=== PATIENT | female | born 2000 | race Caucasian/White ===

== ENCOUNTER 2024-11-16 16:45 | Inpatient (IN) ==
--- OUTSIDE RECORDS SUMMARY | 2024-11-16 16:52 | External Medical Summary | Continuity of Care Document ---
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 Role Phone Luanne Sawyer Primary Care Physician [phone] [id number] Date(s): 10/10/24 - 10/10/24 [place] [address] [address] [facility] Diagnostic Radiology [address] [place] [address] Discharge Disposition: Home or Self Care Attending Physician: HARESH Dennis Davine Referring Physician: HARESH Dennis Davine Allergies, Adverse Reactions, Alerts Substance Criticality Severity Reaction Reaction Severity Status soy nausea, upset stomach Active adhesive tape Rash Itching Blister Active Cipro Confusion Active Percocet seizure Active Drysol Rash Active Augmentin hearing loss Active Glutens intolerance Active milk products Intolerance to lactose Diarrhea Active Cyproheptadine Hydrochloride leg cramps Active Latex ??? Active Mucinex Unable to assess criticality Severe Wheezing symptom Angioedema and/or urticaria Active Immunizations Given and Recorded Vaccine Date Status Refusal Reason influenza virus vaccine, inactivated 09/21/22 Give n influenza virus vaccine, inactivated 06/28/19 Give n influenza virus vaccine, inactivated 08/09/18 Give n influenza virus vaccine, inactivated 09/16/03 Jae rded SARS-CoV-2 (COVID-19) mRNA-1273 vaccine 02/15/21 R ecorded SARS-CoV-2 (COVID-19) mRNA-1273 vaccine 01/13/21 R ecorded pneumococcal 23-valent vaccine 06/28/19 Given hepatitis A pediatric vaccine 04/10/18 Given meningococcal conjugate vaccine 04/10/18 Given meningococcal conjugate vaccine 06/18/15 Recorded human papillomavirus vaccine 02/27/16 Recorded human papillomavirus vaccine 09/05/15 Recorded human papillomavirus vaccine 06/18/15 Recorded varicella virus vaccine 06/18/15 Recorded varicella virus vaccine 07/20/01 Recorded tetanus/diphtheria/pertuss, acel (Tdap) 1 06/18/15 Recorded tetanus/diphtheria/pertuss, acel (Tdap) 06/18/15 R ecorded measles/mumps/rubella virus vaccine 2 06/18/15 Rec orded measles/mumps/rubella virus vaccine 07/05/05 Recor ded measles/mumps/rubella virus vaccine 08/03/03 Recor ded measles/mumps/rubella virus vaccine 3 10/03/02 Rec orded poliovirus vaccine, inactivated 07/05/05 Recorded poliovirus vaccine, inactivated 4 06/10/03 Recorde d poliovirus vaccine, inactivated 01/29/02 Recorded poliovirus vaccine, inactivated 01/17/01 Recorded poliovirus vaccine, inactivated 00 Recorded poliovirus vaccine, inactivated 00 Recorded poliovirus vaccine, inactivated 5 00 Recorde d diphtheria/tetanus/pertuss, acel (DTaP) 07/05/05 R ecorded diphtheria/tetanus/pertuss, acel (DTaP) 01/29/02 R ecorded diphtheria/tetanus/pertuss, acel (DTaP) 01/17/01 R ecorded diphtheria/tetanus/pertuss, acel (DTaP) 00 R ecorded diphtheria/tetanus/pertuss, acel (DTaP) 00 R ecorded influenza virus vaccine, live 6 10/03/02 Recorded hepatitis B pediatric vaccine 10/23/01 Recorded hepatitis B pediatric vaccine 00 Recorded hepatitis B pediatric vaccine 00 Recorded 1Result Comment: [04/06/2017 Uncharted] double entry 2Result Comment: 2021-02-19: Historical information-source unspecified 3Result Comment: 2021-02-19: Historical information-source unspecified 4Result Comment: 2021-02-19: Historical information-source unspecified 5Result Comment: 2021-02-19: Historical information-source unspecified 6Result Comment: [04/05/2017 Uncharted] error Medications Aimovig SureClick Autoinjector 140 mg/mL subcutaneous solution Start: 04/14/23 3:14:00 PM EDT, See Instructions, Disp# 1 mL, Refills: 11, inject 1 milliliter subcutaneously Every Month, Pharmacy: [facility] #[id number] Start Date: 04/14/23 Status: Ordered atomoxetine 40 mg oral capsule Start: 08/06/24 11:05:00 AM EST, 1 cap, PO, qAM, Disp# 90 cap, Refills: 0, Pharmacy: [facility] [id number] Start Date: 08/06/24 Status: Ordered Avita 0.025% topical cream Start: 04/10/20 12:31:00 PM EDT, 1 appl, topical, qhs, PRN Start Date: 04/10/20 Status: Ordered B-Plex (Vitamin B Complex) oral tablet Start: 03/04/19 1:25:00 PM EDT, 1 tab, PO, Daily Start Date: 03/04/19 Status: Ordered Botox. Start: 10/21/19 8:15:00 AM EST, under both under arms q 6 months Start Date: 10/21/19 Status: Ordered clonazePAM 1 mg oral tablet, disintegrating Start: 06/09/22 9:14:00 AM EDT, See Instructions, Disp# 10 tab, Refills: 0, 1 to 2 tab as needed for auras/seizures, PRN: seizures, Pharmacy: [facility] #[id number] Start Date: 06/09/22 Status: Ordered Creon 36,000 units oral delayed release capsule Start: 09/09/22 9:15:00 AM EST, See Instructions, Disp# 240 cap, Refills: 11, take 2 capsules by mouth four times a day (TAKE 2 CAPSULES WITH EACH MEAL AND 1 CAPSULE WITH EACH SNACK), Pharmacy: [facility] #[id number] Start Date: 09/09/22 Status: Ordered DULoxetine 60 mg oral delayed release capsule Start: 08/06/24 11:05:00 AM EST, 1 cap, PO, Daily, Disp# 90 cap, Refills: 0, Pharmacy: [facility] [id number] Start Date: 08/06/24 Status: Ordered Emla 2.5%-2.5% topical cream Start: 12/27/19 5:30:00 PM EDT, 1 appl, topical, ONCE, Disp# 30 g, Refills: 3, 15-20 minutes prior to immunoglobulin infusion Start Date: 12/27/19 Status: Ordered EPINEPHrine 0.3 mg injectable kit Start: 12/15/23 11:11:00 AM EDT, 0.3 mg =, IM, ONCE, Disp# 1 kit, Refills: 1, PRN: as needed for anaphylaxis, Pharmacy: [facility] #[id number] Start Date: 12/15/23 Status: Ordered famotidine 20 mg oral tablet Start: 09/30/24 12:09:00 PM EST, 1 tab, PO, bid, Disp# 180 tab, Refills: 3, Pharmacy: [id number] Start Date: 09/30/24 Status: Ordered ferrous sulfate 325 mg (65 mg elemental iron) oral delayed release tablet Start: 01/04/23 8:34:00 AM EDT, 1 tab, PO, Daily Start Date: 01/04/23 Status: Ordered Flonase 50 mcg/inh nasal spray Start: 04/10/20 12:17:00 PM EDT, 2 spray, intranasal, Daily Start Date: 04/10/20 Status: Ordered Florinef Acetate 0.1 mg oral tablet Start: 11/06/23 3:32:00 PM EST, 1 tab, PO, Daily, Disp# 90 tab, Refills: 3, Pharmacy: [facility] #[id number] Start Date: 11/06/23 Status: Ordered folic acid 1 mg oral tablet Start: 08/09/19 12:25:00 PM EST, 1 tab, PO, Daily, Disp# 90 tab, Refills: 3, other Start Date: 08/09/19 Stop Date: 08/03/20 Status: Ordered glycopyrrolate 1 mg oral tablet Start: 06/25/24 11:12:00 AM EDT, 1 tab, PO, bid, Disp# 60 tab, Refills: 0, Pharmacy: [facility]/pharmacy #[id number] Start Date: 06/25/24 Status: Ordered immune globulin 20% subcutaneous solution Start: 04/13/23 11:41:00 AM EDT, 10 g =, subQ, q7days, Disp# 40 g, prefilled syringes, other Start Date: 04/13/23 Status: Ordered lamoTRIgine 150 mg oral tablet Start: 08/06/24 3:07:00 PM EST, 1 tab, PO, bid, Disp# 180 tab, Refills: 2, Pharmacy: [facility] [id number] Start Date: 08/06/24 Status: Ordered Lotrisone 1%-0.05% topical cream Start: 05/18/23 2:19:00 PM EDT, 1 appl, topical, bid, Disp# 15 g, Refills: 0, Apply to the skin up to twice daily for 7days as needed for itching, Pharmacy: [facility][id number] Start Date: 05/18/23 Stop Date: 05/25/23 Status: Ordered Metoprolol Succinate ER 25 mg oral tablet, extended release Start: 08/08/24 10:29:00 AM EST, 2 tab, PO, Daily, Disp# 180 tab, Refills: 2, Pharmacy: [facility] [id number] Start Date: 08/08/24 Status: Ordered Nitro-Bid 2% transdermal ointment Start: 12/10/18 4:45:00 PM EDT, 1 inch, topical, tid, for Raynaud's, PRN: See Order Comments Start Date: 12/10/18 Status: Ordered norethindrone 5 mg oral tablet Start: 02/15/24 5:15:00 PM EDT, 1 tab, PO, Daily, Disp# 90 tab, Refills: 0, [id number] Start Date: 02/15/24 Status: Ordered traZODone 50 mg oral tablet Start: 09/05/23 2:06:00 PM EST, 0.5 tab, PO, qhs, Disp# 45 tab, Refills: 0, Pharmacy: [facility] Start Date: 09/05/23 Status: Ordered Xembify 20% subcutaneous solution Start: 08/26/24 5:45:00 PM EST, 10 g =, subQ, q7days, Disp# 40 g, other Start Date: 08/26/24 Status: Ordered ZyrTEC 10 mg oral tablet Start: 07/02/24 11:51:00 AM EDT, 1 tab, PO, bid, Disp# 60 tab, Refills: 0, PRN: as needed for allergy symptoms, [id number] Start Date: 07/02/24 Stop Date: 08/01/24 Status: Ordered Problem List Condition Confirmation Course Effective Dates Status Health Status Informant Abdominal muscle pain Confirmed Active Chronic allergic rhinitis Confirmed Active Allergy to adhesive Confirmed Active Allergy status to other drugs, medicaments and biological substances Confirmed Active Attention deficit hyperactivity disorder (ADHD) Confirmed Active 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 Celiac disease Confirmed Active 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 deficiency Confirmed Active Dysmenorrhea Confirmed Active Dysphagia Confirmed Active Epilepsy Confirmed 09/19/16 Active Exocrine pancreatic insufficiency Confirmed Active Foot drop Confirmed Active Right radial head fracture Confirmed Active GERD (gastroesophageal reflux disease) Confirmed Active 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 Father has Manley's muscular dystrophy Procedures Procedure Date Related Diagnosis Body Site Status Trigger point infiltration o f local anesthetic and steroid 04/14/23 Completed Trigger point infiltration o f local anesthetic and steroid 02/14/23 Completed Injection 1 11/25/22 Completed Procedure 2 10/12/22 Completed Injection 3 08/30/22 Completed Injection 4 07/22/22 Completed Trigger point injection 06/08/22 C ompleted Trigger point injection 03/29/22 C ompleted Trigger point injection 01/21/22 C ompleted Trigger point injection 12/08/21 C ompleted TPI - Trigger point injection 10/13/21 Completed TPI - Trigger point injection 5 03/24/21 Completed TAP - transversus abdominus plane block 09/23/20 Completed Endoscopy 2013 Completed Biopsy 7 04/09/07 Completed Tonsillectomy and adenoidectomy 2004 Completed Appendectomy 04/2002 Completed Enteroplasty 04/2002 Completed Adelaide fundoplication 04/2002 Com pleted Tube feeding 8 04/2002 Completed Pyloroplasty 00 Completed Colonoscopy 9 Completed Insertion - action 10 Com pleted 1TPI 2TPI right uppper quadrant 3TPI 4TPI 5abdominal 6multiple 7Muscle biopsy (left vastus lateralis) 8Twice and removed twice 9multiple 10nexplanon Oct 21 2021 Results Radiology Reports * Exam Date Time Procedure Performing Provider Status 10/10/24 1:14 PM US Transvaginal Non-OB Nimisha Davis ; Final Notes: (US Transvaginal Non-OB) Reason For Exam: Concerned about endometriosis and PCOS US Transvaginal Non-OB EXAMINATION: US Transvaginal Non-OB CLINICAL HISTORY: R10.9: Unspecified abdominal pain; R53.83: Other fatigue; R63.5: Abnormal weight gain; Concerned about endometriosis and PCOS LMP: No recent menses on control. COMPARISON: Transvaginal ultrasound from 09/01/2015. TECHNIQUE: Transvaginal grayscale and color Doppler ultrasound images of the pelvis with survey transabdominal views when needed. FINDINGS: UTERUS: Normal in size and configuration. No myometrial mass. 7.1 x 2.5 x 3.2 cm (length x AP x width) ENDOMETRIUM: Small amount of fluid within the endometrium and cervix. Thickness: 3 mm. OVARIES: Blood flow with color Doppler is documented to both ovaries. Right ovary: 2.9 x 2.7 x 2.5 cm. Normal. Left ovary: 2.2 x 2.6 x 1.9 cm. Normal. ADNEXA/CUL-DE-SAC: No free fluid. IMPRESSION: 1. Small amount of fluid within the endometrium and cervix, nonspecific. 2. Normal sonographic appearance of both ovaries. [place] Act 112: This study does not meet the requirements of [place] Act 112. Dr. Ayde Bruce is the dictating resident. Finalized reports status indicates that the attendinghas reviewed the images and report, and agrees with the interpretation. Preliminary report status should be regarded as NOT interpreted by the attending radiologist. Workstation ID: [id number] Final Dictated by:MD Bruce Janelle Dictated DT/TM:10/11/2024 9:40 Resident:MD Bruce Janelle Signed by:MD Lazaro Nabeel I Signed (Electronic Signature):10/11/2024 9:39 a Social History Social History Type Response Tobacco Household tobacco co ncerns: No. Smoking Status Never smoked cigaret dora Sex Female Sex Representation Female (finding) Implantable Device List Procedure Provider Procedure Date Device Type Site Unknown Unknown 10/21/21 Unknown Unknown Device Identifier Serial Number Lot or Batch Number Manufacturing Date Expiration Date Distinct Identification Code MRI Safety Implantable Status Assigning Authority Unknown 1 Unknown Unknown Unknown Unknown Unknown Unknown Active U nknown 1left inner upper arm Patient Care team information Care Team Personnel Name: MD Juan, Obie Brice Position: Provider - Terminated Member Role: Lifetime Relationship Address: [address] [facility] [place] [address] [place] [address] [place] Name: Hasmukh, PhD, Ignacia Dumont Position: Physician - Sleep Medicine Member Role: Lifetime Relationship Address: [address] [place] [address] [place] Name: MD Sherif, Dillon Cano Position: Physician - Family Med Member Role: Lifetime Relationship Address: [address] [place] [address] [place] Name: MD Eliot, Ravi Barahona Position: Referring Member Role: Lifetime Relationship Address: [facility] [address] [place] [address] [address] [place] [address] [place] Name: HARESH Elizabeth Hillarie B Position: Nurse Practitioner - Psychotherapy Member Role: Lifetime Relationship Address: [address] [place] [address] [place] Name: DO Sawyer Helen M Position: Resident Member Role: Primary Care Provider Address: [address] [place] [address] Care Team Related Persons Name: MEAGAN BRYAN Name: TRAVIS BRYAN Name: TRAVIS BRYAN
--- OUTSIDE RECORDS SUMMARY | 2024-11-16 16:52 | External Medical Summary | Continuity of Care Document ---
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 Role Phone Luanne Sawyer Primary Care Physician [phone] Encounter [facility] [id number] Date(s): 10/10/24 - 10/10/[address] [id number] Encounter Diagnosis Abnormal weight gain(Discharge Diagnosis) - 10/10/24 Other fatigue(Discharge Diagnosis) - 10/10/24 Unspecified abdominal pain(Discharge Diagnosis) - 10/10/24 Discharge Disposition: Home or Self Care Attending Physician: HARESH Dennis Davine Referring Physician: HARESH Dennis Davine Allergies, Adverse Reactions, Alerts Substance Criticality Severity Reaction Reaction Severity Status adhesive tape Rash Itching Blister Active Cipro Confusion Active Percocet seizure Active Drysol Rash Active Augmentin hearing loss Active Glutens intolerance Active milk products Intolerance to lactose Diarrhea Active soy nausea, upset stomach Active Cyproheptadine Hydrochloride leg cramps Active Latex [...] inject 1 milliliter subcutaneously Every Month, Pharmacy: [facility] #[id number] Start Date: 04/14/23 Status: Ordered atomoxetine 40 mg oral capsule Start: 08/06/24 11:05:00 AM EST, 1 cap, PO, qAM, Disp# 90 cap, Refills: 0, Pharmacy: [facility] [id number] Start Date: 08/06/24 Status: Ordered Avita 0.025% [...] as needed for auras/seizures, PRN: seizures, Pharmacy: [facility] #[id number] Start Date: 06/09/22 Status: Ordered Creon 36,000 units oral delayed release capsule Start: 09/09/22 9:15:00 AM EST, See Instructions, Disp# 240 cap, Refills: 11, take 2 capsules by mouth four times a day (TAKE 2 CAPSULES WITH EACH MEAL AND 1 CAPSULE WITH EACH SNACK), Pharmacy: [facility] #[id number] Start Date: 09/09/22 Status: Ordered DULoxetine 60 mg oral delayed release capsule Start: 08/06/24 11:05:00 AM EST, 1 cap, PO, Daily, Disp# 90 cap, Refills: 0, Pharmacy: [facility] [id number] Start Date: 08/06/24 Status: Ordered Emla 2.5%-2.5% topical cream Start: 12/27/19 5:30:00 PM EDT, 1 appl, topical, ONCE, Disp# 30 g, Refills: 3, 15-20 minutes prior to immunoglobulin infusion Start Date: 12/27/19 Status: Ordered EPINEPHrine 0.3 mg injectable kit Start: 12/15/23 11:11:00 AM EDT, 0.3 mg =, IM, ONCE, Disp# 1 kit, Refills: 1, PRN: as needed for anaphylaxis, Pharmacy: [facility] #[id number] Start Date: 12/15/23 Status: Ordered famotidine 20 mg oral tablet Start: 09/30/24 12:09:00 PM EST, 1 tab, PO, bid, Disp# 180 tab, Refills: 3, Pharmacy: [id number] Start Date: 09/30/24 Status: Ordered ferrous sulfate [...] Daily, Disp# 90 tab, Refills: 3, Pharmacy: [facility] #[id number] Start Date: 11/06/23 Status: Ordered folic acid 1 mg oral tablet Start: 08/09/19 12:25:00 PM EST, 1 tab, PO, Daily, Disp# 90 tab, Refills: 3, other Start Date: 08/09/19 Stop Date: 08/03/20 Status: Ordered glycopyrrolate 1 mg oral tablet Start: 06/25/24 11:12:00 AM EDT, 1 tab, PO, bid, Disp# 60 tab, Refills: 0, Pharmacy: [facility]acy #[id number] Start Date: 06/25/24 Status: Ordered immune globulin 20% subcutaneous solution Start: 04/13/23 11:41:00 AM EDT, 10 g =, subQ, q7days, Disp# 40 g, prefilled syringes, other Start Date: 04/13/23 Status: Ordered lamoTRIgine 150 mg oral tablet Start: 08/06/24 3:07:00 PM EST, 1 tab, PO, bid, Disp# 180 tab, Refills: 2, Pharmacy: [id number] Start Date: 08/06/24 Status: Ordered Lotrisone 1%-0.05% topical cream Start: 05/18/23 2:19:00 PM EDT, 1 appl, topical, bid, Disp# 15 g, Refills: 0, Apply to the skin up to twice daily for 7days as needed for itching, [facility] #[id number] Start Date: 05/18/23 Stop Date: 05/25/23 Status: Ordered Metoprolol Succinate ER 25 mg oral tablet, extended release Start: 08/08/24 10:29:00 AM EST, 2 tab, PO, Daily, Disp# 180 tab, Refills: 2, Pharmacy: [facility] [id number] Start Date: 08/08/24 Status: Ordered Nitro-Bid 2% transdermal ointment Start: 12/10/18 4:45:00 PM EDT, 1 inch, topical, tid, for Raynaud's, PRN: See Order Comments Start Date: 12/10/18 Status: Ordered norethindrone 5 mg oral tablet Start: 02/15/24 5:15:00 PM EDT, 1 tab, PO, Daily, Disp# 90 tab, Refills: 0, [id number] Start Date: 02/15/24 Status: Ordered traZODone 50 mg oral tablet Start: 09/05/23 2:06:00 PM EST, 0.5 tab, PO, qhs, Disp# 45 tab, Refills: 0, Pharmacy: [facility] Start Date: 09/05/23 Status: Ordered Xembify 20% subcutaneous solution Start: 08/26/24 5:45:00 PM EST, 10 g =, subQ, q7days, Disp# 40 g, other Start Date: 08/26/24 Status: Ordered ZyrTEC 10 mg oral tablet Start: 07/02/24 11:51:00 AM EDT, 1 tab, PO, bid, Disp# 60 tab, Refills: 0, PRN: as needed for allergy symptoms, Pharmacy: [facility]/pharmacy #[id number] Start Date: 07/02/24 Stop Date: 10/31/24 Status: Ordered Problem List Condition Confirmation Course [...] of dystrophinopathy. Father has Manley's muscular dystrophy Diagnosis Diagnosis Type Effective Dates Health Status Clinical Service Informant Abnormal weight gain Discharge Diagnosis 10/10/24 Other fatigue Discharge Diagnosis 10/10/24 Unspecified abdominal pain Discharge Diagnosis 10/10/24 Procedures Procedure Date Related Diagnosis Body Site [...] removed twice 9multiple 10nexplanon Oct 21 2021 Social History Social History Type Response Tobacco [...] Care Team Personnel Name: MD Juan, Obie H Position: Provider - Terminated Member Role: Lifetime Relationship Address: [address] [place] [address] [place] [address] [place] Name: Hasmukh, PhD, Ignacia Dumont Position: Physician - Sleep Medicine Member Role: Lifetime Relationship Address: [address] [place] [address] [address] [place] [address] [place] Name: MD Sherif, Dillon Cano Position: Physician - Family Med Member Role: Lifetime Relationship Address: [address] [place] [address] [place] Name: MD Eliot, Ravi Barahona Position: Referring Member Role: Lifetime Relationship Address: [facility] [address] [place] [address] [address] [place] [address] [place] Name: HARESH Elizabeth Hillarie B Position: Nurse Practitioner - Psychotherapy Member Role: Lifetime Relationship Address: [address] [place] [address] [place] Name: DO Sawyer Helen M Position: Resident Member Role: Primary Care Provider Address: [address] [place] [address] [place] Care Team Related Persons Name: MEAGAN BRYAN Name: TRAVIS BRYAN Name: TRAVIS BRYAN
--- OUTSIDE RECORDS SUMMARY | 2024-11-16 16:53 | External Medical Summary | Continuity of Care Document ---
Author Name Unknown Organization [facility] [address] [place] [address] KEN CHOE [id number] Encounter P[facility] FINNBR [id number] Date(s): 08/26/24 - 08/26/24 [facility] [address] [facility] [address] [facility] [place] [id number] [phone] Encounter Diagnosis Body mass index [BMI] 29.0-29.9, adult(Discharge Diagnosis) - 08/26/24 CVID (common variable immunodeficiency)(Discharge Diagnosis) - 08/26/24 Chronic allergic rhinitis(Discharge Diagnosis) - 08/26/24 Dysmenorrhea(Discharge Diagnosis) - 08/26/24 Dysphagia(Discharge Diagnosis) - 08/26/24 GERD (gastroesophageal reflux disease)(Discharge Diagnosis) - 08/26/24 LARRY (generalized anxiety disorder)(Discharge Diagnosis) - 08/26/24 POTS (postural orthostatic tachycardia syndrome)(Discharge Diagnosis) - 08/26/24 Lactose intolerance.(Discharge Diagnosis) - 08/26/24 Irritable bowel syndrome with diarrhea(Discharge Diagnosis) - 08/26/24 Discharge Disposition: Home or Self Care Attending Physician: MD Shan, [place] Allergies, Adverse Reactions, Alerts Substance Criticality Severity [...] inject 1 milliliter subcutaneously Every Month, Pharmacy: [facility] #[id number] Start Date: 04/14/23 Status: Ordered atomoxetine 40 mg oral capsule Start: 08/06/24 11:05:00 AM EST, 1 cap, PO, qAM, Disp# 90 cap, Refills: 0, Pharmacy: [email or web address] [id number] Start Date: 08/06/24 Status: Ordered Avita 0.025% [...] as needed for auras/seizures, PRN: seizures, Pharmacy: [facility] #[id number] Start Date: 06/09/22 Status: Ordered Creon 36,000 units oral delayed release capsule Start: 09/09/22 9:15:00 AM EST, See Instructions, Disp# 240 cap, Refills: 11, take 2 capsules by mouth four times a day (TAKE 2 CAPSULES WITH EACH MEAL AND 1 CAPSULE WITH EACH SNACK), Pharmacy: [facility] #[id number] Start Date: 09/09/22 Status: Ordered DULoxetine 60 mg oral delayed release capsule Start: 08/06/24 11:05:00 AM EST, 1 cap, PO, Daily, Disp# 90 cap, Refills: 0, Pharmacy: [id number] Start Date: 08/06/24 Status: Ordered Emla 2.5%-2.5% topical cream Start: 12/27/19 5:30:00 PM EDT, 1 appl, topical, ONCE, Disp# 30 g, Refills: 3, 15-20 minutes prior to immunoglobulin infusion Start Date: 12/27/19 Status: Ordered EPINEPHrine 0.3 mg injectable kit Start: 12/15/23 11:11:00 AM EDT, 0.3 mg =, IM, ONCE, Disp# 1 kit, Refills: 1, PRN: as needed for anaphylaxis, Pharmacy: [facility] #[id number] Start Date: 12/15/23 Status: Ordered famotidine 20 mg oral tablet Start: 07/02/24 11:50:00 AM EDT, 1 tab, PO, bid, Disp# 180 tab, Refills: 0, Pharmacy: [facility]/pharmacy #[id number] Start Date: 07/02/24 Stop Date: 09/30/24 Status: Ordered ferrous sulfate 325 [...] Daily, Disp# 90 tab, Refills: 3, Pharmacy: [facility] #[id number] Start Date: 11/06/23 Status: Ordered folic acid 1 mg oral tablet Start: 08/09/19 12:25:00 PM EST, 1 tab, PO, Daily, Disp# 90 tab, Refills: 3, other Start Date: 08/09/19 Stop Date: 08/03/20 Status: Ordered glycopyrrolate 1 mg oral tablet Start: 06/25/24 11:12:00 AM EDT, 1 tab, PO, bid, Disp# 60 tab, Refills: 0, Pharmacy: [facility]/pharmacy #[id number] Start Date: 06/25/24 Status: Ordered immune globulin 20% subcutaneous solution Start: 04/13/23 11:41:00 AM EDT, 10 g =, subQ, q7days, Disp# 40 g, prefilled syringes, other Start Date: 04/13/23 Status: Ordered lamoTRIgine 150 mg oral tablet Start: 08/06/24 3:07:00 PM EST, 1 tab, PO, bid, Disp# 180 tab, Refills: 2, Pharmacy: [id number] Start Date: 08/06/24 Status: Ordered Lotrisone 1%-0.05% topical cream Start: 05/18/23 2:19:00 PM EDT, 1 appl, topical, bid, Disp# 15 g, Refills: 0, Apply to the skin up to twice daily for 7days as needed for itching, Pharmacy: [facility] #[id number] Start Date: 05/18/23 Stop Date: 05/25/23 Status: Ordered Metoprolol Succinate ER 25 mg oral tablet, extended release Start: 08/08/24 10:29:00 AM EST, 2 tab, PO, Daily, Disp# 180 tab, Refills: 2, Pharmacy: [id number] Start Date: 08/08/24 Status: Ordered Nitro-Bid 2% transdermal ointment Start: 12/10/18 4:45:00 PM EDT, 1 inch, topical, tid, for Raynaud's, PRN: See Order Comments Start Date: 12/10/18 Status: Ordered norethindrone 5 mg oral tablet Start: 02/15/24 5:15:00 PM EDT, 1 tab, PO, Daily, Disp# 90 tab, Refills: 0, Pharmacy: [facility]/pharmacy #[id number] Start Date: 02/15/24 Status: Ordered traZODone 50 mg oral tablet Start: 09/05/23 2:06:00 PM EST, 0.5 tab, PO, qhs, Disp# 45 tab, Refills: 0, Pharmacy: [facility] Start Date: 09/05/23 Status: Ordered Xembify 20% subcutaneous solution Start: 08/26/24 5:45:00 PM EST, 10 g =, subQ, q7days, Disp# 40 g, other Start Date: 08/26/24 Status: Ordered ZyrTEC 10 mg oral tablet Start: 07/02/24 11:51:00 AM EDT, 1 tab, PO, bid, Disp# 60 tab, Refills: 0, PRN: as needed for allergy symptoms, Pharmacy: [email or web address]/pharmacy #[id number] Start Date: 07/02/24 Stop Date: 08/01/24 Status: Ordered Mental Status 08/26/24 Barriers to Learning one year Cognitive deficit, Vision impairment Mandatory Health Literacy Documentation Yes Health Literacy Communication Barriers N ever Primary Language Surinamese Problem List Condition Confirmation Course Effective Dates [...] Effective Dates Health Status Clinical Service Informant Chronic allergic rhinitis Discharge Diagnosis 08/26/24 Lactose intolerance. Discharge Diagnosis 08/26/24 Irritable bowel syndrome with diarrhea Discharge Diagnosis 08/26/24 Body mass index [BMI] 29.0-29.9, adult Discharge Diagnosis 08/26/24 Non-Specified Dysphagia Discharge Diagnosis 08/26/24 POTS (postural orthostatic tachycardia syndrome) Discharge Diagnosis 08/26/24 Dysmenorrhea Discharge Diagnosis 08/26/24 GERD (gastroesophageal reflux disease) Discharge Diagnosis 08/26/24 LARRY (generalized anxiety disorder) Discharge Diagnosis 08/26/24 CVID (common variable immunodeficiency) Discharge Diagnosis 08/26/24 Procedures Procedure Date Related Diagnosis Body Site [...] removed twice 9multiple 10nexplanon Oct 21 2021 Vital Signs Most recent to oldest [Reference Range]: 1 Height 170 cm (08/26/24 3:53 PM) Patient Weight 84.3 kg (08/26/24 3:53 PM) Body Mass Index 29.17 kg/m2 (08/26/24 3:53 PM) Temperature [36.5-37.9 DegC] 37.0 DegC (08/26/24 3:53 PM) Heart Rate 87 bpm (08/26/24 3:53 PM) Respiratory Rate 16 br/min (08/26/24 3:53 PM) Blood Pressure 134/84mmHg (08/26/24 3:53 PM) Mean Blood Pressure 101 mmHg (08/26/24 3:53 PM) BP Location # 1 Left Arm (08/26/24 3:53 PM) Social History Social History Type Response Tobacco [...] Terminated Member Role: Lifetime Relationship Address: [address] [place] [address] [place] [address] [place] Name: Hasmukh, PhD, Ignacia Dumont Position: Physician - Sleep Medicine Member Role: Lifetime Relationship Address: [address] [place] [address] [place] Name: MD Sherif, Dillon Cano Position: Physician - Family Med Member Role: Lifetime Relationship Address: [address] [place] [address] [place] Name: MD Eliot, Ravi Barahona Position: Referring Member Role: Lifetime Relationship Address: [facility] [address] [place] [address] [place] Name: HARESH Elizabeth Hillarie B Position: Nurse Practitioner - Psychotherapy Member Role: Lifetime Relationship Address: [place] [address] Care Team Related Persons Name: MEAGAN BRYAN Name: TRAVIS BRYAN Name: TRAVIS BRYAN
--- OUTSIDE RECORDS SUMMARY | 2024-11-16 16:53 | External Medical Summary | Continuity of Care Document ---
Author Name Unknown Organization [facility] [address] [id number] Care Team Providers Care Licensed Optical Dispenser Name Role Phone Silverio Luanen M Primary Care Physician [phone] [id number] Date(s): 10/01/24 - 10/01/24 [facility] [address] [facility] [address] [address] Encounter Diagnosis Body mass index [BMI] 29.0-29.9, adult(Discharge Diagnosis) - 10/01/24 Weight gain(Discharge Diagnosis) - 10/01/24 Fatigue(Discharge Diagnosis) - 10/01/24 Abdominal cramping(Discharge Diagnosis) - 10/01/24 Discharge Disposition: Home or Self Care Attending Physician: HARESH Dennis Davine Allergies, Adverse Reactions, Alerts Substance Criticality Severity Reaction Reaction Severity Status milk products Intolerance to lactose Diarrhea Active adhesive tape Rash Itching Blister Active Cipro Confusion Active Percocet seizure Active Drysol Rash Active Augmentin hearing loss Active Glutens intolerance Active soy nausea, upset stomach Active Cyproheptadine Hydrochloride leg cramps Active Latex ??? Active Mucinex Unable to assess criticality Severe Wheezing symptom Angioedema and/or urticaria Active Assessment and Plan Extracted from: Title:Acute Visit Note - DM Author:HARESH Dennis Davine Date:10/01/24 1.Weight gain I am not sure what to make of her weight gain and the myriad ofsymptoms that she hasat this point. Another thing patient and mother mentioned was having high sugars. Last sugar level was 122 and this was random; patient reports not eating prior to July blood work. LH, FSH, TSH, T4, T3, TPO, and [id number]. Will also order an US abdomen given patient's cramping.If there is any hormone abnormality, I will likely refer/consult with endocrinology. It is possible she has PCOS. I did recommend that patient follow up with [facility] [facility] in regards to endometriosis and if another referral to surgery is needed. Patient does go to [facility] and will likely need a lot of telemedicine appointments for follow up. Recommend 1 month follow up. Patient and mother's relationship is interesting. Mother was very upset today and feels her daughter's concerns are being dismissed. 2.Fatigue See above. 3.Abdominal cramping See above. Follow up: 1 month This note was completed using [employer] dictation software. There may be random grammar errors due to background noise or failure of the voice recognition software to fully understand my voice. A total time of 45minutes was spent on the care of this patient. Activities include: chart review, history, exam, and counseling. Immunizations Given and Recorded Vaccine Date Status [...] inject 1 milliliter subcutaneously Every Month, Pharmacy: [facility] #[id number] Start Date: 04/14/23 Status: Ordered atomoxetine 40 mg oral capsule Start: 08/06/24 11:05:00 AM EST, 1 cap, PO, qAM, Disp# 90 cap, Refills: 0, Pharmacy: [id number] Start Date: 08/06/24 Status: Ordered Avita 0.025% [...] for auras/seizures, PRN: seizures, Pharmacy: [facility] #[id number] Start Date: 06/09/22 Status: Ordered Creon 36,000 units oral delayed release capsule Start: 09/09/22 9:15:00 AM EST, See Instructions, Disp# 240 cap, Refills: 11, take 2 capsules by mouth four times a day (TAKE 2 CAPSULES WITH EACH MEAL AND 1 CAPSULE WITH EACH SNACK), Pharmacy: [facility] #[id number] Start Date: 09/09/22 Status: Ordered DULoxetine 60 mg oral delayed release capsule Start: 08/06/24 11:05:00 AM EST, 1 cap, PO, Daily, Disp# 90 cap, Refills: 0, Pharmacy: [id number] Start Date: 08/06/24 Status: Ordered Emla 2.5%-2.5% topical cream Start: 12/27/19 5:30:00 PM EDT, 1 appl, topical, ONCE, Disp# 30 g, Refills: 3, 15-20 minutes prior to immunoglobulin infusion Start Date: 12/27/19 Status: Ordered EPINEPHrine 0.3 mg injectable kit Start: 12/15/23 11:11:00 AM EDT, 0.3 mg =, IM, ONCE, Disp# 1 kit, Refills: 1, PRN: as needed for anaphylaxis, Pharmacy: [facility] #[id number] Start Date: 12/15/23 Status: Ordered famotidine 20 mg oral tablet Start: 09/30/24 12:09:00 PM EST, 1 tab, PO, bid, Disp# 180 tab, Refills: 3, Pharmacy: [id number] Start Date: 09/30/24 Status: Ordered ferrous sulfate [...] Daily, Disp# 90 tab, Refills: 3, Pharmacy: [facility] #[id number] Start Date: 11/06/23 Status: Ordered folic acid 1 mg oral tablet Start: 08/09/19 12:25:00 PM EST, 1 tab, PO, Daily, Disp# 90 tab, Refills: 3, other Start Date: 08/09/19 Stop Date: 08/03/20 Status: Ordered glycopyrrolate 1 mg oral tablet Start: 06/25/24 11:12:00 AM EDT, 1 tab, PO, bid, Disp# 60 tab, Refills: 0, Pharmacy: [facility]/pharmacy #[id number] Start Date: 06/25/24 Status: Ordered immune globulin 20% subcutaneous solution Start: 04/13/23 11:41:00 AM EDT, 10 g =, subQ, q7days, Disp# 40 g, prefilled syringes, other Start Date: 04/13/23 Status: Ordered lamoTRIgine 150 mg oral tablet Start: 08/06/24 3:07:00 PM EST, 1 tab, PO, bid, Disp# 180 tab, Refills: 2, Pharmacy: [id number] Start Date: 08/06/24 Status: Ordered Lotrisone 1%-0.05% topical cream Start: 05/18/23 2:19:00 PM EDT, 1 appl, topical, bid, Disp# 15 g, Refills: 0, Apply to the skin up to twice daily for 7days as needed for itching, Pharmacy: [facility] #[id number] Start Date: 05/18/23 Stop Date: 05/25/23 Status: Ordered Metoprolol Succinate ER 25 mg oral tablet, extended release Start: 08/08/24 10:29:00 AM EST, 2 tab, PO, Daily, Disp# 180 tab, Refills: 2, Pharmacy: [id number] Start Date: 08/08/24 Status: Ordered Nitro-Bid 2% transdermal ointment Start: 12/10/18 4:45:00 PM EDT, 1 inch, topical, tid, for Raynaud's, PRN: See Order Comments Start Date: 12/10/18 Status: Ordered norethindrone 5 mg oral tablet Start: 02/15/24 5:15:00 PM EDT, 1 tab, PO, Daily, Disp# 90 tab, Refills: 0, Pharmacy: [facility]/pharmacy #[id number] Start Date: 02/15/24 Status: Ordered traZODone 50 mg oral tablet Start: 09/05/23 2:06:00 PM EST, 0.5 tab, PO, qhs, Disp# 45 tab, Refills: 0, Pharmacy: [facility] Start Date: 09/05/23 Status: Ordered Xembify 20% subcutaneous solution Start: 08/26/24 5:45:00 PM EST, 10 g =, subQ, q7days, Disp# 40 g, other Start Date: 08/26/24 Status: Ordered ZyrTEC 10 mg oral tablet Start: 07/02/24 11:51:00 AM EDT, 1 tab, PO, bid, Disp# 60 tab, Refills: 0, PRN: as needed for allergy symptoms, Pharmacy: [facility] #[id number] Start Date: 07/02/24 Stop Date: 08/01/24 Status: Ordered Mental Status 10/01/24 Barriers to Learning one year Cognitive deficit, Vision impairment Mandatory Health Literacy Documentation Yes Health Literacy Communication Barriers N ever Primary Language Macedonian Problem List Condition Confirmation Course Effective Dates [...] Diagnosis Diagnosis Type Effective Dates Health Status Cl inical Service Informant Body mass index [BMI] 29.0-29.9, adult Discharge Diagnosis 10/01/24 Non-Specified Abdominal cramping Discharge Diagnosis 10/01/24 Non-Specified Fatigue Discharge Diagnosis 10/01/24 Non-Specified Weight gain Discharge Diagnosis 10/01/24 Non-Specified Procedures Procedure Date Related Diagnosis Body Site [...] twice 9multiple 10nexplanon Oct 21 2021 Results Laboratory List Name Date Anti-TPO Antibodies (ANTI TPO) 10/01/24 Complete Blood Count (CBC) 10/01/24 Follicle Stimulating Hormone Level (FSH) 10/01/24 Free T3 (T3, FREE) 10/01/24 Hemoglobin A1C (HEMOGLOBIN, A1C) 4 Luteinizing Hormone (LH) 10/01/24 T4, Free (T4, FREE) 10/01/24 Thyroid Stimulating Hormone (TSH) Most recent to oldest [Reference Range]: 1 Estimated Average Glucose 103 mg/dL (10/01/24 11:52 AM) MPV [9.0-12.2 fL] 9.4 fL (10/01/24 11:52 AM) RDW [11.5-14.2 %] 12.2 % (10/01/24 11:52 AM) Anti TPO [<35 I.U./mL] 31 I.U./mL (10/01/24 11:52 AM) FSH 5.30 mIU/mL 1 (10/01/24 11:52 AM) HbA1c [<5.7 %] 5.2 % 2 (10/01/24 11:52 AM) Hct [35-44 %] 44.3 % *HI* (10/01/24 11:52 AM) Hgb [11.7-15.0 g/dL] 14.6 g/dL (10/01/24 11:52 AM) LH 18.40 mIU/mL 3 (10/01/24 11:52 AM) MCH [28-33 pg] 30.2 pg (10/01/24 11:52 AM) MCHC [32-36 g/dL] 33.0 g/dL (10/01/24 11:52 AM) MCV [81-96 fL] 91.7 fL (10/01/24 11:52 AM) Plts [150-350 K/uL] 402 K/uL *HI* (10/01/24 11:52 AM) RBC [3.90-5.00 M/uL] 4.83 M/uL (10/01/24 11:52 AM) Free T4 [0.9-1.7 ng/dL] 1.15 ng/dL (10/01/24 11:52 AM) TSH [0.30-4.20 uIU/mL] 3.41 uIU/mL (10/01/24 11:52 AM) WBC [4.0-10.4 K/uL] 10.76 K/uL *HI* (10/01/24 11:52 AM) Free T3 [2.0-4.4 pg/mL] 3.2 pg/mL (10/01/24 11:52 AM) 1Result Comment: FOLLICULAR: 3.5-12.5 OVULATION PHASE: 4.7-21.5 LUTEAL PHASE: 1.7-7.7 POSTMENOPAUSE: 25.8-134.8 2Result Comment: ADA Recommended [place]utton Reference Range: Normal: <5.7% Prediabetes: 5.7-6.4% Diabetes: >6.4% Hb A1c results in patients with severe anemia or recent RBC transfusion are unreliable and do not represent the patient glycemic control. 3Result Comment: Follicular Phase: 2.40-12.60 Mid Cycle Peak: 14.00-95.60 Luteal Phase: 1.00-11.40 Post Menopausal 7.70-58.50 Vital Signs Most recent to oldest [Reference Range]: 1 2 Height 170 cm (10/01/24 10:56 AM) Patient Weight 86.2 kg (10/01/24 10:56 AM) Body Mass Index 29.83 kg/m2 (10/01/24 10:56 AM) Temperature [36.5-37.9 DegC] 35.9 DegC *LOW* (10/01/24 10:56 AM) Heart Rate 95 bpm (10/01/24 10:56 AM) Respiratory Rate 16 br/min (10/01/24 10:56 AM) Blood Pressure 118/80mmHg (10/01/24 12:45 PM) 130/92mmHg (10/01/24 10:56 AM) Cuff Pulse Pressure 38 mmHg (10/01/24 10:56 AM) BP Location # 1 Right Arm (10/01/24 10:56 AM) Social History Social History Type Response Tobacco [...] Active U nknown 1left inner upper arm Medicine Outpt Note * HARESH Dennis Davine: PERFORM Event Display: Medicine Outpt Note Authored Date: [id number] Chief Complaint patient reports having abdominal cramps, mood swings, nausea , unintentional weight gain over the last year History of Present Illness Patient is a24 yearFemalewith a history of carnitine deficiency,CVID, depression, dysmenorrhea, dysphagia, epilepsy, exocrine pancreatic insufficiency, LARRY, GERD, IBS with diarrhea, celiac disease, POTSpresenting to the office today with complaints of weight gain. Patient presents todaywith her mother. Patient gave most of the HPI, but mother also interjected her concerns as well. Patient has been having chronic cramping and nausea with loss of appetite. In the last year, shehas gain 50 pounds. Patient reports there are days that she gets very hungry and can eat, but then there are days that she cannot eat. Patient needs to eat high protein because of her epilepsy disorder. Her family does have thyroid disorder including Ines and Graves. In December 2023, she went toher [facility] who thought her cramping may be related to endometriosis and referred her to surgery. She reports that Surgery didn't want to see her. Patient's mother expresses a lot of concerns about being dismissed and not getting any answers. Luis Eduardo mentions a lot that she has never had her hormones checks despite being placed on so many hormone therapy. Primary Care Physician:DO Sawyer Helen M Review of Systems As noted in the HPI, all other systems reviewed and negative for 14 point ROS. Physical Exam Vitals & Measurements T:35.9C HR:95(Monitored) RR:16 BP:130/92 SpO2:91% HT:170cm WT:86.200kg(Dosing) WT:86.2kg BMI:29.83 PHQ2 Data(Data Documented on:10/01/2024 10:53) Emotional health assessment NEGATIVE General: Patient is alert and orientedx 3.Patient inno acute distress. Patient sitting comfortably in chair. HEENT: No lymphadenopathy. No Thyroid masses or nodules appreciated. Heart:Regular rate and rhythm. No rubs, murmurs, or gallops. Lungs:Clear to auscultation bilaterally. No wheezes, rhonchi, or rales. No accessory muscle use noted.. Abdomen:Normoactive bowel sounds in all 4 quadrants. No tenderness to percussion or palpation in all 4 quadrants. Neuro:Gait intact without instability. CN grossly intact. Psych: Appropriate mood and affect. Diagnostic Results FINDINGS: PANCREAS: The visualized portion of the pancreas is unremarkable. There is normal direction of flowin the splenic vein at the pancreatic bed. LIVER: The liver is normal in size, shape, and echotexture with no focal abnormalities identified. Visualized portal vein and hepatic veins show normal direction of flow. Main portal vein measures 7 mm. Liver: 17.2 cm long. GALLBLADDER AND BILE DUCTS: There is no intrahepatic or extrahepatic biliary dilation. The gallbladder is decompressed due to patient eating fatty meal 4 hours prior to examination. Common bile duct: 2.6 mm Sonographic Pratt's sign is negative. RIGHT KIDNEY: The right kidney is normal in size, shape and echogenicity. Renal cortical thickness is maintained. No evidence of hydronephrosis. There is no perinephric fluid. Right kidney: 11.0 x 4.8 x 3.8 cm OTHER: No free fluid seen. IMPRESSION: Suboptimal evaluation due to decompressed gallbladder secondary to recent postprandial state. No gross abnormality is identified. Negative sonographic Pratt's. [1] Assessment/Plan 1.Weight gain I am not sure what to make of her weight gain and the myriad ofsymptoms that she hasat this point. Another thing patient and mother mentioned was having high sugars. Last sugar level was 122 and this was random; patient reports not eating prior to July blood work. LH, FSH, TSH, T4, T3, TPO, and [id number]. Will also order an US abdomen given patient's cramping.If there is any hormoneabnormality, I will likely refer/consult with endocrinology. It is possible she has PCOS. I did recommend that patient follow up with [facility] [facility] in regards to endometriosis and if another referralto surgery is needed. Patient does go to [facility] and will likely need a lot of telemedicine appointments for follow up. Recommend 1 month follow up. Patient and mother's relationship is interesting. Mother was very upset today and feels her daughter's concerns are being dismissed. 2.Fatigue See above. 3.Abdominal cramping See above. Follow up: 1 month This note was completed using [employer] dictation software. There may be random grammar errors due to background noise or failure of the voice recognition software to fully understand my voice. A total time of 45minutes was spent on the care of this patient. Activities include: chart review, history, exam, and counseling. 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 Celiac disease Chronic allergic rhinitis CVID (common variable immunodeficiency) Depression Dysmenorrhea Dysphagia Epilepsy Exocrine pancreatic insufficiency Foot drop LARRY (generalized anxiety disorder) GERD (gastroesophageal reflux disease) Headache Hyperhidrosis Irritable bowel syndrome with diarrhea Knee pain Kyphosis Lactose intolerance Multiple melanocytic nevus Nexplanon in place Adelaide fundoplication| Status: Inactive Pectus excavatum Post-inflammatory hyperpigmentation POTS (postural orthostatic tachycardia syndrome) Pyloroplasty| Status: Inactive Rivas syndrome Right bundle branch block Right radial head fracture Vitamin D deficiency Weight loss Resolved Anxiety disorder, unspecified Appendectomy Biopsy of muscle Feeding tube Gastroesophageal reflux study Hydrocephalus Procedure/Surgical History Trigger point infiltration of local anesthetic and steroid| Service Date: 04/14/2023Trigger point infiltration of local anesthetic and steroid| Service Date: 02/14/2023Injection| Service Date: 11/25/2022rocedure| Service Date: 10/12/2022Injection| Service Date: 08/30/2022Injection| Service Date: 07/22/2022Trigger point injection| Service Date: 06/08/2022Trigger point injection| Service Date: 03/29/2022Trigger point injection| Service Date: 01/21/2022Trigger point injection| Service Date: 12/08/2021TPI - Trigger point injection| Service Date: 10/13/2021TPI - Trigger point injection| Service Date: 03/24/2021TAP - transversus abdominus plane block| Service Date: 09/23/2020Endoscopy| Service Date: 2014Biopsy| Service Date: 04/09/2007Tonsillectomy and adenoidectomy| Service Date: 2004Appendectomy| Service Date: 04/2002Tube feeding| Service Date: 04/2002Nissen fundoplication| Service Date: 04/2002Enteroplasty| Service Date: 04/2002Pyloroplasty| Service Date: 2000ColonoscopyInsertion - action Medications atomoxetine(atomoxetine 40 mg oral capsule), 1 cap, PO, qAM betamethasone-clotrimazole topical(Lotrisone 1%-0.05% topical cream), 1 appl, topical, bid cetirizine(ZyrTEC 10 mg oral tablet), 10 mg= 1 tab, PO, bid, PRN clonazePAM(clonazePAM 1 mg oral tablet, disintegrating), See Instructions, PRN DULoxetine(DULoxetine 60 mg oral delayed release capsule), 1 cap, PO, Daily EPINEPHrine(EPINEPHrine 0.3 mg injectable kit), 0.3 mg, IM, ONCE, PRN, 1 refills erenumab(Aimovig SureClick Autoinjector 140 mg/mL subcutaneous solution), See Instructions, 11 refills famotidine(famotidine 20 mg oral tablet), 1 tab, PO, bid ferrous sulfate(ferrous sulfate 325 mg (65 mg elemental iron) oral delayed release tablet), 325 mg=1 tab, PO, Daily fludrocortisone(Florinef Acetate 0.1 mg oral tablet), 0.1 mg= 1 tab, PO, Daily, 3 refills fluticasone nasal(Flonase 50 mcg/inh nasal spray), 2 spray, intranasal, Daily folic acid(folic acid 1 mg oral tablet), 1 mg= 1 tab, PO, Daily, 3 refills glycopyrrolate(glycopyrrolate 1 mg oral tablet), 1 mg= 1 tab, PO, bid immune globulin subcutaneous(immune globulin 20% subcutaneous solution), 10 g, subQ, q7days immune globulin subcutaneous(Xembify 20% subcutaneous solution), 10 g, subQ, q7days lamoTRIgine(lamoTRIgine 150 mg oral tablet), 1 tab, PO, bid lidocaine-prilocaine topical(Emla 2.5%-2.5% topical cream), 1 appl, topical, ONCE, 3 refills metoprolol(Metoprolol Succinate ER 25 mg oral tablet, extended release), 2 tab, PO, Daily multivitamin(B-Plex (Vitamin B Complex) oral tablet), 1 tab, PO, Daily nitroglycerin(Nitro-Bid 2% transdermal ointment), 1 inch, topical, tid, PRN norethindrone(norethindrone 5 mg oral tablet), 5 mg= 1 tab, PO, Daily onabotulinumtoxinA(Botox.) pancrelipase(Creon 36,000 units oral delayed release capsule), See Instructions traZODone(traZODone 50 mg oral tablet), 25 mg= 0.5 tab, PO, qhs tretinoin topical(Avita 0.025% topical cream), 1 appl, topical, qhs Allergies Mucinex(Severe)Wheezing symptom, Angioedema and/or urticaria Augmentinhearing loss CiproConfusion Cyproheptadine Hydrochlorideleg cramps DrysolRash Glutensintolerance Latex??? Percocetseizure adhesive tapeRash, Itching, Blister milk productsIntolerance to lactose, Diarrhea soynausea, upset stomach Social History Smoking Status Never smoked cigarettes Employment/School Status:Student Home/Environment Lives with:Father, Mother, Siblings Tobacco Concerns about tobacco use in household:No Family History ADD - Attention deficit disorder: Sister and Brother. Anxiety: Sister and Brother. Arthritis: Mother. Asthma: MGM. Blood clot: Mother. Cancer: PGF. Cardiac surgery: MGF and PGM. Cardiomyopathy: Father. Chest pain: MGF and PGM. Congenital heart disease: Mother. Deafness congenital...: Mother. Depression: Sister and Brother. Dysautonomia: Mother and Maternal Uncle. Exocrine pancreatic insufficiency: Mother. Factor 5 Leiden mutation, heterozygous...: Mother. Fainting episodes...: Mother. Fibromyalgia: MGM. Graves disease: Mother. Ines's disease: MGM. Heart attack: MGF. Hyperlipidemia: MGM. Irregular heart beat: MGF. Kidney disease: MGM. Liver disease: PGF. Lupus: Mother. MS - Multiple sclerosis: Father. Migraine: Mother, Sister and Brother. Muscular dystrophy: Father and Sister. PFO (patent foramen ovale)...: Mother. Pacemaker...: MGF. Postural orthostatic tachycardia syndrome: Mother and Brother. Seasonal allergies...: Mother. Seizure: Unknown. Stroke: Mother. Thyroid disease: Mother and MGM. Health Status Family Member(s) Family Member(s) Relationship: MGF, Age: 70 Years Relationship: MGM, Age: 79 Years Relationship: PGF, Age: 39 Years Immunizations Vaccine Date Status influenza virus vaccine, inactivated 09/21/2022 Given SARS-CoV-2 (COVID-19) mRNA-1273 vaccine 02/15/2021 Recorded SARS-CoV-2 (COVID-19) mRNA-1273 vaccine 01/13/2021 Recorded influenza virus vaccine, inactivated 06/28/2019 Given pneumococcal 23-valent vaccine 06/28/2019 Given influenza virus vaccine, inactivated 08/09/2018 Given hepatitis A pediatric vaccine 04/10/2018 Given meningococcal conjugate vaccine 04/10/2018 Given human papillomavirus vaccine 02/27/2016 Recorded human papillomavirus vaccine 09/05/2015 Recorded varicella virus vaccine 06/18/2015 Recorded meningococcal conjugate vaccine 06/18/2015 Recorded human papillomavirus vaccine 06/18/2015 Recorded tetanus/diphtheria/pertuss, acel (Tdap) 06/18/2015 Recorded measles/mumps/rubella virus vaccine 06/18/2015 Recorded Comments : 2021-02-19: Historical information-source unspecified measles/mumps/rubella virus vaccine 07/05/2005 Recorded poliovirus vaccine, inactivated 07/05/2005 Recorded diphtheria/tetanus/pertuss, acel (DTaP) 07/05/2005 Recorded influenza virus vaccine, inactivated 09/16/2003 Recorded measles/mumps/rubella virus vaccine 08/03/2003 Recorded poliovirus vaccine, inactivated 06/10/2003 Recorded Comments : 2021-02-19: Historical information-source unspecified measles/mumps/rubella virus vaccine 10/03/2002 Recorded Comments : 2021-02-19: Historical information-source unspecified poliovirus vaccine, inactivated 01/29/2002 Recorded diphtheria/tetanus/pertuss, acel (DTaP) 01/29/2002 Recorded hepatitis B pediatric vaccine 10/23/2001 Recorded varicella virus vaccine 2001 Recorded poliovirus vaccine, inactivated 01/17/2001 Recorded diphtheria/tetanus/pertuss, acel (DTaP) 01/17/2001 Recorded poliovirus vaccine, inactivated 2000 Recorded hepatitis B pediatric vaccine 2000 Recorded diphtheria/tetanus/pertuss, acel (DTaP) 2000 Recorded poliovirus vaccine, inactivated 2000 Recorded hepatitis B pediatric vaccine 2000 Recorded diphtheria/tetanus/pertuss, acel (DTaP) 2000 Recorded poliovirus vaccine, inactivated 2000 Recorded Comments : 2021-02-19: Historical information-source unspecified Recommendations Health Maintenance Pending(in the next year) OverDue Lipid Screening due10/18/23and every 1826day Adult Influenza Vaccine due03/31/24and every 1year Due Adult COVID-19 Vaccination due10/01/24Unknown Frequency Adult Folic Acid Supplementation due10/01/24and every 3year Adult Social Determinants of Health Screening due10/01/24Unknown Frequency Pneumococcal Vaccine Adults and Adolescents with Chronic Illness due10/01/24One-time only Shingles Vaccine due10/01/24One-time only Satisfied(in the past 1 year) Satisfied Body Mass Index on10/01/24.Satisfied by [employer] [1]ULTRASOUND ABDOMEN LIMITED STUDY-PED; MD Aleks, Jose Dumont 09/23/2017 00:18 EST Electronic Signature on File CC: Luanne Sawyer DO [address] [facility] [address] Electronically Reviewed/Signed by: HARESH Lundberg Author Signature Dt/Tm:10/01/2024 12:45 PM Division of Internal Medicine DM Patient Care team information Care Team Personnel Name: MD Juan, Obie Brice Position: Provider - Terminated Member Role: Lifetime Relationship Address: [address] [place] [address] [place] Name: Hasmukh, , Ignacia Dumont Position: Physician - Sleep Medicine Member Role: Lifetime Relationship Address: [address] [place] [address] [place] [id number] [place] Name: MD Gorman John J Position: Physician - Family Med Member Role: Lifetime Relationship Address: [address] [place] [address] [place] Name: MD Mccabe Brent D Position: Referring Member Role: Lifetime Relationship Address: [facility] [address] [place] [address] [address] [place] [address] [place] Name: HARESH Elizabeth Hillarie B Position: Nurse Practitioner - Psychotherapy Member Role: Lifetime Relationship Address: [address] [place] [address] [place] Name: DO Sawyer Helen M Position: Resident Member Role: Primary Care Provider Address: [address] [place] [address] [place] Care Team Related Persons Name: MEAGAN BRYAN Name: TRAVIS BRYAN Name: TRAVIS BRYAN"
--- OUTSIDE RECORDS SUMMARY | 2024-11-16 16:53 | External Medical Summary | Continuity of Care Document ---
Author Name Unknown Organization [facility] [address] [place] [id number] Encounter [facility]NBR [id number] Date(s): 07/16/24 - 07/16/24 [facility] [address] [facility] [address] [place] [address] Encounter Diagnosis Celiac disease(Discharge Diagnosis) - 07/16/24 Allergy status to other drugs, medicaments and biological substances(Discharge Diagnosis) - 07/16/24 CVID (common variable immunodeficiency)(Discharge Diagnosis) - 07/16/24 POTS (postural orthostatic tachycardia syndrome)(Discharge Diagnosis) - 07/16/24 Vitamin D deficiency(Discharge Diagnosis) - 07/16/24 Discharge Disposition: Home or Self Care Attending Physician: MD Faustino, Larissa Tellez Allergies, Adverse Reactions, Alerts Substance Criticality Severity Reaction Reaction Severity Status Glutens intolerance Active soy nausea, upset stomach Active adhesive tape Rash Itching Blister Active Cipro Confusion Active Percocet seizure Active Drysol Rash Active Augmentin hearing loss Active milk products Intolerance to lactose Diarrhea Active Mucinex Unable to assess criticality Severe Wheezing symptom Angioedema and/or urticaria Active Cyproheptadine Hydrochloride leg cramps Active Latex ??? Active Assessment and Plan Extracted from: Title:Office Visit Note Author:DO Sawyer Helen M Date:07/16/24 Ms. Alaina Bryan is a 23yo F w/ PMH of CVID, celiac's,chronic rhinitis, epilepsy, anxiety, depression, ADHD, POTS who presents to establish care and to f/u. #CVID #Multiple allergies - Continue famotidine and zyrtec as previously prescribed. 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 The patient was evaluated and discussed with attending physician, Dr. Harmon. The above assessment and plan should be considered preliminary until attested by attending physician. Please see attestation for further changes and final recommendations. Luanne Sawyer, DO Internal Medicine PGY1 Immunizations Given and Recorded Vaccine Date Status [...] inject 1 milliliter subcutaneously Every Month, Pharmacy: [facility] #[id number] Start Date: 04/14/23 Status: Ordered atomoxetine 40 mg oral capsule Start: 04/22/24 11:47:00 AM EDT, 1 cap, PO, qAM, Disp# 90 cap, Refills: 0, Pharmacy: [facility]/pharmacy #[id number] Start Date: 04/22/24 Status: Ordered Avita 0.025% topical cream Start: [...] as needed for auras/seizures, PRN: seizures, Pharmacy: [facility] #[id number] Start Date: 06/09/22 Status: Ordered Creon 36,000 units oral delayed release capsule Start: 09/09/22 9:15:00 AM EST, See Instructions, Disp# 240 cap, Refills: 11, take 2 capsules by mouth four times a day (TAKE 2 CAPSULES WITH EACH MEAL AND 1 CAPSULE WITH EACH SNACK), [facility]acy: [facility] #[id number] Start Date: 09/09/22 Status: Ordered Cymbalta 60 mg oral delayed release capsule Start: 04/22/24 11:48:00 AM EDT, 1 cap, PO, Daily, Disp# 90 cap, Refills: 0, Pharmacy: [facility]/pharmacy #[id number] Start Date: 04/22/24 Stop Date: 07/21/24 Status: Ordered Emla 2.5%-2.5% topical cream Start: 12/27/19 5:30:00 PM EDT, 1 appl, topical, ONCE, Disp# 30 g, Refills: 3, 15-20 minutes prior to immunoglobulin infusion Start Date: 12/27/19 Status: Ordered EPINEPHrine 0.3 mg injectable kit Start: 12/15/23 11:11:00 AM EDT, 0.3 mg =, IM, ONCE, Disp# 1 kit, Refills: 1, PRN: as needed for anaphylaxis, Pharmacy: [facility] #[id number] Start Date: 12/15/23 Status: Ordered famotidine 20 mg oral tablet Start: 07/02/24 11:50:00 AM EDT, 1 tab, PO, bid, Disp# 180 tab, Refills: 0, Pharmacy: [facility]/pharmacy #[id number] Start Date: 07/02/24 Stop Date: 09/30/24 [...] Daily, Disp# 90 tab, Refills: 3, Pharmacy: [facility] #[id number] Start Date: 11/06/23 Status: Ordered folic acid 1 mg oral tablet Start: 08/09/19 12:25:00 PM EST, 1 tab, PO, Daily, Disp# 90 tab, Refills: 3, other Start Date: 08/09/19 Stop Date: 08/03/20 Status: Ordered glycopyrrolate 1 mg oral tablet Start: 06/25/24 11:12:00 AM EDT, 1 tab, PO, bid, Disp# 60 tab, Refills: 0, Pharmacy: [facility]/pharmacy #[id number] Start Date: 06/25/24 Status: Ordered immune globulin 20% subcutaneous solution Start: 04/13/23 11:41:00 AM EDT, 10 g =, subQ, q7days, Disp# 40 g, prefilled syringes, other Start Date: 04/13/23 Status: Ordered lamoTRIgine 150 mg oral tablet Start: 08/01/23 1:11:00 PM EDT, 1 tab, PO, bid, Disp# 60 tab, Refills: 11, Pharmacy: [facility] Start Date: 08/01/23 Status: Ordered Lotrisone 1%-0.05% topical cream Start: 05/18/23 2:19:00 PM EDT, 1 appl, topical, bid, Disp# 15 g, Refills: 0, Apply to the skin up to twice daily for 7days as needed for itching, Pharmacy: [facility] #[id number] Start Date: 05/18/23 Stop Date: 05/25/23 Status: Ordered metoprolol succinate 25 mg oral tablet, extended release Start: 10/30/23 12:57:00 PM EST, 2 tab, PO, Daily, Disp# 180 tab, Refills: 3, take 1/2 tab for 1 week then 1 tab for 1 week, then 1 1/2 tabs for 1 week then 2 tabs daily, Pharmacy: [facility] Start Date: 10/30/23 Status: Ordered Nitro-Bid 2% transdermal ointment Start: 12/10/18 4:45:00 PM EDT, 1 inch, topical, tid, for Raynaud's, PRN: See Order Comments Start Date: 12/10/18 Status: Ordered norethindrone 5 mg oral tablet Start: 02/15/24 5:15:00 PM EDT, 1 tab, PO, Daily, Disp# 90 tab, Refills: 0, Pharmacy: [facility]/pharmacy #[id number] Start Date: 02/15/24 Status: Ordered traZODone 50 mg oral tablet Start: 09/05/23 2:06:00 PM EST, 0.5 tab, PO, qhs, Disp# 45 tab, Refills: 0, Pharmacy: [facility] Start Date: 09/05/23 Status: Ordered ZyrTEC 10 mg oral tablet Start: 07/02/24 11:51:00 AM EDT, 1 tab, PO, bid, Disp# 60 tab, Refills: 0, PRN: as needed for allergy symptoms, Pharmacy: [facility]/pharmacy #[id number] Start Date: 07/02/24 Stop Date: 08/01/24 [...] Effective Dates Health Status Clinical Service Informant Celiac disease Discharge Diagnosis 07/16/24 Allergy status to other drugs, medicaments and biological substances Discharge Diagnosis 07/16/24 POTS (postural orthostatic tachycardia syndrome) Discharge Diagnosis 07/16/24 Vitamin D deficiency Discharge Diagnosis 07/16/24 CVID (common variable immunodeficiency) Discharge Diagnosis 07/16/24 Procedures Procedure Date Related Diagnosis Body Site [...] inner upper arm Medicine Outpt Note * MD Faustino, Larissa Tellez: MODIFY MD Harmon Debra Q: MODIFY, MODIFY Event Display: Medicine Outpt Note Authored Date: [id number] History of Present Illness TeleHealth Visit Note I have confirmed the patients name and date of . The patient has consented to this service,and I have advised the patient that this is a billable visit for which they may be subject to a copay. [x ] The patient has initiated this visit after he/she was informed of the availability of telehealth for this medically necessary visit. [ _ ] The provider initiated this visit after explaining the need for this visit to the patient, who has consented to this virtual visit. I am located at my: [ _ ] Home [x] Office [ _ ] Other: _ The patient is located at: [x ] Home [ _ ] Other: _ This visit was conducted via live audio/video technology: [ x] [facility] [_] Zoom Total time spent communicating with the patient:44minutes Ms. Alaina Bryan is a 23yo F w/ PMH of CVID, celiac's,chronic rhinitis, epilepsy, anxiety, depression, ADHD, POTS who presents to establish care and to f/u. Pt over the last few months has developed multiple allergies, necessitating the use of an epipen once. Pt has been having severe facial flushing every night for over a month which is painful and uncomfortable. She has tried lifestyle modifications like showering to cool herself down, avoiding knownallergens, and cleaning her room often to minimize exposure. Since her last visit, her famotidine was increased from 10to 20mg twice daily and to increase her zrytec to 10mg twice daily. She reports minor improvement in her symptoms with this changes. She is concerned that she has an element of mast cell activation because her mom has been diagnosed with this and she is having similar symptoms. She was advised to follow up with Dr. Torrez, who is her financial sales associate and also an detailer. She was diagnosed with celiac's disease as a child but has not been following with GI for several years and has not had recent celiac labs. - Immunizations - Flu:despite reduced benefit, advised to get this year - COVID-19: - Tdap (q10y):given in 2014, due next year - HPV (thru 26 yo): given in 2014 - Age Appropriate Cancer Screenings - Pap smear (21-65 yo):last done in 2022, normal - ID Screenings - STD panel done in April - Other - AWV:advised to come in person duringbreak for physical last pap smear in 2022 covid and flu needed HPV unknown 44 minutes order CBC, CMP, TTG, Vit D Refer to gastroenteroigst put in vitamin D supplementation advised to f/u with her immunologst Review of Systems Constitutional: no fever, no chills, no sweats, no weakness Skin:+flushing, no jaundiceno rash, no lesions, no petechiae, +itchiness ENMT: no ear pain, no sore throat, no congestion, no hoarseness Respiratory: no shortness of breath, no cough, no orthopnea, no wheezing Cardiovascular: no chest pain, no palpitations, no edema Gastrointestinal: no nausea, no vomiting, no diarrhea, no GI bleeding Genitourinary: no dysuria, no hematuria, no discharge, no pain Neurologic: no headache, no dizziness, no numbness, no weakness Allergy/Immunologic:+seasonal allergies, +impaired immunity, +hives to unknown allergens Additional ROS info: Except as noted in the above Review of Systems and in the History of Present Illness all other systems have been reviewed and are negative or noncontributory. Physical Exam Note: Physical exam limited due to TeleHealth visit General:No apparent distress.Alert and cooperative. Lungs:No wheezing / conversational dyspnea noted. Neuro: Speech clear and fluent. Psych:Appropriate and cooperative. Communicating / answering questions appropriately. Good insight and judgement. Assessment/Plan Ms. Alaina Bryan is a 23yo F w/ PMH of CVID, celiac's,chronic rhinitis, epilepsy, anxiety, depression, ADHD, POTS who presents to establish care and to f/u. #CVID #Multiple allergies - Continue famotidine and zyrtec as previously prescribed. 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 The patient was evaluated and discussed with attending physician, Dr. Harmon. The above assessment and plan should be considered preliminary until attested by attending physician. Please see attestation for further changes and final recommendations. Luanne Sawyer, DO Internal Medicine PGY1 Attestation Attending note: Patient seenand participated in part of the telehealth visit with resident and agree with above plan. Recommended that she follow-up in the allergy clinic for herallergy/facial flushingsymptoms. Recommend checkingceliac labs as aboveand referred her to GI to be followed in Inflammatory Bowel disease clinic. Problem List/Past Medical History Ongoing Abdominal muscle [...] mg oral tablet, disintegrating), See Instructions, PRN DULoxetine(Cymbalta 60 mg oral delayed release capsule), 60 mg= 1 cap, PO, Daily EPINEPHrine(EPINEPHrine 0.3 mg [...] subQ, q7days lamoTRIgine(lamoTRIgine 150 mg oral tablet), 150 mg= 1 tab, PO, bid, 11 refills lidocaine-prilocaine topical(Emla 2.5%-2.5% topical cream), 1 appl, topical, ONCE, 3 refills metoprolol(metoprolol succinate 25 mg oral tablet, extended release), 50 mg= 2 tab, PO, Daily, 3 refills multivitamin(B-Plex (Vitamin B Complex) oral tablet), 1 [...] due03/31/24and every 1year Due Adult COVID-19 Vaccination due07/16/24Unknown Frequency Adult Folic Acid Supplementation due07/16/24and every 3year Adult Social Determinants of Health Screening due07/16/24Unknown Frequency Pneumococcal Vaccine Adults and Adolescents with Chronic Illness due07/16/24One-time only Shingles Vaccine due07/16/24One-time only Due In Future Body Mass Index not due until04/18/25and every 366day Satisfied(in the past 1 year) Satisfied Body Mass Index on03/29/24.Satisfied by Dagoberto Cardenas Electronic Signature on File Electronically Reviewed/Signed by: Luanne Sawyer DO Author Signature Dt/Tm:07/18/2024 11:21 AM Resident Division of Internal Medicine Electronically Reviewed/Signed by: Larissa Harmon MD Cosigner Signature Dt/Tm: 07/18/2024 01:21 PM Division of Internal Medicine [facility] Patient Care team information Care Team Personnel Name: MD Juan, Obie Brice Position: Provider - Terminated Member Role: Lifetime Relationship Address: [address] [place] [address] [place] [address] [place] Name: Hasmukh, PhD, Ignacia Dumont Position: Physician - Sleep Medicine Member Role: Lifetime Relationship Address: [address] [place] [address] [place] [id number] [place] Name: MD Sherif, Dillon Cano Position: Physician - Family Med Member Role: Lifetime Relationship Address: [address] [place] [address] [place] Name: MD Eliot, Ravi Barahona Position: Referring Member Role: Lifetime Relationship Address: [facility] [address] [place] [address] [address] [place] [address] [place] Name: HARESH Elizabeth Hillarie B Position: Nurse Practitioner - Psychotherapy Member Role: Lifetime Relationship Address: [address] [place] [address] [place] Care Team Related Persons Name: MEAGAN BRYAN Name: TRAVIS BRYAN Name: TRAVIS BRYAN"
--- OUTSIDE RECORDS SUMMARY | 2024-11-16 16:53 | External Medical Summary | Continuity of Care Document ---
Author Name Unknown Organization [address] Address [address] [place] [phone] Care Team Providers Care Intake Nurse Name Role Phone Silverio Luanne M Primary Care Physician [phone] [id number] [facility] [id number] Date(s): 10/03/24 - 10/03/[address] [phone] Discharge Disposition: Home or Self Care Attending Physician: MD Shan, [facility] Referring Physician: MD Pardeep, Eden Ramos Allergies, Adverse Reactions, Alerts Substance Criticality Severity Reaction Reaction Severity Status adhesive tape Rash Itching Blister Active Cipro Confusion Active Percocet seizure Active Drysol Rash Active Augmentin hearing loss Active Glutens intolerance Active milk products Intolerance to lactose Diarrhea Active soy nausea, upset stomach Active Latex ??? Active Mucinex Unable to assess criticality Severe Wheezing symptom Angioedema and/or urticaria Active Cyproheptadine Hydrochloride leg cramps Active Immunizations Given and Recorded Vaccine Date [...] milliliter subcutaneously Every Month, Pharmacy: [facility] #[id number] Start Date: 04/14/23 Status: Ordered atomoxetine 40 mg oral capsule Start: 08/06/24 11:05:00 AM EST, 1 cap, PO, qAM, Disp# 90 cap, Refills: 0, Pharmacy: [id number] Start Date: 08/06/24 Status: Ordered Avita 0.025% [...] for auras/seizures, PRN: seizures, Pharmacy: [facility] #[id number] Start Date: 06/09/22 Status: Ordered Creon 36,000 units oral delayed release capsule Start: 09/09/22 9:15:00 AM EST, See Instructions, Disp# 240 cap, Refills: 11, take 2 capsules by mouth four times a day (TAKE 2 CAPSULES WITH EACH MEAL AND 1 CAPSULE WITH EACH SNACK), Pharmacy: [facility] #[id number] Start Date: 09/09/22 Status: Ordered DULoxetine 60 mg oral delayed release capsule Start: 08/06/24 11:05:00 AM EST, 1 cap, PO, Daily, Disp# 90 cap, Refills: 0, Pharmacy: [id number] Start Date: 08/06/24 Status: Ordered Emla 2.5%-2.5% topical cream Start: 12/27/19 5:30:00 PM EDT, 1 appl, topical, ONCE, Disp# 30 g, Refills: 3, 15-20 minutes prior to immunoglobulin infusion Start Date: 12/27/19 Status: Ordered EPINEPHrine 0.3 mg injectable kit Start: 12/15/23 11:11:00 AM EDT, 0.3 mg =, IM, ONCE, Disp# 1 kit, Refills: 1, PRN: as needed for anaphylaxis, Pharmacy: [facility] #[id number] Start Date: 12/15/23 Status: Ordered famotidine 20 mg oral tablet Start: 09/30/24 12:09:00 PM EST, 1 tab, PO, bid, Disp# 180 tab, Refills: 3, Pharmacy: [id number] Start Date: 09/30/24 Status: Ordered ferrous sulfate [...] Daily, Disp# 90 tab, Refills: 3, Pharmacy: [facility] #[id number] Start Date: 11/06/23 Status: Ordered folic acid 1 mg oral tablet Start: 08/09/19 12:25:00 PM EST, 1 tab, PO, Daily, Disp# 90 tab, Refills: 3, other Start Date: 08/09/19 Stop Date: 08/03/20 Status: Ordered glycopyrrolate 1 mg oral tablet Start: 06/25/24 11:12:00 AM EDT, 1 tab, PO, bid, Disp# 60 tab, Refills: 0, Pharmacy: [facility] #[id number] Start Date: 06/25/24 Status: Ordered immune globulin 20% subcutaneous solution Start: 04/13/23 11:41:00 AM EDT, 10 g =, subQ, q7days, Disp# 40 g, prefilled syringes, other Start Date: 04/13/23 Status: Ordered lamoTRIgine 150 mg oral tablet Start: 08/06/24 3:07:00 PM EST, 1 tab, PO, bid, Disp# 180 tab, Refills: 2, Pharmacy: [id number] Start Date: 08/06/24 Status: Ordered Lotrisone 1%-0.05% topical cream Start: 05/18/23 2:19:00 PM EDT, 1 appl, topical, bid, Disp# 15 g, Refills: 0, Apply to the skin up to twice daily for 7days as needed for itching, Pharmacy: [facility] #[id number] Start Date: 05/18/23 Stop Date: 05/25/23 Status: Ordered Metoprolol Succinate ER 25 mg oral tablet, extended release Start: 08/08/24 10:29:00 AM EST, 2 tab, PO, Daily, Disp# 180 tab, Refills: 2, Pharmacy: [id number] Start Date: 08/08/24 Status: Ordered Nitro-Bid 2% transdermal ointment Start: 12/10/18 4:45:00 PM EDT, 1 inch, topical, tid, for Raynaud's, PRN: See Order Comments Start Date: 12/10/18 Status: Ordered norethindrone 5 mg oral tablet Start: 02/15/24 5:15:00 PM EDT, 1 tab, PO, Daily, Disp# 90 tab, Refills: 0, [id number] Start Date: 02/15/24 Status: Ordered traZODone 50 mg oral tablet Start: 09/05/23 2:06:00 PM EST, 0.5 tab, PO, qhs, Disp# 45 tab, Refills: 0, Pharmacy: [facility] Start Date: 09/05/23 Status: Ordered Xembify 20% subcutaneous solution Start: 08/26/24 5:45:00 PM EST, 10 g =, subQ, q7days, Disp# 40 g, other Start Date: 08/26/24 Status: Ordered ZyrTEC 10 mg oral tablet Start: 07/02/24 11:51:00 AM EDT, 1 tab, PO, bid, Disp# 60 tab, Refills: 0, PRN: as needed for allergy symptoms, [id number] Start Date: 07/02/24 Stop Date: 08/01/24 [...] 21 2021 Results Laboratory List Name Date IMMUNOCAP SCORE (REFLEX) (IMMUNOCAP SCOR E) 10/03/24 Immunoglobulin G (IGG) 10/03/24 Respiratory Allergy Profile, Region 1 No rth [place] (RESP ALLERGY PANEL) 10/03/24 Tryptase (TRYPTASE) 10/03/24 Most recent to oldest [Reference Range]: 1 Mouse (kU/L) <0.10 1 *Unknown* (10/03/24 7:43 AM) [place], Red (kU/L) <0.10 2 *Unknown* (10/03/24 7:43 AM) White angela (kU/L) <0.10 3 *Unknown* (10/03/24 7:43 AM) Aspergillus fumigatus (kU/L) <0.10 4 *Unknown* (10/03/24 7:43 AM) Alternaria tenuis (kU/L) <0.10 5 *Unknown* (10/03/24 7:43 AM) Cat dander (kU/L) <0.10 6 *Unknown* (10/03/24 7:43 AM) Common, rough, pigweed (kU/L) <0.10 7 *Unknown* (10/03/24 7:43 AM) Common ragweed, short (kU/L) <0.10 8 *Unknown* (10/03/24 7:43 AM) D. farinae (kU/L) <0.10 9 *Unknown* (10/03/24 7:43 AM) Dog dander (kU/L) <0.10 10 *Unknown* (10/03/24 7:43 AM) D. pteronyssinus (kU/L) <0.10 11 *Unknown* (10/03/24 7:43 AM) Elm (kU/L) <0.10 12 *Unknown* (10/03/24 7:43 AM) Cladosporium herbarum (kU/L) <0.10 13 *Unknown* (10/03/24 7:43 AM) [place] (kU/L) <0.10 14 *Unknown* (10/03/24 7:43 AM) [place] grass (kU/L) <0.10 15 *Unknown* (10/03/24 7:43 AM) Penicillium notatum (kU/L) <0.10 16 *Unknown* (10/03/24 7:43 AM) Mucor racemosus (kU/L) <0.10 17 *Unknown* (10/03/24 7:43 AM) Common silver birch (kU/L) <0.10 18 *Unknown* (10/03/24 7:43 AM) Box elder, maple (kU/L) <0.10 19 *Unknown* (10/03/24 7:43 AM) [place], poplar (kU/L) <0.10 20 *Unknown* (10/03/24 7:43 AM) Cockroach (kU/L) <0.10 21 *Unknown* (10/03/24 7:43 AM) Maple leaf sycamore (kU/L) <0.10 22 *Unknown* (10/03/24 7:43 AM) [place] Tree (kU/L) <0.10 23 *Unknown* (10/03/24 7:43 AM) Immunocap Score SEE NOTE 24 (10/03/24 7:43 AM) Bermuda grass (kU/L) <0.10 25 *Unknown* (10/03/24 7:43 AM) Common mugwort (kU/L) <0.10 26 *Unknown* (10/03/24 7:43 AM) [place] (kU/L) <0.10 27 *Unknown* (10/03/24 7:43 AM) Sheep sorrel (kU/L) <0.10 28 *Unknown* (10/03/24 7:43 AM) IgE. 4 29 (10/03/24 7:43 AM) IgG [700-1600 mg/dL] 1222 mg/dL (10/03/24 7:43 AM) Tryptase 1.8 30 (10/03/24 7:43 AM) 1Result Comment: Reference range: <=0.34 Unit: kU/L 2Result Comment: Reference range: <=0.34 Unit: kU/L 3Result Comment: Reference range: <=0.34 Unit: kU/L 4Result Comment: Reference range: <=0.34 Unit: kU/L 5Result Comment: Reference range: <=0.34 Unit: kU/L 6Result Comment: Reference range: <=0.34 Unit: kU/L 7Result Comment: Reference range: <=0.34 Unit: kU/L 8Result Comment: Reference range: <=0.34 Unit: kU/L 9Result Comment: Reference range: <=0.34 Unit: kU/L 10Result Comment: Reference range: <=0.34 Unit: kU/L 11Result Comment: Reference range: <=0.34 Unit: kU/L 12Result Comment: Reference range: <=0.34 Unit: kU/L 13Result Comment: Reference range: <=0.34 Unit: kU/L 14Result Comment: Reference range: <=0.34 Unit: kU/L 15Result Comment: Reference range: <=0.34 Unit: kU/L 16Result Comment: Reference range: <=0.34 Unit: kU/L 17Result Comment: Reference range: <=0.34 Unit: kU/L 18Result Comment: Reference range: <=0.34 Unit: kU/L 19Result Comment: Reference range: <=0.34 Unit: kU/L 20Result Comment: Reference range: <=0.34 Unit: kU/L 21Result Comment: Reference range: <=0.34 Unit: kU/L 22Result Comment: Reference range: <=0.34 Unit: kU/L 23Result Comment: Reference range: <=0.34 Unit: kU/L 24Result Comment: REFERENCE INTERVAL: Allergen, Interpretation Less than 0.10 kU/L......Class 0.....No significant level detected 0.10-0.34 kU/L...........Class 0/1...Clinical relevance undetermined 0.35-0.70 kU/L...........Class 1.....Low 0.71-3.50 kU/L...........Class 2.....Moderate 3.51-17.50 kU/L..........Class 3.....High 17.51-50.00 kU/L.........Class 4.....Very High 50.01-100.00 kU/L........Class 5.....Very High Greater than 100.00kU/L..Class 6.....Very High Allergen results of 0.10-0.34 kU/L are intended for specialist use as the clinical relevance is undetermined. Even though increasing ranges are reflective of increasing concentrations of allergen-specific IgE, these concentrations may not correlate with the degree of clinical response or skin testing results when challenged with a specific allergen. The correlation of allergy laboratory results with clinical history and in vivo reactivity to specific allergens is essential. A negative test may not rule out clinical allergy or even anaphylaxis. Performed By: [facility] [address] [place] [address] Core Placer: Nolberto Herrera MD, PhD CLIA Number: [id number] 25Result Comment: Reference range: <=0.34 Unit: kU/L 26Result Comment: Reference range: <=0.34 Unit: kU/L 27Result Comment: Reference range: <=0.34 Unit: kU/L 28Result Comment: Reference range: <=0.34 Unit: kU/L Performed By: [facility] [address] [place] [address] Core Placer: Nolberto Herrera MD, PhD CLIA Number: [id number] 29Result Comment: Reference range: <=214 Unit: kU/L REFERENCE INTERVAL: Immunoglobulin E, Serum Access complete set of age- and/or gender-specific reference intervals for this test in the [facility] Test Directory ([place]). 30Result Comment: Reference range: <=10.9 Unit: ug/L Performed By: [facility] [address] [place] [address] Core Placer: Nolberto Herrera MD, PhD CLIA Number: [id number] Social History Social History Type Response Tobacco [...] - Terminated Member Role: Lifetime Relationship Address: [address] [place] [address] [place] Name: Hasmukh, PhD, Ignacia Dumont Position: Physician - Sleep Medicine Member Role: Lifetime Relationship Address: [address] [facility] [address] [place] [address] [place] Name: MD Gorman John J Position: Physician - Family Med Member Role: Lifetime Relationship Address: [address] [place] [address] [place] Name: MD Mccabe Brent D Position: Referring Member Role: Lifetime Relationship Address: [facility], [address] [place] [address] [place] Name: HARESH Elizabeth Hillarie B Position: Nurse Practitioner - Psychotherapy Member Role: Lifetime Relationship Address: [address] [place] [address] [place] Name: DO Sawyer Helen M Position: Resident Member Role: Primary Care Provider [facility] [address] [facility] [place] [address] Care Team Related Persons Name: MEAGAN BRYAN Name: TRAVIS BRYAN Name: TRAVIS BRYAN
--- OUTSIDE RECORDS SUMMARY | 2024-11-16 16:53 | External Medical Summary | Continuity of Care Document ---
Author Name Unknown Organization 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 [place] - [place], [address], [address] [place] [address] [phone] Encounter Diagnosis Body mass index [BMI] 29.0-29.9, adult(Discharge Diagnosis) - 10/03/24 Manley muscular dystrophy(Discharge Diagnosis) - 01/21/24 Discharge Disposition: Home or Self Care Attending Physician: MD Janna, Vamsi Barahona Allergies, Adverse Reactions, Alerts Substance Criticality Severity [...] urticaria Active Assessment and Plan Extracted from: Title:Clinical Document Author:MD Janna, Vamsi Barahona Date:10/03/24 CARDIOLOGY OUTPATIENT NOTE Name: ALAINA BRYAN Patient Number: [id number] : 2000 Date of Service: 10/03/2024 Alaina Bryan was seen in the cardiology office again today for follow-up in regards to her diagnosis of muscular dystrophy and family history of cardiomyopathy and muscular dystrophy. She has been feeling okay from a cardiac standpoint and is not reporting any change in symptoms to a great degree. She does report being started on a beta-rizwana since I last saw her almost 2 years ago and that is cut down on some of the palpitations that she has had. She perceives her heart rate is being slower and more steady and she does not have episodes of tachycardia as frequently. She is not reporting shortness of breath or fluid retention. She has not had any emergency room visits or urgent care assessments. I do not think there have been any unscheduled appointments to other providers. Emotional Assessment (PHQ-2) (Data Documented on:10/01/2024 10:53) [place] down or depressed over last 2 weeks? 1 - Several Days Little interest in doing things? 0 - Not at All PHQ-2 Score: 1 - Emotional health assessment NEGATIVE Current Home Meds: (Last Updated 10/03 15:27) DULoxetine (DULoxetine 60 mg oral delayed release capsule) 1 cap PO Daily EPINEPHrine (EPINEPHrine 0.3 mg injectable kit) 0.3 mg IM ONCE PRN: as needed for anaphylaxis atomoxetine (atomoxetine 40 mg oral capsule) 1 cap PO qAM betamethasone-clotrimazole topical (Lotrisone 1%-0.05% topical cream) 1 appl topical bid Apply to the skin up to twice daily for 7days as needed for itching cetirizine (ZyrTEC 10 mg oral tablet) 10 mg PO bid PRN: as needed for allergy symptoms clonazePAM (clonazePAM 1 mg oral tablet, disintegrating) PRN: seizures 1 to 2 tab as needed for auras/seizures erenumab (Aimovig SureClick Autoinjector 140 mg/mL subcutaneous solution) inject 1 milliliter subcutaneously Every Month famotidine (famotidine 20 mg oral tablet) 1 tab PO bid ferrous sulfate (ferrous sulfate 325 mg (65 mg elemental iron) oral delayed release tablet) 325 mg PO Daily fludrocortisone (Florinef Acetate 0.1 mg oral tablet) 0.1 mg PO Daily fluticasone nasal (Flonase 50 mcg/inh nasal spray) 2 spray intranasal Daily folic acid (folic acid 1 mg oral tablet) 1 mg PO Daily glycopyrrolate (glycopyrrolate 1 mg oral tablet) 1 mg PO bid immune globulin subcutaneous (Xembify 20% subcutaneous solution) 10 g subQ q7days immune globulin subcutaneous (immune globulin 20% subcutaneous solution) 10 g subQ q7days prefilled syringes lamoTRIgine (lamoTRIgine 150 mg oral tablet) 1 tab PO bid lidocaine-prilocaine topical (Emla 2.5%-2.5% topical cream) 1 appl topical ONCE 15-20 minutes prior to immunoglobulin infusion metoprolol (Metoprolol Succinate ER 25 mg oral tablet, extended release) 2 tab PO Daily multivitamin (B-Plex (Vitamin B Complex) oral tablet) 1 tab PO Daily nitroglycerin (Nitro-Bid 2% transdermal ointment) 1 inch topical tid PRN: See Order Comments for Raynaud's norethindrone (norethindrone 5 mg oral tablet) 5 mg PO Daily onabotulinumtoxinA (Botox.) under both under arms q 6 months pancrelipase (Creon 36,000 units oral delayed release capsule) take 2 capsules by mouth four times a day (TAKE 2 CAPSULES WITH EACH MEAL AND 1 CAPSULE WITH EACH SNACK) traZODone (traZODone 50 mg oral tablet) 25 mg PO qhs tretinoin topical (Avita 0.025% topical cream) 1 appl topical qhs PRN Allergies and Sensitivities: Mucinex(Angioedema and/or urticaria) Mucinex(Wheezing symptom) Percocet(seizure) Cipro(Confusion) adhesive tape(Blister) adhesive tape(Itching) adhesive tape(Rash) soy(nausea, upset stomach) milk products(Diarrhea) milk products(Intolerance to lactose) Latex(???) Glutens(intolerance) Drysol(Rash) Cyproheptadine Hydrochloride(leg cramps) Augmentin(hearing loss) Past Medical History: Problems: GERD (gastroesophageal reflux disease) LARRY (generalized anxiety disorder) Depression Attention deficit hyperactivity disorder (ADHD) Allergy to adhesive Foot drop Abdominal muscle pain Right radial head fracture Exocrine pancreatic insufficiency Post-inflammatory hyperpigmentation Allergy status to other drugs, medicaments and biological substances Dysphagia Knee pain Nexplanon in place Celiac disease Rivas syndrome Chronic allergic rhinitis Irritable bowel syndrome with diarrhea Back pain, chronic CVID (common variable immunodeficiency) Pectus excavatum Headache Hyperhidrosis Carnitine deficiency Weight loss Dysmenorrhea Manley muscular dystrophy Kyphosis 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 Orthostatic: Last Updated 09/22/23 13:17 Date Lying 5 Min BP Lying 5 Min HR Standing 1 Min BP Standing 1 Min HR Standing 3 Min BP Standing 3 Min HR 09/22/23 115/69 106 116/77 129 96109 118 Orthostatic blood pressures are the last 3 documented. Height and Weight: Last Updated 10/03/24 15:28 Date BMI Wt(kg) Wt(lb) Method Ht(cm) (ft-in) Method 10/03/24 29.27 86.6 191 Standing Scale 172 5-7 Standing 10/01/24 29.83 86.2 190 Standing Scale 170 5-7 Standing 08/26/24 29.17 84.3 185 Standing Scale 170 5-7 Patient stated Heights and Weights are the last 3 documented. Physical Exam On physical exam blood pressure is 116/82 and her heart rate is about 80 bpm. Her oxygen saturations 95% on room air. Her weight is 86.6 kg and her BMI is 29.3. Her lungs are clear and her neck veins are not distended. Her cardiac exam is normal. Abdomen is soft and she has active bowel sounds. Extremities are warm and she has good radial pulses. There is no significant peripheral edema. Neurologically she is alert and oriented and has a grossly nonfocal exam. 30 Day Labs: 10/03/24 0743 IgG 1222 10/01/24 1152 WBC 10.76 H RBC 4.83 Hgb 14.6 Hct 44.3 H MCV 91.7 MCH 30.2 MCHC 33.0 RDW 12.2 Plts 402 H MPV 9.4 HbA1c 5.2 Estimated Average Glucose 103 Free T3 3.2 Free T4 1.15 TSH 3.41 Anti TPO 31 FSH 5.30 LH 18.40 I had thought that there was a plan for her to get an echocardiogram with her next appointment but that did not get scheduled with occurred at this point. Will try to get that done up in [place] when she goes back to school her next semester. She can have the echo done at our [place] office and avoid another trip down here just for that. Will get back to her on those results when they become available. I otherwise have not suggested any changes. I have no objections to her being on a beta-rizwana and perhaps in the long run it might be of some benefit. It certainly seems to have alleviated some of her symptoms of palpitations and faster heartbeats. There is some data to suggest that using an ARB may be beneficial in patients with muscular dystrophy. Perhaps will give that further consideration after we have the echo results. One of the concerns about using that medication would be its effect on blood pressure and that is already sometimes an issue for her. I will probably see her again in a year to or sooner if need be. She does have follow-up with other providers scheduled and planned. No other questions or concerns you might have about Alaina please not hesitate to give me a call. Immunizations Given and Recorded Vaccine Date Status [...] inject 1 milliliter subcutaneously Every Month, Pharmacy: [facility] #[id number] Start Date: 04/14/23 Status: Ordered atomoxetine 40 mg oral capsule Start: 08/06/24 11:05:00 AM EST, 1 cap, PO, qAM, Disp# 90 cap, Refills: 0, Pharmacy: [facility] [id number] Start Date: 08/06/24 Status: Ordered Avita 0.025% [...] for auras/seizures, PRN: seizures, Pharmacy: [facility] #[id number] Start Date: 06/09/22 Status: Ordered Creon 36,000 units oral delayed release capsule Start: 09/09/22 9:15:00 AM EST, See Instructions, Disp# 240 cap, Refills: 11, take 2 capsules by mouth four times a day (TAKE 2 CAPSULES WITH EACH MEAL AND 1 CAPSULE WITH EACH SNACK), [facility][id number] Start Date: 09/09/22 Status: Ordered DULoxetine 60 mg oral delayed release capsule Start: 08/06/24 11:05:00 AM EST, 1 cap, PO, Daily, Disp# 90 cap, Refills: 0, Pharmacy: [facility] [id number] Start Date: 08/06/24 Status: Ordered Emla 2.5%-2.5% topical cream Start: 12/27/19 5:30:00 PM EDT, 1 appl, topical, ONCE, Disp# 30 g, Refills: 3, 15-20 minutes prior to immunoglobulin infusion Start Date: 12/27/19 Status: Ordered EPINEPHrine 0.3 mg injectable kit Start: 12/15/23 11:11:00 AM EDT, 0.3 mg =, IM, ONCE, Disp# 1 kit, Refills: 1, PRN: as needed for anaphylaxis, Pharmacy: [facility] #[id number] Start Date: 12/15/23 Status: Ordered famotidine 20 mg oral tablet Start: 09/30/24 12:09:00 PM EST, 1 tab, PO, bid, Disp# 180 tab, Refills: 3, Pharmacy: [facility] [id number] Start Date: 09/30/24 Status: Ordered ferrous sulfate [...] Daily, Disp# 90 tab, Refills: 3, [facility]acy: [facility] #[id number] Start Date: 11/06/23 Status: Ordered folic acid 1 mg oral tablet Start: 08/09/19 12:25:00 PM EST, 1 tab, PO, Daily, Disp# 90 tab, Refills: 3, other Start Date: 08/09/19 Stop Date: 08/03/20 Status: Ordered glycopyrrolate 1 mg oral tablet Start: 06/25/24 11:12:00 AM EDT, 1 tab, PO, bid, Disp# 60 tab, Refills: 0, Pharmacy: [facility]/pharmacy #[id number] Start Date: 06/25/24 Status: Ordered immune globulin 20% subcutaneous solution Start: 04/13/23 11:41:00 AM EDT, 10 g =, subQ, q7days, Disp# 40 g, prefilled syringes, other Start Date: 04/13/23 Status: Ordered lamoTRIgine 150 mg oral tablet Start: 08/06/24 3:07:00 PM EST, 1 tab, PO, bid, Disp# 180 tab, Refills: 2, Pharmacy: [id number] Start Date: 08/06/24 Status: Ordered Lotrisone 1%-0.05% topical cream Start: 05/18/23 2:19:00 PM EDT, 1 appl, topical, bid, Disp# 15 g, Refills: 0, Apply to the skin up to twice daily for 7days as needed for itching, Pharmacy: [facility] #[id number] Start Date: 05/18/23 Stop Date: 05/25/23 Status: Ordered Metoprolol Succinate ER 25 mg oral tablet, extended release Start: 08/08/24 10:29:00 AM EST, 2 tab, PO, Daily, Disp# 180 tab, Refills: 2, Pharmacy: [id number] Start Date: 08/08/24 Status: Ordered Nitro-Bid 2% transdermal ointment Start: 12/10/18 4:45:00 PM EDT, 1 inch, topical, tid, for Raynaud's, PRN: See Order Comments Start Date: 12/10/18 Status: Ordered norethindrone 5 mg oral tablet Start: 02/15/24 5:15:00 PM EDT, 1 tab, PO, Daily, Disp# 90 tab, Refills: 0, Pharmacy: [facility]/pharmacy #[id number] Start Date: 02/15/24 Status: Ordered traZODone 50 mg oral tablet Start: 09/05/23 2:06:00 PM EST, 0.5 tab, PO, qhs, Disp# 45 tab, Refills: 0, Pharmacy: [facility] Start Date: 09/05/23 Status: Ordered Xembify 20% subcutaneous solution Start: 08/26/24 5:45:00 PM EST, 10 g =, subQ, q7days, Disp# 40 g, other Start Date: 08/26/24 Status: Ordered ZyrTEC 10 mg oral tablet Start: 07/02/24 11:51:00 AM EDT, 1 tab, PO, bid, Disp# 60 tab, Refills: 0, PRN: as needed for allergy symptoms, Pharmacy: [facility]/pharmacy #[id number] Start Date: 07/02/24 Stop Date: 08/01/24 Status: Ordered Mental Status 10/03/24 Barriers to Learning one year Cognitive deficit, Vision impairment Mandatory Health Literacy Documentation Yes Health Literacy Communication Barriers U nable to assess Primary Language Bolivian Problem List Condition Confirmation Course Effective Dates [...] mass index [BMI] 29.0-29.9, adult Discharge Diagnosis 10/03/24 Non-Specified Manley muscular dystrophy Discharge Diagnosis 01/21/24 Procedures Procedure Date Related Diagnosis Body Site [...] recent to oldest [Reference Range]: 1 Height 172 cm (10/03/24 3:28 PM) Patient Weight 86.6 kg (10/03/24 3:28 PM) Body Mass Index 29.27 kg/m2 (10/03/24 3:28 PM) Temperature [36.5-37.9 DegC] 36.7 DegC (10/03/24 3:28 PM) Heart Rate 82 bpm (10/03/24 3:28 PM) Respiratory Rate 18 br/min (10/03/24 3:28 PM) Blood Pressure 116/84mmHg (10/03/24 3:28 PM) BP Location # 1 Right Arm, Manual (10/03/24 3:28 PM) Social History Social History Type Response [...] Active U nknown 1left inner upper arm Cardiology Outpatient Note * MD Janna, Vamsi D: PERFORM Event Display: Cardiology Outpt Note Authored Date: [id number] CARDIOLOGY OUTPATIENT NOTE Name: ALAINA BRYAN Patient Number: [id number] : 2000 Date of Service: 10/03/2024 Alaina Bryan was seen in the cardiology office again today for follow-up in regards to her diagnosis of muscular dystrophy and family history of cardiomyopathy and muscular dystrophy. She has been feeling okay from a cardiac standpoint and is not reporting any change in symptoms to a great degree. She does report being started on a beta-rizwana since I last saw her almost 2 years ago and that is cut down on some of the palpitations that she has had. She perceives her heart rate is being slower and more steady and she does not have episodes of tachycardia as frequently. She is not reporting shortness of breath or fluid retention. She has not had any emergency room visits or urgent care assessments. I do not think there have been any unscheduled appointments to other providers. Emotional Assessment (PHQ-2) (Data Documented on:10/01/2024 10:53) [place] down or depressed over last 2 weeks? 1 - Several Days Little interest in doing things? 0 - Not at All PHQ-2 Score: 1 - Emotional health assessment NEGATIVE Current Home Meds: (Last Updated 10/03 15:27) DULoxetine (DULoxetine 60 mg oral delayed release capsule) 1 cap PO Daily EPINEPHrine (EPINEPHrine 0.3 mg injectable kit) 0.3 mg IM ONCE PRN: as needed for anaphylaxis atomoxetine (atomoxetine 40 mg oral capsule) 1 cap PO qAM betamethasone-clotrimazole topical (Lotrisone 1%-0.05% topical cream) 1 appl topical bid Apply to the skin up to twice daily for 7days as needed for itching cetirizine (ZyrTEC 10 mg oral tablet) 10 mg PO bid PRN: as needed for allergy symptoms clonazePAM (clonazePAM 1 mg oral tablet, disintegrating) PRN: seizures 1 to 2 tab as needed for auras/seizures erenumab (Aimovig SureClick Autoinjector 140 mg/mL subcutaneous solution) inject 1 milliliter subcutaneously Every Month famotidine (famotidine 20 mg oral tablet) 1 tab PO bid ferrous sulfate (ferrous sulfate 325 mg (65 mg elemental iron) oral delayed release tablet) 325 mg PO Daily fludrocortisone (Florinef Acetate 0.1 mg oral tablet) 0.1 mg PO Daily fluticasone nasal (Flonase 50 mcg/inh nasal spray) 2 spray intranasal Daily folic acid (folic acid 1 mg oral tablet) 1 mg PO Daily glycopyrrolate (glycopyrrolate 1 mg oral tablet) 1 mg PO bid immune globulin subcutaneous (Xembify 20% subcutaneous solution) 10 g subQ q7days immune globulin subcutaneous (immune globulin 20% subcutaneous solution) 10 g subQ q7days prefilledsyringes lamoTRIgine (lamoTRIgine 150 mg oral tablet) 1 tab PO bid lidocaine-prilocaine topical (Emla 2.5%-2.5% topical cream) 1 appl topical ONCE 15-20 minutes priorto immunoglobulin infusion metoprolol (Metoprolol Succinate ER 25 mg oral tablet, extended release) 2 tab PO Daily multivitamin (B-Plex (Vitamin B Complex) oral tablet) 1 tab PO Daily nitroglycerin (Nitro-Bid 2% transdermal ointment) 1 inch topical tid PRN: See Order Comments for Raynaud's norethindrone (norethindrone 5 mg oral tablet) 5 mg PO Daily onabotulinumtoxinA (Botox.) under both under arms q 6 months pancrelipase (Creon 36,000 units oral delayed release capsule) take 2 capsules by mouth four times a day (TAKE 2 CAPSULES WITH EACH MEAL AND 1 CAPSULE WITH EACH SNACK) traZODone (traZODone 50 mg oral tablet) 25 mg PO qhs tretinoin topical (Avita 0.025% topical cream) 1 appl topical qhs PRN Allergies and Sensitivities: Mucinex(Angioedema and/or urticaria) Mucinex(Wheezing symptom) Percocet(seizure) Cipro(Confusion) adhesive tape(Blister) adhesive tape(Itching) adhesive tape(Rash) soy(nausea, upset stomach) milk products(Diarrhea) milk products(Intolerance to lactose) Latex(???) Glutens(intolerance) Drysol(Rash) Cyproheptadine Hydrochloride(leg cramps) Augmentin(hearing loss) Past Medical History: Problems: GERD (gastroesophageal reflux disease) LARRY (generalized anxiety disorder) Depression Attention deficit hyperactivity disorder (ADHD) Allergy to adhesive Foot drop Abdominal muscle pain Right radial head fracture Exocrine pancreatic insufficiency Post-inflammatory hyperpigmentation Allergy status to other drugs, medicaments and biological substances Dysphagia Knee pain Nexplanon in place Celiac disease Rivas syndrome Chronic allergic rhinitis Irritable bowel syndrome with diarrhea Back pain, chronic CVID (common variable immunodeficiency) Pectus excavatum Headache Hyperhidrosis Carnitine deficiency Weight loss Dysmenorrhea Manley muscular dystrophy Kyphosis 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 Orthostatic: Last Updated 09/22/23 13:17 Date Lying 5 Min BP Lying 5 Min HR Standing 1 Min BP Standing 1 Min HR Standing 3 Min BP Standing 3 Min HR 09/22/23 115/69 106 116/77 129 45974 118 Orthostatic blood pressures are the last 3 documented. Height and Weight: Last Updated 10/03/24 15:28 Date BMI Wt(kg) Wt(lb) Method Ht(cm) (ft-in) Method 10/03/24 29.27 86.6 191 Standing Scale 172 5-7 Standing 10/01/24 29.83 86.2 190 Standing Scale 170 5-7 Standing 08/26/24 29.17 84.3 185 Standing Scale 170 5-7 Patient stated Heights and Weights are the last 3 documented. Physical Exam On physical exam blood pressure is 116/82 and her heart rate is about 80 bpm. Her oxygen saturations 95% on room air. Her weight is 86.6 kg and her BMI is 29.3. Her lungs are clear and her neck veinsare not distended. Her cardiac exam is normal. Abdomen is soft and she has active bowel sounds. Extremities are warm and she has good radial pulses. There is no significant peripheral edema. Neurologically she is alert and oriented and has a grossly nonfocal exam. 30 Day Labs: 10/03/24 0743 IgG 1222 10/01/24 1152 WBC 10.76 H RBC 4.83 Hgb 14.6 Hct 44.3 H MCV 91.7 MCH 30.2 MCHC 33.0 RDW 12.2 Plts 402 H MPV 9.4 HbA1c 5.2 Estimated Average Glucose 103 Free T3 3.2 Free T4 1.15 TSH 3.41 Anti TPO 31 FSH 5.30 LH 18.40 I had thought that there was a plan for her to get an echocardiogram with her next appointment but that did not get scheduled with occurred at this point. Will try to get that done up in [place] when she goes back to school her next semester. She can have the echo done at our [place] office and avoid another trip down here just for that. Will get back to her on those results when theybecome available. I otherwise have not suggested any changes. I have no objections to her being on a beta-rizwana andperhaps in the long run it might be of some benefit. It certainly seems to have alleviated some of her symptoms of palpitations and faster heartbeats. There is some data to suggest that using an ARB may be beneficial in patients with muscular dystrophy. Perhaps will give that further consideration after we have the echo results. One of the concerns about using that medication would be its effect on blood pressure and that is already sometimes an issue for her. I will probably see her again in a year to or sooner if need be. She does have follow-up with otherproviders scheduled and planned. No other questions or concerns you might have about Alaina please not hesitate to give me a call. Electronic Signature on File CC: Luanne Sawyer, [address] [place] [id number] CC: HARESH Arisa [address] [facility] [address] [place] [id number] Electronically Reviewed/Signed by: Vamsi Saldivar MD Author Signature Dt/Tm:10/03/2024 04:11 PM [facility] [address] [facility] [place], [facility] [facility], [address], [place] [address] EDP Patient Care team information Care Team Personnel Name: MD Juan, Obie Brice Position: Provider - Terminated Member Role: Lifetime Relationship Address: [address] [facility] [place] [address] [place] [address] [place] Name: Hasmukh, PhD, Ignacia Dumont Position: Physician - Sleep Medicine Member Role: Lifetime Relationship Address: [address] [place] [address] [address] [place] [address] [place] Name: MD Sherif, Dillon Cano Position: Physician - Family Med Member Role: Lifetime Relationship Address: [address] [place] [address] [place] Name: MD Eliot, Ravi Barahona Position: Referring Member Role: Lifetime Relationship Address: [facility], [address] [place] [address] [place] Name: HARESH Elizabeth Hillarie B Position: Nurse Practitioner - Psychotherapy Member Role: Lifetime Relationship [facility] [address] [facility] [address] [place] Name: DO Sawyer Helen M Position: Resident Member Role: Primary Care Provider Address: [address] [facility] [place] [address] Care Team Related Persons Name: MEAGAN BRYAN Name: TRAVIS BRYAN Name: TRAVIS BRYAN
--- OUTSIDE RECORDS SUMMARY | 2024-11-16 16:53 | External Medical Summary | Continuity of Care Document ---
Author Name Unknown Organization [facility] [address] Address [address] [place], [place] [id number] Encounter [facility] FINNBR [id number] Date(s): 08/01/24 - 08/01/24 [facility] [address] [facility] [address] [facility] [address] [place], [place] [phone] Encounter Diagnosis Celiac disease(Final) - Discharge Disposition: Home or Self Care Attending Physician: MD Harmon Debra Q Referring Physician: MD Harmon Debra Q Allergies, Adverse Reactions, Alerts Substance Criticality Severity [...] inject 1 milliliter subcutaneously Every Month, [facility]acy: [facility] #[id number] Start Date: 04/14/23 Status: Ordered atomoxetine 40 mg oral capsule Start: 04/22/24 11:47:00 AM EDT, 1 cap, PO, qAM, Disp# 90 cap, Refills: 0, Pharmacy: [facility]/pharmacy #[id number] Start Date: 04/22/24 Status: Ordered Avita 0.025% [...] as needed for auras/seizures, PRN: seizures, [facility]acy: [facility] #[id number] Start Date: 06/09/22 Status: Ordered Creon 36,000 units oral delayed release capsule Start: 09/09/22 9:15:00 AM EST, See Instructions, Disp# 240 cap, Refills: 11, take 2 capsules by mouth four times a day (TAKE 2 CAPSULES WITH EACH MEAL AND 1 CAPSULE WITH EACH SNACK), Pharmacy: [facility] #[id number] Start Date: 09/09/22 Status: Ordered Cymbalta 60 mg oral delayed release capsule Start: 04/22/24 11:48:00 AM EDT, 1 cap, PO, Daily, Disp# 90 cap, Refills: 0, Pharmacy: [facility]/pharmacy #[id number] Start Date: 04/22/24 Stop Date: [...] 1, PRN: as needed for anaphylaxis, Pharmacy: [facility] #[id number] Start Date: 12/15/23 Status: Ordered famotidine 20 mg oral tablet Start: 07/02/24 11:50:00 AM EDT, 1 tab, PO, bid, Disp# 180 tab, Refills: 0, Pharmacy: [facility]/pharmacy #[id number] Start Date: 07/02/24 Stop Date: [...] Daily, Disp# 90 tab, Refills: 3, Pharmacy: [facility] #[id number] Start Date: 11/06/23 Status: Ordered folic acid 1 mg oral tablet Start: 08/09/19 12:25:00 PM EST, 1 tab, PO, Daily, Disp# 90 tab, Refills: 3, other Start Date: 08/09/19 Stop Date: 08/03/20 Status: Ordered glycopyrrolate 1 mg oral tablet Start: 06/25/24 11:12:00 AM EDT, 1 tab, PO, bid, Disp# 60 tab, Refills: 0, Pharmacy: [facility]/pharmacy #[id number] Start Date: 06/25/24 Status: Ordered immune globulin 20% subcutaneous solution Start: 04/13/23 11:41:00 AM EDT, 10 g =, subQ, q7days, Disp# 40 g, prefilled syringes, other Start Date: 04/13/23 Status: Ordered lamoTRIgine 150 mg oral tablet Start: 08/01/23 1:11:00 PM EDT, 1 tab, PO, bid, Disp# 60 tab, Refills: 11, Pharmacy: [facility] Start Date: 08/01/23 Status: Ordered Lotrisone 1%-0.05% topical cream Start: 05/18/23 2:19:00 PM EDT, 1 appl, topical, bid, Disp# 15 g, Refills: 0, Apply to the skin up to twice daily for 7days as needed for itching, [id number] Start Date: 05/18/23 Stop Date: 05/25/23 Status: Ordered metoprolol succinate 25 mg oral tablet, extended release Start: 10/30/23 12:57:00 PM EST, 2 tab, PO, Daily, Disp# 180 tab, Refills: 3, take 1/2 tab for 1 week then 1 tab for 1 week, then 1 1/2 tabs for 1 week then 2 tabs daily, Pharmacy: [facility] Start Date: 10/30/23 Status: Ordered Nitro-Bid 2% transdermal ointment Start: 12/10/18 4:45:00 PM EDT, 1 inch, topical, tid, for Raynaud's, PRN: See Order Comments Start Date: 12/10/18 Status: Ordered norethindrone 5 mg oral tablet Start: 02/15/24 5:15:00 PM EDT, 1 tab, PO, Daily, Disp# 90 tab, Refills: 0, Pharmacy: [facility]/pharmacy #[id number] Start Date: 02/15/24 Status: Ordered traZODone 50 mg oral tablet Start: 09/05/23 2:06:00 PM EST, 0.5 tab, PO, qhs, Disp# 45 tab, Refills: 0, Pharmacy: [facility] Start Date: 09/05/23 Status: Ordered ZyrTEC 10 mg oral tablet Start: 07/02/24 11:51:00 AM EDT, 1 tab, PO, bid, Disp# 60 tab, Refills: 0, PRN: as needed for allergy symptoms, Pharmacy: [facility]/pharmacy #[id number] Start Date: 07/02/24 Stop Date: [...] 21 2021 Results Laboratory List Name Date Complete Blood Count (CBC) 08/01/24 Comprehensive Metabolic Panel (COMP META B PANEL) 08/01/24 Tissue Transglutaminase IgA Ab (TIS SWANN SGLUTAM IGA) 08/01/24 Vitamin D, 25-Hydroxy Level, Total (25-H YDROXY VITAMIN D) 08/01/24 Most recent to oldest [Reference Range]: 1 eGFR CKD-EPI [>60 mL/min/1.73 m2] >90 mL /min/1.73 m2 1 (08/01/24 10:01 AM) Vitamin D, 25-Hydroxy [30-100 ng/mL] 23 ng/mL 2 *LOW* (08/01/24 10: AM) Estimated CrCl 106.53 mL/min (08/01/24 10:46 AM) MPV [9.0-12.2 fL] 10.1 fL (08/01/24 10: AM) RDW [11.5-14.2 %] 12.1 % (08/01/24 10: AM) Anion Gap [5-14 mmol/L] 12 mmol/L (08/01/24 10: AM) Alb [3.5-5.0 g/dL] 4.4 g/dL (08/01/24 10:01 AM) Alk Phos [38-126 unit/L] 90 unit/L (08/01/24 10:01 AM) ALT [<35 unit/L] 24 unit/L (08/01/24 10: AM) AST [15-46 unit/L] 29 unit/L (08/01/24 10:01 AM) BUN [7-20 mg/dL] 15 mg/dL (08/01/24 10: AM) Ca [8.4-10.2 mg/dL] 9.4 mg/dL (08/01/24 10:01 AM) Cl- [96-107 mmol/L] 105 mmol/L (08/01/24 10:01 AM) HCO3 [22-30 mmol/L] 22 mmol/L (08/01/24 10: AM) Cret [0.60-1.00 mg/dL] 0.86 mg/dL (08/01/24 10:01 AM) Glu [74-106 mg/dL] 122 mg/dL *HI* (08/01/24 10: AM) Hct [35-44 %] 40.9 % (08/01/24 10: AM) Hgb [11.7-15.0 g/dL] 13.4 g/dL (08/01/24 10: AM) K [3.5-5.1 mmol/L] 3.9 mmol/L (08/01/24 10: AM) MCH [28-33 pg] 30.2 pg (08/01/24 10: AM) MCHC [32-36 g/dL] 32.8 g/dL (08/01/24 10: AM) MCV [81-96 fL] 92.3 fL (08/01/24 10: AM) Na [137-145 mmol/L] 139 mmol/L (08/01/24 10: AM) Plts [150-350 K/uL] 431 K/uL *HI* (08/01/24 10: AM) RBC [3.90-5.00 M/uL] 4.43 M/uL (08/01/24 10: AM) T Bili [0.2-1.3 mg/dL] 0.4 mg/dL (08/01/24 10: AM) Prot [6.3-8.2 g/dL] 8.2 g/dL (08/01/24 10: AM) WBC [4.0-10.4 K/uL] 11.73 K/uL *HI* (08/01/24 10: AM) tTG-IgA Ab <1.02 3 *Unknown* (08/01/24 10: AM) 1Result Comment: Testing Performed By: Dept of Pathology [facility] [address], [address], [place] [address] 2Result Comment: Deficiency: <20 ng/mL Insufficiency: 21-29 ng/mL Sufficiency: 30-100 ng/mL Potenial Toxicity: >150 ng/mL 3Result Comment: Reference range: 0.00 to 4.99 Unit: FLU INTERPRETIVE INFORMATION: Tissue Transglutaminase (tTG) Antibody, IgA Presence of the tissue transglutaminase (tTG) IgA antibody is associated with gluten-sensitive enteropathies such as celiac disease and dermatitis herpetiformis. Individuals with positive results should be confirmed with small intestinal biopsy to establish celiac disease diagnosis. tTG IgA antibody concentrations greater than 50 FLU exhibits higher correlation with results of duodenal biopsies consistent with celiac disease. For antibody concentrations greater than or equal to 5 FLU but less than 10 FLU, additional testing for endomysial (OMAR) IgA concentrations may improve the positive predictive value for disease. A decrease in tTG IgA antibody concentration after initiation of a gluten-free diet may indicate a response to therapy. Performed By: [facility] [address] [place] [id number] Veterinary Epidemiologist: Nolberto Herrera MD, PhD CLIA Number: [id number] Social History Social History Type Response Tobacco [...] Member Role: Lifetime Relationship Address: [address] [facility] [place] [address] [place] Name: Hasmukh, , Ignacia Dumont Position: Physician - Sleep Medicine Member Role: Lifetime Relationship Address: [address] [place] [address] [place] [address] [place] Name: MD Gorman John J Position: Physician - Family Med Member Role: Lifetime Relationship Address: [address] [place] [address] [place] Name: MD Eliot, Ravi Barahona Position: Referring Member Role: Lifetime Relationship Address: [facility], [facility] [address] [place] [address] [address] [place] [address] [place] Name: HARESH Elizabeth Hillarie B Position: Nurse Practitioner - Psychotherapy Member Role: Lifetime Relationship Address: [address] [place] [address] [place] Care Team Related Persons Name: MEAGAN BRYAN Name: TRAVIS BRYAN Name: TRAVIS BRYAN
--- OUTSIDE RECORDS SUMMARY | 2024-11-16 16:53 | External Medical Summary | Continuity of Care Document ---
Author Name Unknown Organization [facility] [address] [id number] [facility] [id number] Date(s): 07/02/24 - 07/02/24 [facility] [address] [facility] [address] [id number] Encounter Diagnosis Itching(Discharge Diagnosis) - 07/02/24 Flushing(Discharge Diagnosis) - 07/02/24 Discharge Disposition: Home or Self Care Attending Physician: MD Elie, Nicolasa Escalante Allergies, Adverse Reactions, Alerts Substance Criticality Severity [...] urticaria Active Assessment and Plan Extracted from: Title:TeleHealth Visit Note Author:MD Elie, Fawn Escalante Date:07/02/24 1.Itching Evening itchiness and flushing? Allergic reaction No trigger identified Advised to increase famotidine to 20 mg twice daily Advised to increase Zyrtec 10 mg twice daily Advised to call her allergy/immunologistto see if she needs further workup She has an appointment with PCP to establishon June 16. 2.Flushing As noted above Keep the appointment PCP on June 16to establish care and follow-up on this. Immunizations Given and Recorded Vaccine Date Status [...] inject 1 milliliter subcutaneously Every Month, Pharmacy: [facility] #[id number] Start Date: 04/14/23 Status: Ordered atomoxetine 40 mg oral capsule Start: 04/22/24 11:47:00 AM EDT, 1 cap, PO, qAM, Disp# 90 cap, Refills: 0, Pharmacy: [facility]/pharmacy #[id number] Start Date: 04/22/24 Status: Ordered Avita [...] as needed for auras/seizures, PRN: seizures, [facility][id number] Start Date: 06/09/22 Status: Ordered Creon 36,000 units oral delayed release capsule Start: 09/09/22 9:15:00 AM EST, See Instructions, Disp# 240 cap, Refills: 11, take 2 capsules by mouth four times a day (TAKE 2 CAPSULES WITH EACH MEAL AND 1 CAPSULE WITH EACH SNACK), [facility] #[id number] Start Date: 09/09/22 Status: Ordered Cymbalta 60 mg oral delayed release capsule Start: 04/22/24 11:48:00 AM EDT, 1 cap, PO, Daily, Disp# 90 cap, Refills: 0, Pharmacy: [facility]/pharmacy #[id number] Start Date: 04/22/24 Stop Date: 07/21/24 [...] 1, PRN: as needed for anaphylaxis, Pharmacy: [facility] #[id number] Start Date: 12/15/23 Status: Ordered famotidine 20 mg oral tablet Start: 07/02/24 11:50:00 AM EDT, 1 tab, PO, bid, Disp# 180 tab, Refills: 0, Pharmacy: [facility]/pharmacy #[id number] Start Date: 07/02/24 Stop Date: 09/30/24 [...] Daily, Disp# 90 tab, Refills: 3, Pharmacy: [facility] #[id number] Start Date: 11/06/23 Status: Ordered folic acid 1 mg oral tablet Start: 08/09/19 12:25:00 PM EST, 1 tab, PO, Daily, Disp# 90 tab, Refills: 3, other Start Date: 08/09/19 Stop Date: 08/03/20 Status: Ordered glycopyrrolate 1 mg oral tablet Start: 06/25/24 11:12:00 AM EDT, 1 tab, PO, bid, Disp# 60 tab, Refills: 0, Pharmacy: [facility]/pharmacy #[id number] Start Date: 06/25/24 Status: Ordered immune globulin 20% subcutaneous solution Start: 04/13/23 11:41:00 AM EDT, 10 g =, subQ, q7days, Disp# 40 g, prefilled syringes, other Start Date: 04/13/23 Status: Ordered lamoTRIgine 150 mg oral tablet Start: 08/01/23 1:11:00 PM EDT, 1 tab, PO, bid, Disp# 60 tab, Refills: 11, Pharmacy: [facility] Start Date: 08/01/23 Status: Ordered Lotrisone 1%-0.05% topical cream Start: 05/18/23 2:19:00 PM EDT, 1 appl, topical, bid, Disp# 15 g, Refills: 0, Apply to the skin up to twice daily for 7days as needed for itching, Pharmacy: [facility] #[id number] Start Date: 05/18/23 Stop Date: 05/25/23 Status: Ordered metoprolol succinate 25 mg oral tablet, extended release Start: 10/30/23 12:57:00 PM EST, 2 tab, PO, Daily, Disp# 180 tab, Refills: 3, take 1/2 tab for 1 week then 1 tab for 1 week, then 1 1/2 tabs for 1 week then 2 tabs daily, Pharmacy: [facility] Start Date: 10/30/23 Status: Ordered Nitro-Bid 2% transdermal ointment Start: 12/10/18 4:45:00 PM EDT, 1 inch, topical, tid, for Raynaud's, PRN: See Order Comments Start Date: 12/10/18 Status: Ordered norethindrone 5 mg oral tablet Start: 02/15/24 5:15:00 PM EDT, 1 tab, PO, Daily, Disp# 90 tab, Refills: 0, Pharmacy: [facility]/pharmacy #[id number] Start Date: 02/15/24 Status: Ordered traZODone 50 mg oral tablet Start: 09/05/23 2:06:00 PM EST, 0.5 tab, PO, qhs, Disp# 45 tab, Refills: 0, Pharmacy: [facility] Start Date: 09/05/23 Status: Ordered ZyrTEC 10 mg oral tablet Start: 07/02/24 11:51:00 AM EDT, 1 tab, PO, bid, Disp# 60 tab, Refills: 0, PRN: as needed for allergy symptoms, Pharmacy: [facility]/pharmacy #[id number] Start Date: 07/02/24 Stop Date: 08/01/24 [...] Diagnosis Diagnosis Type Effective Dates Health Status Clini josie Service Informant Flushing Discharge Diagnosis 07/02/24 Non-Specified Itching Discharge Diagnosis 07/02/24 Non-Specified Procedures Procedure Date Related Diagnosis Body [...] upper arm Medicine Outpt Note * MD Elie, Nicolasa Escalante: PERFORM Event Display: Medicine Outpt Note Authored Date: TeleHealth Visit Note I have confirmed the patients name and date of . The patient has consented to this service,and I have advised the patient that this is a billable visit for which they may be subject to a copay. The patient initiated this visit after they were informed of the availability of TeleHealth for this medically necessary visit. I am located at home. The patient is located at home. This visit was conducted via live audio/video technology via [employer]. 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 As noted below in the message. Complain of generalized itchinessin the evening starting from 4PM to 9 PM Also complaining offace flushingandit is painful This has been going on for a month also complaining of sometightness in throat but no shortness of breath Stated that happens every single night Facial flushing is also noted by her friends when she is outwith them in the evening She took a shower last night hoping that will help as she thought, this could be an allergen contributing to hersymptoms however did not see any difference Benadryl helps, but stated that she cant be taking it every day. Denies any change inclothing, bedding, medications She is allergic to Mucinex cannot it,had to use an EpiPen for that Followed regularly by Dr. Torrez, train operations manager for her CVID and has discussed her symptoms with him She has multiple allergies toenvironmental triggers Therefore she is scared to touch anythingfearing that will trigger allergic reaction She is currently in [place] This usually happens in the evening when the urgent cares are closed, she does not feel like she needs to go to ER for this. care message tching and burning all over her face. Denies SOB or difficulty swallowing secretions. Pt. took benadryl last night, which helped her symptoms. pt. was advised to go to the ER but she declined to go. Protocol Used: Hives Protocol-Based Disposition: See in Office Today Positive Triage Question: * Patient wants to be seen * All higher-acuity triage questions were negative [1] Review of Systems Deniesany shortness of breath or trouble breathing Physical Exam At home not in acute distress Assessment/Plan 1.Itching Evening itchiness and flushing? Allergic reaction No trigger identified Advised to increase famotidine to 20 mg twice daily Advised to increase Zyrtec 10 mg twice daily Advised to call her allergy/immunologistto see if she needs further workup She has an appointment with PCP to establishon June 16. 2.Flushing As noted above Keep the appointment PCP on June 16to establish care and follow-up on this. Problem List/Past Medical History Ongoing Abdominal muscle [...] and steroid| Service Date: 02/14/2023Injection| Service Date: 3Procedure| Service Date: 10/12/2022Injection| Service Date: 08/30/2022Injection| Service [...] due03/31/24and every 1year Due Adult COVID-19 Vaccination due07/02/24Unknown Frequency Adult Folic Acid Supplementation due07/02/24and every 3year Adult Social Determinants of Health Screening due07/02/24Unknown Frequency Pneumococcal Vaccine Adults and Adolescents with Chronic Illness due07/02/24One-time only Shingles Vaccine due07/02/24One-time only Due In Future Body Mass Index not due until04/18/25and every 366day Satisfied(in the past 1 year) Satisfied Body Mass Index on03/29/24.Satisfied by Dagoberto Cardenas [1]AFTER HOURS; ANDRAE Meyer Ashley 07/02/2024 08:54 EDT Electronic Signature on File CC: Luannebebeto Sawyer, DO [address] [facility] [id number] Electronically Reviewed/Signed by: Nicolasa Delgadillo MD Author Signature Dt/Tm:07/02/2024 12:33 PM Division of Internal Medicine [facility] Patient Care team information Care Team Personnel Name: MD Juan, Obie Brice Position: Physician - Ped Echo Member Role: Lifetime Relationship Address: [address] [place] [address] [place] Name: Hasmukh, PhD, Ignacia Dumont Position: Physician - Sleep Medicine Member Role: Lifetime Relationship Address: [address] [place] [address] [place] [address] [place] Name: MD Gorman John J Position: Physician - Family Med Member Role: Lifetime Relationship Address: [address] [place] [address] [place] Name: MD Mccabe Brent D Position: Referring Member Role: Lifetime Relationship Address: [facility], [facility] [address] [place] [address] [address] [place] [address] [place] Name: HARESH Elizabeth Hillarie B Position: Nurse Practitioner - Psychotherapy Member Role: Lifetime Relationship Address: [address] [place] [address] Care Team Related Persons Name: MEAGAN WATERMAN Name: TRAVIS WATERMAN Name: TRAVIS WATERMAN"
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
--- OUTSIDE RECORDS SUMMARY | 2024-11-16 16:53 | External Medical Summary | Continuity of Care Document ---
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 Role Phone Luanne Sawyer Primary Care Physician [phone] Encounter [facility] [id number] Date(s): 10/03/24 - 10/03/24 [facility] [address] [facility] Entrance A, [address] [place] [phone] Discharge Disposition: Home or Self Care Attending [...] milliliter subcutaneously Every Month, Pharmacy: [facility] #[id number] Start Date: 04/14/23 Status: Ordered atomoxetine 40 mg oral capsule Start: 08/06/24 11:05:00 AM EST, 1 cap, PO, qAM, Disp# 90 cap, Refills: 0, Pharmacy: [id number] Start Date: 08/06/24 Status: Ordered Avita 0.025% [...] for auras/seizures, PRN: seizures, Pharmacy: [facility] #[id number] Start Date: 06/09/22 Status: Ordered Creon 36,000 units oral delayed release capsule Start: 09/09/22 9:15:00 AM EST, See Instructions, Disp# 240 cap, Refills: 11, take 2 capsules by mouth four times a day (TAKE 2 CAPSULES WITH EACH MEAL AND 1 CAPSULE WITH EACH SNACK), Pharmacy: [facility] #[id number] Start Date: 09/09/22 Status: Ordered DULoxetine 60 mg oral delayed release capsule Start: 08/06/24 11:05:00 AM EST, 1 cap, PO, Daily, Disp# 90 cap, Refills: 0, Pharmacy: [facility] [id number] Start Date: 08/06/24 Status: Ordered Emla 2.5%-2.5% topical cream Start: 12/27/19 5:30:00 PM EDT, 1 appl, topical, ONCE, Disp# 30 g, Refills: 3, 15-20 minutes prior to immunoglobulin infusion Start Date: 12/27/19 Status: Ordered EPINEPHrine 0.3 mg injectable kit Start: 12/15/23 11:11:00 AM EDT, 0.3 mg =, IM, ONCE, Disp# 1 kit, Refills: 1, PRN: as needed for anaphylaxis, Pharmacy: [facility] #[id number] Start Date: 12/15/23 Status: Ordered famotidine 20 mg oral tablet Start: 09/30/24 12:09:00 PM EST, 1 tab, PO, bid, Disp# 180 tab, Refills: 3, Pharmacy: [id number] Start Date: 09/30/24 Status: Ordered ferrous sulfate [...] Daily, Disp# 90 tab, Refills: 3, Pharmacy: [facility] #[id number] Start Date: 11/06/23 Status: Ordered folic acid 1 mg oral tablet Start: 08/09/19 12:25:00 PM EST, 1 tab, PO, Daily, Disp# 90 tab, Refills: 3, other Start Date: 08/09/19 Stop Date: 08/03/20 Status: Ordered glycopyrrolate 1 mg oral tablet Start: 06/25/24 11:12:00 AM EDT, 1 tab, PO, bid, Disp# 60 tab, Refills: 0, Pharmacy: [facility]/pharmacy #[id number] Start Date: 06/25/24 Status: Ordered immune globulin 20% subcutaneous solution Start: 04/13/23 11:41:00 AM EDT, 10 g =, subQ, q7days, Disp# 40 g, prefilled syringes, other Start Date: 04/13/23 Status: Ordered lamoTRIgine 150 mg oral tablet Start: 08/06/24 3:07:00 PM EST, 1 tab, PO, bid, Disp# 180 tab, Refills: 2, Pharmacy: [id number] Start Date: 08/06/24 Status: Ordered Lotrisone 1%-0.05% topical cream Start: 05/18/23 2:19:00 PM EDT, 1 appl, topical, bid, Disp# 15 g, Refills: 0, Apply to the skin up to twice daily for 7days as needed for itching, Pharmacy: [facility] #[id number] Start Date: 05/18/23 Stop Date: 05/25/23 Status: Ordered Metoprolol Succinate ER 25 mg oral tablet, extended release Start: 08/08/24 10:29:00 AM EST, 2 tab, PO, Daily, Disp# 180 tab, Refills: 2, Pharmacy: [facility] [id number] Start Date: 08/08/24 Status: Ordered Nitro-Bid 2% transdermal ointment Start: 12/10/18 4:45:00 PM EDT, 1 inch, topical, tid, for Raynaud's, PRN: See Order Comments Start Date: 12/10/18 Status: Ordered norethindrone 5 mg oral tablet Start: 02/15/24 5:15:00 PM EDT, 1 tab, PO, Daily, Disp# 90 tab, Refills: 0, [id number] Start Date: 02/15/24 Status: Ordered traZODone 50 mg oral tablet Start: 09/05/23 2:06:00 PM EST, 0.5 tab, PO, qhs, Disp# 45 tab, Refills: 0, Pharmacy: [facility] Start Date: 09/05/23 Status: Ordered Xembify 20% subcutaneous solution Start: 08/26/24 5:45:00 PM EST, 10 g =, subQ, q7days, Disp# 40 g, other Start Date: 08/26/24 Status: Ordered ZyrTEC 10 mg oral tablet Start: 07/02/24 11:51:00 AM EDT, 1 tab, PO, bid, Disp# 60 tab, Refills: 0, PRN: as needed for allergy symptoms, Pharmacy: [facility] #[id number] Start Date: 07/02/24 Stop Date: 08/01/24 [...] Exam Date Time Procedure Performing Provider Status 10/03/24 8:09 AM US Abdomen Complete Ana Amador; Jacques krishnamurthy Notes: (US Abdomen Complete) Reason For Exam: Abdominal cramping; family hx of endometriosis, loss of appetite US Abdomen Complete EXAMINATION: US Abdomen Complete CLINICAL HISTORY: R63.5: Abnormal weight gain; R53.83: Other fatigue; R10.9: Unspecified abdominal pain; Abdominal cramping; family hx of endometriosis, loss of appetite COMPARISON: MR abdomen 07/05/2018 FINDINGS: PANCREAS: The visualized portion of the pancreas is unremarkable. LIVER: Normal size, contour, and echogenicity. No solid mass is seen. Length: 15.7 cm. GALLBLADDER AND BILE DUCTS: Bile ducts: No biliary dilation. Common bile duct: 3 mm. Gallbladder: Unremarkable. KIDNEYS: Normal in size, shape, and echogenicity. Renal cortical thickness is maintained. No hydronephrosis. Right kidney length: 10.7 cm. Left kidney length: 11.5 cm. Left kidney upper pole cyst poorly visualized on this examination, present on MR abdomen 07/05/2018. SPLEEN: Normal in size. Longest splenic length: 10.5 cm. AORTA/IVC: The IVC and aorta are normal in caliber where visualized. OTHER: No free fluid. IMPRESSION: Small cysts in the upper pole left kidney as seen on MR abdomen 07/05/2018. Otherwise unremarkable ultrasound examination of the abdomen. [place] Act 112: This study does not meet the requirements of [place] Act [address]. Dr. Yuval Kemp is the dictating resident. Finalized reports status indicates that the attending hasreviewed the images and report, and agrees with the interpretation. Preliminary report status should be regarded as NOT interpreted by the attending radiologist. Workstation ID: [id number] Final Dictated by:MD Kemp Owen Dictated DT/TM:10/03/2024 9:01 Resident:MD Kemp Owen Signed by:Jose M Fowler MD, Hussain Signed (Electronic Signature):10/03/2024 9:00 a Social History Social History Type Response [...] Member Role: Lifetime Relationship Address: [address] [place] [address] [place] [address] [place] Name: Hasmukh, PhD, Ignacia Dumont Position: Physician - Sleep Medicine Member Role: Lifetime Relationship Address: [address] [place] [address] [place] Name: MD Sherif, Dillon Cano Position: Physician - Family Med Member Role: Lifetime Relationship Address: [address] [place] [address] [place] Name: MD Eliot, Ravi Barahona Position: Referring Member Role: Lifetime Relationship Address: [facility], [address] [place] [address] [place] Name: HARESH Elizabeth Hillarie B Position: Nurse Practitioner - Psychotherapy Member Role: Lifetime Relationship Address: [address] [place] [address] [place] Name: DO Sawyer Helen M Position: Resident Member Role: Primary Care Provider Address: [address] [place] [address] Care Team Related Persons Name: MEAGAN BRYAN Name: TRAVIS BRYAN Name: TRAVIS BRYAN
[2024-11-16 17:16] LABS: Hematocrit (blood only) 44.5 % (37.0-47.0); Hemoglobin 14.9 g/dl (12.0-16.0); Mean Corpuscular Hemoglobin 29.3 pg (25.0-34.0); Mean Corpuscular Hgb Conc 33.5 g/dL (32.0-36.0); Mean Corpuscular Volume 87.6 fL (80.0-100.0); Mean Platelet Volume 9.3 fL (9.4-12.4); Platelet Count 410 K/uL (130-400); RDW Coefficient of Variation 11.8 % (11.5-14.5); Red Blood Count 5.08 M/uL (4.20-5.40); White Blood Count 18.88 K/ul (4.8-10.8)
[2024-11-16 17:42] LABS: Basophils # (auto) 0.03 K/uL (0.00-0.20); Basophils % (auto) 0.2 %; Bilirubin,Total 0.7 mg/dl (0.2-1.0); Calcium 9.8 mg/dl (8.6-10.3); Eosinophils # (auto) 0.03 K/uL (0.00-0.50); Eosinophils % (auto) 0.2 %; Immature Granulocytes # (auto) 0.07 K/uL (0.01-0.20); Immature Granulocytes % (auto) 0.4 %; Lymphocytes # (auto) 0.51 K/uL (1.20-3.40); Lymphocytes % (auto) 2.7 %; Monocytes # (auto) 0.48 K/uL (0.11-0.59); Monocytes % (auto) 2.5 %; Neutrophils # (auto) 17.76 K/uL (1.40-6.50); Potassium 4.1 mmol/L (3.5-5.1); Stomatocytes 1+
[2024-11-16 17:48] LABS: Albumin Globulin Ratio 1.3 (0.9-2); BUN Creatinine Ratio 18.1 (10-20); Globulin 3.8 gm/dl (2.5-4.0); Total Protein 8.8 gm/dl (6.0-8.3)
[2024-11-16] MEDS: SODIUM CHLORIDE 0.9% 2,000 ML IV ONE (17:49)
[2024-11-16 18:04] LABS: Appearance Urine Cloudy (Clear); Bacteria Urine Automated 3+ (None Seen); Bilirubin Urine Negative (Negative); Blood Urine 1+ (Negative); Cast Urine Automated 0-2 /lpf (0-2); Color Urine Yellow; Glucose Urine UA Negative (Negative); Ketones Urine Trace (Negative); Leukocyte Esterase Urine Trace (Negative); Mucus Urine Present (None Prsent); Nitrite Urine Negative (Negative); Protein Urine Trace (Negative); RBC Urine Automated >20 /hpf (0-2); Specific Gravity Urine 1.033 (1.000-1.030); Urobilinogen Urine Negative (Negative)
[2024-11-16 18:05] LABS: Adenovirus PCR Not Detected (NotDetected); Bordetella parapertussis PCR Not Detected (NotDetected); Bordetella pertussis PCR Not Detected (NotDetected); Chlamydia pneumoniae PCR Not Detected (NotDetected); Coronavirus 229E PCR Not Detected (NotDetected); Coronavirus CoV-2 (COVID19)PCR Not Detected (NotDetected); Coronavirus HKU1 PCR Not Detected (NotDetected); Coronavirus NL63 PCR Not Detected (NotDetected); Coronavirus OC43PCR Not Detected (NotDetected); Human Metapneumovirus PCR Not Detected (NotDetected); Influenza A PCR Not Detected (NotDetected); Influenza B PCR Not Detected (NotDetected); Mycoplasma pneumoniae PCR Not Detected (NotDetected); Parainfluenza Virus 1 PCR Not Detected (NotDetected); Parainfluenza Virus 2 PCR Not Detected (NotDetected); Parainfluenza Virus 3 PCR Not Detected (NotDetected); Parainfluenza Virus 4 PCR Not Detected (NotDetected); Respiratory Syncytial VirusPCR Not Detected (NotDetected); Rhinovirus/Enterovirus PCR Not Detected (NotDetected)
[2024-11-16] MEDS: diphenhydrAMINE 50 MG/ML VIAL IV STA (18:14)
[2024-11-16] MEDS: cefTRIAXone SODIUM 2,000 MG/50 ML BAG IV STA (18:14)
[2024-11-16] MEDS: PROCHLORPERAZINE 1 ML IV ONE (18:14)
[2024-11-16 18:21] LABS: Pregnancy Test, Serum Negative (Negative)
[2024-11-16] MEDS: ONDANSETRON INJ 2 MG/ML 2 ML VIAL IV STA (18:24)
--- NOTE | 2024-11-16 18:52 | Emergency Department Note ---
Impression & Plan Nausea, vomiting, and diarrhea, Acute UTI (urinary tract infection), Abdominal pain, SBO (small bowel obstruction) ED Provider Note HISTORY OF PRESENT ILLNESS: Patient is a 24-year-old female presenting with generalized abdominal pain and vomiting and diarrhea. Patient reports that she has been unable to tolerate anything by mouth for the last 24 hours. Reports that at 7 AM she took Zofran and then at 4 PM she took Zofran and continued to vomit, prompting presentation to the ER. 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 She reports an abdominal surgical history significant for appendectomy. Denies any chest pain or shortness of breath. She reports she is been having liquid stool all day long. Denies any recent travel. Denies any recent sick contact exposures. ROS: as above PHYSICAL EXAM: Constitutional: Patient appears in no acute distress. HENT: Head: Normocephalic and atraumatic. Eyes: EOMI, PERRL Mouth/Throat: Mucous membranes moist. Neck: Trachea midline. Neck supple. Cardiovascular: Tachycardic with regular rhythm. No murmurs, rubs or gallops. Intact distal pulses. Pulmonary/Chest: No respiratory distress. Breath sounds clear and equal bilaterally. No wheezes or rales. Abdominal: Abdomen soft, no tenderness, rebound or guarding. Musculoskeletal: No edema, tenderness or deformity noted. Skin: Warm and dry. No rash, erythema, pallor or cyanosis Psychiatric: Appropriate mood and affect for situation. Neurological: Alert and keenly responsive. CN II-XII grossly intact, moving all extremities equally and fully. MDM: - Vitals signs showed tachycardia - History obtained via patient. History as above. 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 At this time, monitor showed rate of 115 bpm with normal sinus rhythm, per my interpretation. - External medical records reviewed. - Laboratory workup interpreted by myself showed leukocytosis (WBC 18.88) with neutrophil predominance; normal lactate; stable electrolytes; normal procalcitonin; negative hCG - UA showed evidence of infection. Given 2g IV rocephin - Viral respiratory panel negative - CT abdomen/pelvis with IV contrast showed findings consistent with a possible early small bowel obstruction. - Patient given 2g IV rocephin, 25 mg IV benadryl and 5 mg IV compazine. - Discussed case with surgeon internal communications specialist, Dr. Harmon, at 20:45. He reports that patient to be admitted to medicine service and will follow as a consult. - Discussion was had with sample case porter about patient's case and need for admission - Hospitalist consulted for admission - Patient admitted to [facility] service for further evaluation and management. ASSESSMENT AND PLAN: Diagnosis: Nausea, vomiting and diarrhea; acute UTI; small bowel obstruction; abdominal pain Plan: Admit Past Med/Surg History Problem List (Updated 11/16/24 @ 21:41 by Nimisha Wynn MD) SBO (small bowel obstruction) (Acute) Abdominal pain (Acute) Acute UTI (urinary tract infection) (Acute) Nausea, vomiting, and diarrhea (Acute) UTI symptoms Surgical History No significant past surgical history Social History Smoking Status: Never smoker Preferred Language: Occitan Feels Safe at Home: Yes Allergies Allergies Allergy/AdvReac Type Severity Reaction Status Date / Time acetaminophen [From Percocet] Allergy Mild Verified 06/18/24 13:23 adhesive tape Allergy Mild Rash Verified 06/18/24 13:23 amoxicillin [From Augmentin] Allergy Mild hearing Verified 06/18/24 13:23 loss ciprofloxacin [From Cipro] Allergy Mild leg cramps Verified 06/18/24 13:23 clavulanic acid Allergy Mild hearing Verified 06/18/24 13:23 [From Augmentin] loss gluten Allergy Mild Verified 06/18/24 13:23 Milk Containing Products Allergy Mild Rash Verified 06/18/24 13:23 (Dairy) oxycodone [From Percocet] Allergy Mild Verified 06/18/24 13:23 Home Meds Home Medications Medication Instructions Recorded Confirmed atomoxetine 40 mg capsule 40 mg PO DAILY 06/18/24 06/18/24 clonazepam 1 mg tablet 1 mg PO DAILY 06/18/24 06/18/24 duloxetine 60 mg capsule,delayed 60 mg PO DAILY 06/18/24 06/18/24 release (Cymbalta) epinephrine 0.3 mg/0.3 mL 0.3 mg IM Q10M PRN 06/18/24 06/18/24 injection, auto-injector erenumab-aooe 140 mg/mL mg subcut 06/18/24 06/18/24 subcutaneous auto-injector (Aimovig Autoinjector) famotidine 20 mg tablet 20 mg PO DAILY 06/18/24 06/18/24 ferrous sulfate 325 mg (65 mg 325 mg PO DAILY 06/18/24 06/18/24 iron) tablet fludrocortisone 0.1 mg tablet 0.1 mg PO DAILY 06/18/24 06/18/24 fluticasone propionate 50 2 spray intranasal DAILY 06/18/24 06/18/24 mcg/actuation nasal spray,suspension (Flonase Allergy Relief) folic acid 1 mg tablet 1 mg PO DAILY 06/18/24 06/18/24 glycopyrrolate 1 mg tablet 1 mg PO TID 06/18/24 06/18/24 immune globulin,gamma(IgG)klhw 1 subcut 06/18/24 06/18/24 gram/5 mL (20%) subcut solution lamotrigine 150 mg tablet 150 mg PO DAILY 06/18/24 06/18/24 lidocaine-prilocaine 2.5 %-2.5 % topical 06/18/24 06/18/24 topical cream ekktfp-bixfkcks-nuxtkje 1 cap PO BID 06/18/24 06/18/24 36,000-114,000-180,000 unit capsule,delay rel (Creon) metoprolol succinate 25 mg capsule 25 mg PO DAILY 06/18/24 06/18/24 sprinkle, ext. release 24 hr nitroglycerin 2 % transdermal 1 inch transdermal BID 06/18/24 06/18/24 ointment (Nitro-Bid) norethindrone acetate 5 mg tablet 5 mg PO DAILY 06/18/24 06/18/24 trazodone 50 mg tablet 50 mg PO DAILY 06/18/24 06/18/24 tretinoin 0.025 % topical cream 1 applic topical Q OTHER DAY 06/18/24 06/18/24 (Avita) vitamin B complex 1 tab PO DAILY 06/18/24 06/18/24 Previous Rx's Medication Instructions Recorded sulfamethoxazole 800 1 tab PO BID 5 days #10 tabs 06/18/24 mg-trimethoprim 160 mg tablet (Bactrim DS) Results & Data (ED) Vital Signs Vital Signs - 24 hr 11/16/24 16:48 11/16/24 17:44 11/16/24 17:56 Temperature 36.8 C Temperature Source Oral Pulse Rate 94 H 112 H Pulse Rate [Apical] 106 H Respiratory Rate 18 18 Respiratory Effort / Characteristics Non-Labored Spontaneous Non-Labored Spontaneous Respiratory Depth Normal Normal Blood Pressure 127/83 Blood Pressure [Right Arm] 104/75 Blood Pressure Mean 97 Blood Pressure Mean [Right Arm] 84 Blood Pressure Position [Right Arm] Lying Pulse Oximetry 100 95 Oxygen Delivery Method Room Air Room Air Sepsis Recent Fever Within 48 Hours No Sepsis New/Unexplained Change in Mental Status No Sepsis Action Taken by Nursing No Action Required 11/16/24 19:00 11/16/24 20:00 Temperature Temperature Source Pulse Rate Pulse Rate [Apical] 103 H 109 H Respiratory Rate 18 20 Respiratory Effort / Characteristics Respiratory Depth Blood Pressure Blood Pressure [Right Arm] 122/78 122/72 Blood Pressure Mean Blood Pressure Mean [Right Arm] 92 88 Blood Pressure Position [Right Arm] Pulse Oximetry 97 100 Oxygen Delivery Method Room Air Room Air Sepsis Recent Fever Within 48 Hours Sepsis New/Unexplained Change in Mental Status Sepsis Action Taken by Nursing Laboratory Data 11/16/24 17:05 11/16/24 17:05 Lab Results 11/16/24 11/16/24 11/16/24 Range/Units 17:05 17:06 17:12 WBC 18.88 H (4.8-10.8) K/ul RBC 5.08 (4.20-5.40) M/uL Hgb 14.9 (12.0-16.0) g/dl Hct 44.5 (37.0-47.0) % MCV 87.6 (80.0-100.0) fL MCH 29.3 (25.0-34.0) pg MCHC 33.5 (32.0-36.0) g/dL RDW Std Deviation 38.0 (36.4-46.3) fL RDW Coeff of Kathy 11.8 (11.5-14.5) % Plt Count 410 H (130-400) K/uL MPV 9.3 L (9.4-12.4) fL Immature Gran % (Auto) 0.4 % Neut % (Auto) 94.0 % Lymph % (Auto) 2.7 % [place] % (Auto) 2.5 % Eos % (Auto) 0.2 % Baso % (Auto) 0.2 % Neut # (Auto) 17.76 H (1.40-6.50) K/uL Lymph # (Auto) 0.51 L (1.20-3.40) K/uL [place] # (Auto) 0.48 (0.11-0.59) K/uL Eos # (Auto) 0.03 (0.00-0.50) K/uL Baso # (Auto) 0.03 (0.00-0.20) K/uL Immature Gran # (Auto) 0.07 (0.01-0.20) K/uL Stomatocytes 1+ Sodium 136 (136-145) mmol/L Potassium 4.1 (3.5-5.1) mmol/L Chloride 104 (98-107) mmol/L Carbon Dioxide 23 (21-32) mmol/L Anion Gap 9 (3-11) BUN 15 (6-23) mg/dl Creatinine 0.83 (0.6-1.2) mg/dl Est Cr Clr Drug Dosing 118.0 ml/min eGFR 100.89 BUN/Creatinine Ratio 18.1 (10-20) Glucose 117 H (70-99(Fasting)) mg/dl Lactate (0.4-2.0) mmol/L Calcium 9.8 (8.6-10.3) mg/dl Magnesium 1.8 (1.7-2.4) mg/dl Total Bilirubin 0.7 (0.2-1.0) mg/dl AST 34 (13-39) U/L ALT 46 (7-52) U/L Alkaline Phosphatase 103 (34-104) U/L Total Protein 8.8 H (6.0-8.3) gm/dl Albumin 5.0 (3.4-5.0) gm/dl Globulin 3.8 (2.5-4.0) gm/dl Albumin/Globulin Ratio 1.3 (0.9-2) Procalcitonin 0.04 (0-0.5) ng/ml HCG, Qual Negative (Negative) Urine Color Yellow Urine Appearance Cloudy A (Clear) Urine pH 6.0 (4.5-7.5) Ur Specific [place] 1.033 H (1.000-1.030) Urine Protein Trace H (Negative) Urine Glucose (UA) Negative (Negative) Urine Ketones Trace H (Negative) Urine Blood 1+ H (Negative) Urine Nitrite Negative (Negative) Urine Bilirubin Negative (Negative) Urine Urobilinogen Negative (Negative) Ur Leukocyte Esterase Trace H (Negative) Urine WBC (Auto) 11-20 H (0-5) /hpf Urine RBC (Auto) >20 H (0-2) /hpf U Hyaline Cast (Auto) 0-2 (0-2) /lpf U Epithel Cells (Auto) 11-20 H (0-2) /hpf Urine Bacteria (Auto) 3+ H (None Seen) Urine Mucus Present A (None Prsent) Adenovirus (PCR) Not Detected (NotDetected) B. pertussis DNA (PCR) Not Detected (NotDetected) B.parapertussis DNA PCR Not Detected (NotDetected) C. pneumoniae DNA (PCR) Not Detected (NotDetected) Coronavirus OC43 (PCR) Not Detected (NotDetected) Coronavirus HKU1 (PCR) Not Detected (NotDetected) Coronavirus 229E (PCR) Not Detected (NotDetected) SARS-CoV-2 (PCR) Not Detected (NotDetected) Coronavirus NL63 (PCR) Not Detected (NotDetected) Human Metapneumovir PCR Not Detected (NotDetected) Influenza Type A (PCR) Not Detected (NotDetected) Influenza Type B (PCR) Not Detected (NotDetected) M. pneumoniae (PCR) Not Detected (NotDetected) Parainfluenza 1 (PCR) Not Detected (NotDetected) Parainfluenza 2 (PCR) Not Detected (NotDetected) Parainfluenza 3 (PCR) Not Detected (NotDetected) Parainfluenza 4 (PCR) Not Detected (NotDetected) RSV (PCR) Not Detected (NotDetected) Entero/Rhino (PCR) Not Detected (NotDetected) 11/16/24 Range/Units 17:53 WBC (4.8-10.8) K/ul RBC (4.20-5.40) M/uL Hgb (12.0-16.0) g/dl Hct (37.0-47.0) % MCV (80.0-100.0) fL MCH (25.0-34.0) pg MCHC (32.0-36.0) g/dL RDW Std Deviation (36.4-46.3) fL RDW Coeff of Kathy (11.5-14.5) % Plt Count (130-400) K/uL MPV (9.4-12.4) fL Immature Gran % (Auto) % Neut % (Auto) % Lymph % (Auto) % [place] % (Auto) % Eos % (Auto) % Baso % (Auto) % Neut # (Auto) (1.40-6.50) K/uL Lymph # (Auto) (1.20-3.40) K/uL [place] # (Auto) (0.11-0.59) K/uL Eos # (Auto) (0.00-0.50) K/uL Baso # (Auto) (0.00-0.20) K/uL Immature Gran # (Auto) (0.01-0.20) K/uL Stomatocytes Sodium (136-145) mmol/L Potassium (3.5-5.1) mmol/L Chloride (98-107) mmol/L Carbon Dioxide (21-32) mmol/L Anion Gap (3-11) BUN (6-23) mg/dl Creatinine (0.6-1.2) mg/dl Est Cr Clr Drug Dosing ml/min eGFR BUN/Creatinine Ratio (10-20) Glucose (70-99(Fasting)) mg/dl Lactate 0.8 (0.4-2.0) mmol/L Calcium (8.6-10.3) mg/dl Magnesium (1.7-2.4) mg/dl Total Bilirubin (0.2-1.0) mg/dl AST (13-39) U/L ALT (7-52) U/L Alkaline Phosphatase (34-104) U/L Total Protein (6.0-8.3) gm/dl Albumin (3.4-5.0) gm/dl Globulin (2.5-4.0) gm/dl Albumin/Globulin Ratio (0.9-2) Procalcitonin (0-0.5) ng/ml HCG, Qual (Negative) Urine Color Urine Appearance (Clear) Urine pH (4.5-7.5) Ur Specific [place] (1.000-1.030) Urine Protein (Negative) Urine Glucose (UA) (Negative) Urine Ketones (Negative) Urine Blood (Negative) Urine Nitrite (Negative) Urine Bilirubin (Negative) Urine Urobilinogen (Negative) Ur Leukocyte Esterase (Negative) Urine WBC (Auto) (0-5) /hpf Urine RBC (Auto) (0-2) /hpf U Hyaline Cast (Auto) (0-2) /lpf U Epithel Cells (Auto) (0-2) /hpf Urine Bacteria (Auto) (None Seen) Urine Mucus (None Prsent) Adenovirus (PCR) (NotDetected) B. pertussis DNA (PCR) (NotDetected) B.parapertussis DNA PCR (NotDetected) C. pneumoniae DNA (PCR) (NotDetected) Coronavirus OC43 (PCR) (NotDetected) Coronavirus HKU1 (PCR) (NotDetected) Coronavirus 229E (PCR) (NotDetected) SARS-CoV-2 (PCR) (NotDetected) Coronavirus NL63 (PCR) (NotDetected) Human Metapneumovir PCR (NotDetected) Influenza Type A (PCR) (NotDetected) Influenza Type B (PCR) (NotDetected) M. pneumoniae (PCR) (NotDetected) Parainfluenza 1 (PCR) (NotDetected) Parainfluenza 2 (PCR) (NotDetected) Parainfluenza 3 (PCR) (NotDetected) Parainfluenza 4 (PCR) (NotDetected) RSV (PCR) (NotDetected) Entero/Rhino (PCR) (NotDetected) Administered Medications Discontinued Medications Diphenhydramine HCl (Diphenhydramine 50 Mg/Ml Vial) 25 mg IV NOW STA Stop: 11/16/24 18:07 Last Admin: 11/16/24 18:14 Dose: 25 mg Documented By: CC Sodium Chloride (Nss) 2,000 mls @ 999 mls/hr IV .Q2H1M ONE Stop: 11/16/24 19:46 Last Admin: 11/16/24 17:49 Dose: 999 mls/hr Documented By: CC Ceftriaxone Sodium (Rocephin) 2,000 mg in 50 mls @ 100 mls/hr IV NOW STA Stop: 11/16/24 18:35 Last Infusion: 11/16/24 19:10 Dose: Infused Documented By: Admin: 11/16/24 18:14 Dose: 100 mls/hr Documented By: CC Prochlorperazine (Compazine) 1 mls @ 1 mls/min IV ONE ONE Stop: 11/16/24 18:07 Last Admin: 11/16/24 18:14 Dose: 1 mls/min Documented By: CC Ioversol (Optiray 320 100ml) 92 ml IV ONCE ONE Stop: 11/16/24 18:54 Last Admin: 11/16/24 18:54 Dose: 92 ml Documented By: GES Ondansetron HCl (Ondansetron Inj 2 Mg/Ml 2 Ml Vial) 4 mg IV NOW STA Stop: 11/16/24 17:47 Last Admin: 11/16/24 18:24 Dose: Not Given Documented By: CC Imaging Data Radiologist's Impression: Abdomen/Pelvis CT 11/16/24 18:06 HISTORY: Nausea, vomiting, and diarrhea. TECHNIQUE: Helical CT imaging of the abdomen and pelvis was performed following uneventful administration of 92 cc of Optiray 320 IV contrast. Axial, sagittal, coronal reformats are provided. COMPARISON: None. FINDINGS: The lung bases are clear. The liver, gallbladder, spleen, adrenal glands, and pancreas are unremarkable. Hypodense lesions within the superior right kidney favoring cysts. No hydronephrosis. Distal esophagus is unremarkable. The stomach and duodenum are fluid-filled. Fluid-filled loops of small bowel. There is transition point in the left pelvis on series 2 image 58 concerning for small bowel obstruction with dilated loops of small bowel measuring up to 2.5 cm in diameter. The colon is normal in caliber. The appendix is not identified. The urinary bladder and uterus are unremarkable. No free pelvic fluid. No enlarged lymph nodes are identified. No abdominal aortic aneurysm. Retroaortic left renal vein. The soft tissues of the body wall are unremarkable. No acute osseous abnormality. IMPRESSION: 1. Fluid-filled stomach, Duodenum, and proximal small bowel loops. Mildly dilated small bowel loops measuring up to 2.5 cm in diameter with possible transition point in the left pelvis on series 2 image 58. Findings concerning for early small bowel obstruction. 2. Hypodense cortical lesions within the superior pole of the left kidney favor cortical cysts. Correlation with renal ultrasound is recommended. 3. The appendix is not identified. 4. Additional chronic and/or incidental findings as above. Findings were discussed with the ordering provider Nimisha Wynn via telephone at 7:30 PM on 11/16/2024. Electronically signed by Dillon Sheppard 11-16-2024 7:31 PM Discharge Plan Visit Data Chief Complaint: Flu Like Symptoms Stated Complaint: DIARRHEA, SWEATING, DIZZY COUGH, ED Provider: Nimisha Wynn Discharge Problem: Nausea, vomiting, and diarrhea, Acute UTI (urinary tract infection), Abdominal pain, SBO (small bowel obstruction) Forms Stand Alone Forms: [facility] Prescriptions Prescriptions: No Action duloxetine [Cymbalta] 60 mg capsule,delayed release(DR/EC) 60 mg PO DAILY atomoxetine 40 mg capsule 40 mg PO DAILY glycopyrrolate 1 mg tablet 1 mg PO TID norethindrone acetate 5 mg tablet 5 mg PO DAILY epinephrine 0.3 mg/0.3 mL auto-injector 0.3 mg IM Q10M PRN Rx Instructions: for 2 doses fludrocortisone 0.1 mg tablet 0.1 mg PO DAILY metoprolol succinate 25 mg capsule,sprinkle,ER 24hr 25 mg PO DAILY famotidine 20 mg tablet 20 mg PO DAILY trazodone 50 mg tablet 50 mg PO DAILY lamotrigine 150 mg tablet 150 mg PO DAILY Aimovig Autoinjector 140 mg/mL auto-injector subcut immune globulin,gamma(IgG)klhw 1 gram/5 mL (20 %) solution subcut ferrous sulfate 325 mg (65 mg iron) tablet 325 mg PO DAILY Creon 36,000-114,000- 180,000 unit capsule,delayed release(DR/EC) 1 cap PO BID Rx Instructions: administer with meals and/or snacks clonazepam 1 mg tablet 1 mg PO DAILY tretinoin [Avita] 0.025 % cream 1 applic topical Q OTHER DAY fluticasone propionate [Flonase Allergy Relief] 50 mcg/actuation spray,suspension 2 spray intranasal DAILY Rx Instructions: administer into each nostril lidocaine-prilocaine 2.5-2.5 % cream topical folic acid 1 mg tablet 1 mg PO DAILY vitamin B complex Tablet 1 tab PO DAILY Nitro-Bid 2 % ointment 1 inch transdermal BID Rx Instructions: administer 2 doses/day (approx. 6 hrs apart); remove for 10-12 hrs per 24 hours sulfamethoxazole-trimethoprim [Bactrim DS] 800-160 mg tablet 1 tab PO BID 5 Days Qty: 10 0RF Referrals Referrals: [facility] [Primary Care Provider] -
[2024-11-16] MEDS: OPTIRAY 320 100ml IV ONE (18:54)
--- NOTE | 2024-11-16 19:31 | CT Scan Report ---
HISTORY: Nausea, vomiting, and diarrhea. TECHNIQUE: Helical CT imaging of the abdomen and pelvis was performed following uneventful administration of 92 cc of Optiray 320 IV contrast. Axial, sagittal, coronal reformats are provided. COMPARISON: None. FINDINGS: The lung bases are clear. The liver, gallbladder, spleen, adrenal glands, and pancreas are unremarkable. Hypodense lesions within the superior right kidney favoring cysts. No hydronephrosis. Distal esophagus is unremarkable. The stomach and duodenum are fluid-filled. Fluid-filled loops of small bowel. There is transition point in the left pelvis on series 2 image 58 concerning for small bowel obstruction with dilated loops of small bowel measuring up to 2.5 cm in diameter. The colon is normal in caliber. The appendix is not identified. The urinary bladder and uterus are unremarkable. No free pelvic fluid. No enlarged lymph nodes are identified. No abdominal aortic aneurysm. Retroaortic left renal vein. The soft tissues of the body wall are unremarkable. No acute osseous abnormality. IMPRESSION: 1. Fluid-filled stomach, Duodenum, and proximal small bowel loops. Mildly dilated small bowel loops measuring up to 2.5 cm in diameter with possible transition point in the left pelvis on series 2 image 58. Findings concerning for early small bowel obstruction. 2. Hypodense cortical lesions within the superior pole of the left kidney favor cortical cysts. Correlation with renal ultrasound is recommended. 3. The appendix is not identified. 4. Additional chronic and/or incidental findings as above. Findings were discussed with the ordering provider Nimisha Wynn via telephone at 7:30 PM on 11/16/2024. Electronically signed by Dillon Sheppard 11-16-2024 7:31 PM
[2024-11-16] MEDS ORDERED: VANCOMYCIN CONSULT ACTIVE PRN (21:25)
--- NOTE | 2024-11-16 21:25 | History & Physical Report ---
Date of Service November 16, 2024 Assessment & Plan (1) SBO (small bowel obstruction): (2) Acute UTI (urinary tract infection): (3) CVID (common variable immunodeficiency): (4) Leukocytosis: (5) POTS (postural orthostatic tachycardia syndrome): Plan Patient is a 24-year-old female with a past medical history of CVID, POTS, history of SBO relieved by NG tube several years ago, anemia, anxiety/depression. She presented to the ED due to diarrhea, vomiting, confusion, fever, dizziness, and abdominal discomfort. Patient was found to have a UTI and CT showing concern for early SBO. She is being admitted by medicine team with surgery consult. #Small bowel obstruction history of SBO several years ago Previous abdominal surgeries include appendix removal, nisin fundoplication 21 mo/o CTAP showed fluid-filled stomach, duodenum, and proximal small bowel loops, mildly dilated small bowel loops with possible transition point in left pelvis; findings concerning for early small bowel obstruction n.p.o. General Surgery consulted Acid reduction with IV Protonix and Pepcid Did have 1 episode of diarrhea a.m. of 11/16 stool cultures ordered if patient has bowel movement nausea control with IV Zofran and IV Phenergan 2L NSS bolus in ED; continue IVF with NSS at 80 mL/hour IV Tylenol as needed do not see need for emergent NG tube on admission; mildly distended, mild discomfort noted that noted that patient previously followed with [facility] Dr. Geller? Day team to further investigate and reach out #UTI/CVID Immunocompromised with history of CVID; has weekly IgG transfusions on Saturdays; missed infusion 11/16 due to illness Follows with Dr. Torrez, [facility] allergy and immunology - Day team to reach out UA appears infectious with elevated specific gravity, trace protein, trace ketones, hematuria, 11-20 WBC, 3+ bacteria; 11-20 epithelial cells so possible contaminant UTI 06/18/2024 treated with Bactrim, cultures grew 3 margaret, no ID or sensitivities Asymptomatic as patient is immunocompromise will cover with broad-spectrum antibiotics Zosyn plus vancomycin Given ceftriaxone in ED Follow urine cultures Blood cultures ordered #leukocytosis WBC 18.8 on admission No previous labs in system however patient notes chronically around 18 Lactate negative Low concern for sepsis, afebrile follow blood cultures trend CBC #POTS/tachycardia on metoprolol 25 Mg at home Tachycardic on admission, HR as high as 123; missed home medications today IV Lopressor prn for HR >120 magnesium 1.8, 1G IV ordered K+ and NA stable Anticipate to improve with IV hydration AP CT finding of hypodense cortical lesions within superior pole of left kidney that favor cortical cyst; ultrasound recommended outpatient follow-up Chronic stable diagnoses: anxiety/depression/ADHD/bipolar holding home p.o. medications (duloxetine, clonazepam, atomoxetine, lamotrigine) GERD famotidine transition to IV anemia - stable, holding iron and folic acid supplement VTE ppx: SCDs, defer chemical ppx as able to ambulate and potential for surgical intervention Diet: NPO Dispo: PCU with potential need for Lopressor Admission and Anticipated Discharge Date Admission Date: 11/16/24 History of Present Illness Chief Complaint: flu like symptoms Primary Care Provider: [facility] Patient is a 24-year-old female with a past medical history of CVID, POTS, history of SBO relieved by NG tube several years ago, anemia, anxiety/depression. She presented to the ED due to diarrhea, vomiting, confusion, fever, dizziness, and abdominal discomfort. Patient was found to have a UTI and CT showing concern for early SBO. She is being admitted by medicine team with surgery consult. Patient seen at bedside. She stated this morning she had an episode of liquid diarrhea but has had no bowel movements since. She also had nausea, vomiting, dizziness, confusion and felt feverish. She does endorse having a little bit of flatulence since. She felt very hot while at home but did not take her temperature, afebrile on admission. She stated she also had abdominal discomfort and became bloated throughout the day. She has had a history of small bowel obstruction several years ago that was relieved with NG tube. She has had previous abdominal surgeries including appendix removal and nisin fundoplication when she was 21 months old. She had tube feedings for approximately 12 years. She last ate this morning, only had a few pretzels. Patient stated she used to follow with [facility] Dr. Cash, who she no longer has to follow due to improvement of GI diagnoses. She also mention she previously took bowel preps when this happened. She denies any urinary symptoms, no dysuria, no difficulty urinating, no hematuria. She does have a history of a UTI in June in which she was prescribed Bactrim; cultures grew 3 margaret, no ID or sensitivities. She did have increase in urination with this, currently denies. UA appears infectious on admission. No previous positive cultures on file. Patient is immunocompromised with history of CVID requiring weekly IgG infusions on Saturdays. She did not go to her infusion today because she felt so sick. She follows with Dr. Torrez, [facility] allergy and immunology. She also has a history of POTS in which she takes metoprolol for because her heart rate typically becomes elevated. Heart rate 123 on admission, she did not take any of her morning medications today. Likely component of dehydration as well. She denies use of nicotine products, alcohol, or illicit drugs. She denies past history of COPD, asthma, DM. She did not take any of her home medications today. She is not on chronic antibiotic suppressive therapy. She wishes to be full code. Allergies Allergy/AdvReac Type Severity Reaction Status Date / Time acetaminophen [From Percocet] Allergy Mild Verified 06/18/24 13:23 adhesive tape Allergy Mild Rash Verified 06/18/24 13:23 amoxicillin [From Augmentin] Allergy Mild hearing Verified 06/18/24 13:23 loss ciprofloxacin [From Cipro] Allergy Mild leg cramps Verified 06/18/24 13:23 clavulanic acid Allergy Mild hearing Verified 06/18/24 13:23 [From Augmentin] loss gluten Allergy Mild Verified 06/18/24 13:23 Milk Containing Products Allergy Mild Rash Verified 06/18/24 13:23 (Dairy) oxycodone [From Percocet] Allergy Mild Verified 06/18/24 13:23 Home Medications Medication Instructions Recorded Confirmed Type atomoxetine 40 mg capsule 40 mg PO DAILY 06/18/24 11/17/24 History clonazepam 1 mg tablet 1 mg PO DAILY PRN Seizure Activity 06/18/24 11/17/24 History duloxetine 60 mg capsule,delayed 60 mg PO DAILY 06/18/24 11/17/24 History release (Cymbalta) epinephrine 0.3 mg/0.3 mL 0.3 mg IM Q10M PRN allergic 06/18/24 11/17/24 History injection, auto-injector reaction erenumab-aooe 140 mg/mL 140 mg subcut DIRECTED 06/18/24 11/17/24 History subcutaneous auto-injector (Aimovig Autoinjector) famotidine 20 mg tablet 20 mg PO DAILY 06/18/24 11/17/24 History ferrous sulfate 325 mg (65 mg 325 mg PO DAILY 06/18/24 11/17/24 History iron) tablet fludrocortisone 0.1 mg tablet 0.1 mg PO DAILY 06/18/24 11/17/24 History fluticasone propionate 50 2 spray intranasal DAILY 06/18/24 11/17/24 History mcg/actuation nasal spray,suspension (Flonase Allergy Relief) folic acid 1 mg tablet 1 mg PO DAILY 06/18/24 11/17/24 History glycopyrrolate 1 mg tablet 1 mg PO BID 06/18/24 11/17/24 History immune globulin,gamma(IgG)klhw 1 1 g subcut WK 06/18/24 11/17/24 History gram/5 mL (20%) subcut solution lamotrigine 150 mg tablet 150 mg PO BID 06/18/24 11/17/24 History lidocaine-prilocaine 2.5 %-2.5 % 1 applic topical WK 06/18/24 11/17/24 History topical cream umvmri-pzvxalgn-lnnseis 1 cap PO BID 06/18/24 11/17/24 History 36,000-114,000-180,000 unit capsule,delay rel (Creon) metoprolol succinate 25 mg capsule 25 mg PO DAILY 06/18/24 11/17/24 History sprinkle, ext. release 24 hr nitroglycerin 2 % transdermal 1 inch transdermal BID 06/18/24 11/17/24 History ointment (Nitro-Bid) norethindrone acetate 5 mg tablet 5 mg PO DAILY 06/18/24 11/17/24 History trazodone 50 mg tablet 50 mg PO DAILY 06/18/24 11/17/24 History tretinoin 0.025 % topical cream 1 applic topical Q OTHER DAY 06/18/24 11/17/24 History (Avita) vitamin B complex 1 tab PO DAILY 06/18/24 11/17/24 History Past Med/Surg History Problem List POTS (postural orthostatic tachycardia syndrome) Leukocytosis CVID (common variable immunodeficiency) SBO (small bowel obstruction) (Acute) Abdominal pain (Acute) Acute UTI (urinary tract infection) (Acute) Nausea, vomiting, and diarrhea (Acute) UTI symptoms Medical History Anxiety Hx SBO Surgical History History of appendectomy History of Adelaide fundoplication No significant past surgical history Social History Smoking Status: Never smoker Hx Alcohol Use: No Hx Substance Use: No Preferred Language: Upper Sorbian Communication Ability: Effective 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 Non-toxic appearing. HEENT- EOMI, mucous membranes dry. Hearing grossly intact. Heart-normal S1 and S2. No murmurs, rubs or gallops. Lungs-clear bilaterally, no respiratory distress, no accessory muscle use. Abdomen-normal bowel sounds and soft. No ascites noted. Non-tender. Extremities- no clubbing, cyanosis, or edema. Rheumatologic-normal range of motion. Psychiatric-normal affect. Results & Data Results & Data Vital Signs (Past 12 Hours) Vital Signs Temp Pulse Pulse Resp BP BP Pulse Ox 11/16/24 20:00 109 H 20 122/72 100 11/16/24 19:00 103 H 18 122/78 97 11/16/24 17:56 106 H 18 104/75 95 11/16/24 17:44 112 H 11/16/24 16:48 36.8 C 94 H 18 127/83 100 O2 Del Method 11/16/24 20:00 Room Air 11/16/24 19:00 Room Air 11/16/24 17:56 Room Air 11/16/24 17:44 11/16/24 16:48 Room Air Laboratory Results Reviewed CBC, CMP, Pro-Dewayne, hCG, UA, bio fire Diagnostic Findings reviewed AP CT Medications Administered ED2L NSS, Zofran, Benadryl, Compazine, Rocephin 2G IV AdmissionProtonix IV, Zosyn IV, Vanco ECG Additional Comments: ordered Code Status & VTE Plan Code Status full code VTE Prophylaxis Plan VTE Prophylaxis will be ordered: Yes Supervising Physician Co-Signing Physician Notes Attending addendum: I have physically seen this patient, have supervised the BLANCA's activities, and agree with the H&P unless as otherwise noted. Assessment and Plan: The patient is a 24-year-old female with past medical history including CVID, POTS, history of multiple SBO's, anemia, anxiety with depression. She presents to the emergency department with symptoms of diarrhea, vomiting, confusion, fever, dizziness and abdominal discomfort. Workup in the emergency department is positive for urinary tract infection, and likely early small bowel obstruction as noted on CT scan [facility] with assessment risk for surgery consult as well. #Small bowel obstruction- History of multiple small bowel extractions in the past Previous abdominal surgeries including appendectomy, Adelaide fundoplication at [address] scan abdomen pelvis shows fluid-filled stomach, duodenum and proximal small bowel loops, mildly dilated small bowel loops with possible transition point in left pelvis;, with findings concerning for early small bowel obstruction N.p.o. Consult general surgery Pantoprazole 40 mg IV daily and famotidine 20 mg IV twice daily Stool culture, PCR and C. difficile studies ordered Zofran 4 mg IV every 6 hours as needed Phenergan 12.5 mg IV every 6 hours as needed Status post 2 L normal saline bolus in the ED Continue IV fluids NSS at 80 mL/h x 1 L Acetaminophen 1 g IV every 6 hours needed for mild pain or fever No NG tube at this time Has reportedly followed with [facility] for GI in the past, will attempt to reach out tomorrow CVID- Patient reports that she was due for Ig G transfusion today, however, will need to be temporarily delayed, usually gets infusion on Saturdays Follows with Dr. Kumar Aquino [facility] allergy and immunology, with daytime team to reach out tomorrow Urinary tract infection-follow urine culture sensitivities Due to immunocompromise state, will place on Zosyn and vancomycin IV for broad- spectrum coverage Follow blood cultures Remaining orders and notations as noted PG Care Time/CCT Total # of Minutes Spent Total Time Spent with Patient: Total time spent is greater than 50% in coordination of care (as documented) at patient's floor/unit and/or counseling patient: Coding Level of Care Code 82498 INT INP/OBS CARE MIN Diagnoses SBO (small bowel obstruction) K56.609 Acute UTI (urinary tract infection) N39.0 CVID (common variable immunodeficiency) D83.9 Leukocytosis D72.829 POTS (postural orthostatic tachycardia syndrome) G90.A
[2024-11-16] MEDS: PANTOprazole 40 MG/10 ML SYR IV ONE (23:03)
[2024-11-16] MEDS: MAGNESIUM SULFATE / D5W 1 GM/100 ML BAG IV ONE (23:03)
[2024-11-16] MEDS: PIPERACILLIN/TAZOBACTAM 4.5 GM/100 ML BAG IV ONE (23:52)
[2024-11-16] MEDS: SODIUM CHLORIDE 0.9% 1,000 ML IV SCH (23:53)
[2024-11-17] MEDS: VANCOMYCIN HCL 1,750 MG in SODIUM CHLORIDE 0.9% 500 ML IV ONE (00:42)
[2024-11-17] MEDS ORDERED: ONDANSETRON INJ 2 MG/ML 2 ML VIAL IV PRN (01:25)
[2024-11-17] MEDS ORDERED: VANCOMYCIN CONSULT ACTIVE PRN (01:25)
[2024-11-17] MEDS ORDERED: PROMETHAZINE 12.5 MG/50.5 ML BAG IV PRN (01:25)
[2024-11-17] MEDS ORDERED: ACETAMINOPHEN 1,000 MG/100 ML VIAL IV PRN (01:25)
[2024-11-17] MEDS ORDERED: METOPROLOL TARTRATE 1 MG/ML VIAL IV PRN (01:25)
[2024-11-17 01:57] VITALS: TEMP 98.4
[2024-11-17] MEDS: PIPERACILLIN/TAZOBACTAM 4.5 GM/100 ML BAG IV SCH (05:54)
[2024-11-17 06:34] LABS: Basophils # (auto) 0.02 K/uL (0.00-0.20); Basophils % (auto) 0.2 %; Hematocrit (blood only) 33.1 % (37.0-47.0); Hemoglobin 11.4 g/dl (12.0-16.0); Immature Granulocytes # (auto) 0.04 K/uL (0.01-0.20); Immature Granulocytes % (auto) 0.4 %; Lymphocytes # (auto) 0.55 K/uL (1.20-3.40); Lymphocytes % (auto) 5.6 %; Mean Corpuscular Hemoglobin 30.5 pg (25.0-34.0); Mean Corpuscular Hgb Conc 34.4 g/dL (32.0-36.0); Mean Corpuscular Volume 88.5 fL (80.0-100.0); Mean Platelet Volume 9.3 fL (9.4-12.4); Monocytes # (auto) 0.53 K/uL (0.11-0.59); Monocytes % (auto) 5.4 %; Neutrophils # (auto) 8.65 K/uL (1.40-6.50); Neutrophils % (auto) 88.4 %; Platelet Count 284 K/uL (130-400); RDW Coefficient of Variation 11.8 % (11.5-14.5); RDW Standard Deviation 38.1 fL (36.4-46.3); Red Blood Count 3.74 M/uL (4.20-5.40); White Blood Count 9.79 K/ul (4.8-10.8)
[2024-11-17 06:54] LABS: Albumin Globulin Ratio 1.3 (0.9-2); Albumin Level 3.6 gm/dl (3.4-5.0); BUN Creatinine Ratio 14.9 (10-20); Bilirubin,Total 0.5 mg/dl (0.2-1.0); Calcium 8.1 mg/dl (8.6-10.3); Creatinine Clr Calc Pharmacy 146.2 ml/min; Globulin 2.7 gm/dl (2.5-4.0); Magnesium 1.9 mg/dl (1.7-2.4); Potassium 3.8 mmol/L (3.5-5.1); Total Protein 6.3 gm/dl (6.0-8.3)
--- NOTE | 2024-11-17 07:18 | Electrocardiogram Report ---
Test Reason : Blood Pressure : */* mmHG Vent. Rate : 103 BPM Atrial Rate : 103 BPM P-R Int : 144 ms QRS Dur : 106 ms QT Int : 364 ms P-R-T Axes : 55 101 35 degrees QTcB Int : 476 ms Sinus tachycardia Rightward axis Low voltage QRS Incomplete right bundle branch block Nonspecific T wave abnormality Abnormal ECG No previous ECGs available Confirmed by Danilo Thornton ([id number]) on 11/17/2024 7:17:43 AM Referred By: REFERRED SELF Confirmed By: Danilo Thornton
--- NOTE | 2024-11-17 07:20 | Hospitalist Progress Note ---
Date of Service November 17, 2024 Assessment & Plan (1) SBO (small bowel obstruction): (2) Acute UTI (urinary tract infection): (3) CVID (common variable immunodeficiency): (4) Leukocytosis: (5) POTS (postural orthostatic tachycardia syndrome): Plan Patient is a 24-year-old female with a past medical history of CVID, POTS, history of SBO relieved by NG tube several years ago, anemia, anxiety/depression. She presented to the ED due to diarrhea, vomiting, confusion, fever, dizziness, and abdominal discomfort. Patient was found to have a UTI and CT showing concern for early SBO. She is being admitted by medicine team with surgery consult. #Small bowel obstruction history of SBO several years ago Previous abdominal surgeries include appendix removal, elizabeth fundoplication 21 mo/o CTAP showed fluid-filled stomach, duodenum, and proximal small bowel loops, mildly dilated small bowel loops with possible transition point in left pelvis; findings concerning for early small bowel obstruction Did have 1 episode of diarrhea a.m. of 2/ stool cultures ordered if patient has bowel movement - General Surgery consulted, appreciate recommendations; Gastroenteritis vs early SBO. No surgical intervention warranted at this time - Continue IV Protonix and Pepcid - Continue IV Zofran and IV Phenergan PRN - Trial clear liquid diet - Continue IVF with NSS at 80 mL/hour - IV Tylenol as needed noted that noted that patient previously followed with [facility] Dr. Geller? Day team to further investigate and reach out #UTI/CVID Immunocompromised with history of CVID; has weekly IgG injections on Saturdays; missed 11/16 due to illness Follows with Dr. Torrez, [facility] allergy and immunology - Day team to reach out UA appears infectious with elevated specific gravity, trace protein, trace k etones, hematuria, 11-20 WBC, 3+ bacteria; 11-20 epithelial cells so possible contaminant UTI 06/18/2024 treated with Bactrim, cultures grew 3 margaret, no ID or sensitivities Asymptomatic - Stop IV Zosyn and vancomycin due to less likely to need broad coverage with current symptoms and findings - Restart IV ceftriaxone to provide coverage for both Gram+ and Gram - - Follow blood and urine cultures #leukocytosis WBC 18.8 on admission, reduced to 9.79 this morning Lactate negative Afebrile - Follow blood and urine cultures - Trend CBC #POTS/tachycardia Tachycardic on admission, HR as high as 123; missed home medications today. Taking metoprolol 25 Mg at home. HR this morning ranging from 105-115. Electrolytes are stable. - Restart metoprolol 25mg - IV Lopressor prn for HR >[address] finding of hypodense cortical lesions within superior pole of left kidney that favor cortical cyst; ultrasound recommended outpatient follow-up Chronic stable diagnoses: anxiety/depression/ADHD/bipolar holding home p.o. medications (duloxetine, clonazepam, atomoxetine, lamotrigine) GERD famotidine transition to IV anemia - stable, holding iron and folic acid supplement VTE ppx: SCDs, defer chemical ppx as able to ambulate and potential for surgical intervention Diet: NPO Dispo: PCU with potential need for Lopressor Admission and Anticipated Discharge Date Admission Date: November 16, 2024 Subjective Pt is a 24 yo female who presented to ED with nausea, vomiting and diarrhea. CTAB showed possible dilated bowel. Surgery has been consulted. She has a history of several SBOs, starting more than 5 years ago. She follows with GI at [facility] in [place], [place]. Pt believes her last visit with GI was at least 2 years ago. 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 She sees them yearly for monitoring her immunodeficiency. She gives herself IGg injections weekly, but missed her injection on Monday due to illness. This morning, pt reports she is feeling better. She states she no longer has abdominal pain, nausea, vomiting. She did have excessive sweating over night, but no fevers. She denies chest pain, SOB, cough, congestion, chills, hematuria, increased urinary frequency/hesitation, suprapubic pain, numbness/tingling, joint pains or general weakness She endorses chest tightness and headache No hstory of asthma. Hx of POTS, take daily betablocker, has not taken in last 2 days due to nausea Review of Systems Review of Systems: As per HPI Physical Exam Physical Exam: The patient is awake, alert and oriented 3, well developed and well nourished, normocephalic and atraumatic, in no acute distress. Non-toxic appearing. HEENT- EOMI, mucous membranes moist. Hearing grossly intact. Heart-normal S1 and S2. Tachycardic No murmurs, rubs or gallops. Lungs-clear bilaterally, no wheezing, crackles or rhonchi, no respiratory dist ress, no accessory muscle use. Abdomen-normal bowel sounds and soft. Non-tender. Extremities- no clubbing, cyanosis, or edema. Rheumatologic-normal range of motion. Psychiatric-normal affect. Results & Data Results & Data Vital Signs (Past 12 Hours) Vital Signs Temp Pulse Pulse Resp BP Pulse Ox O2 Del Method 11/17/24 03:30 100 H 18 138/77 100 Room Air 11/17/24 01:44 113 H 21 102/68 99 Room Air 11/17/24 01:25 36.9 C 110 H 22 102/68 100 Room Air 11/17/24 01:25 11/17/24 01:23 115 H 11/17/24 00:00 103 H 17 140/85 100 Room Air 11/16/24 22:00 100 H 22 130/81 99 Room Air 11/16/24 21:39 113 H 11/16/24 20:00 109 H 20 122/72 100 Room Air O2 Del Method 11/17/24 03:30 11/17/24 01:44 11/17/24 01:25 11/17/24 01:25 Room Air 11/17/24 01:23 11/17/24 00:00 11/16/24 22:00 11/16/24 21:39 11/16/24 20:00
--- NOTE | 2024-11-17 07:54 | Surgery Consultation ---
Date of Consultation November 17, 2024 Assessment & Plan (1) CVID (common variable immunodeficiency): (2) SBO (small bowel obstruction): (3) Abdominal pain: (4) Nausea, vomiting, and diarrhea: Plan 24-year-old woman with CVID on immunosuppressants presents with a 2-day history of nausea vomiting and diarrhea. CT scan demonstrates possible early small bowel obstruction. I am not convinced that she has a bowel obstruction. She is feeling better today. She denies any nausea or vomiting today. Her CT scan could also represent a bad gastroenteritis. She is admitted to the hospital. Will continue to monitor her for now. No surgical intervention required at this time. History of Present Illness Reason for Consultation: Possible small bowel obstruction Requesting Physician: Jemal Mayo DO Attending Physician: Jemal Mayo DO History of Present Illness 24-year-old woman presents with a 2-day history of severe abdominal pain, nausea, vomiting, diarrhea, and fever/chills. Yesterday she was unable to hold any food down and vomited all day. She had liquid diarrhea for the better part of a 24-hour period. Her last bowel movement was approximately 7:00 yesterday morning. She has not had a bowel movement since that time. She denies significant flatus since that time. Today she states she is feeling better. She has no nausea or vomiting at this time. She is resting comfortably in bed. No fevers or chills currently. Allergies Allergy/AdvReac Type Severity Reaction Status Date / Time acetaminophen [From Percocet] Allergy Mild Verified 06/18/24 13:23 adhesive tape Allergy Mild Rash Verified 06/18/24 13:23 amoxicillin [From Augmentin] Allergy Mild hearing Verified 06/18/24 13:23 loss ciprofloxacin [From Cipro] Allergy Mild leg cramps Verified 06/18/24 13:23 clavulanic acid Allergy Mild hearing Verified 06/18/24 13:23 [From Augmentin] loss gluten Allergy Mild Verified 06/18/24 13:23 Milk Containing Products Allergy Mild Rash Verified 06/18/24 13:23 (Dairy) oxycodone [From Percocet] Allergy Mild Verified 06/18/24 13:23 Home Medications Medication Instructions Recorded Confirmed Type atomoxetine 40 mg capsule 40 mg PO DAILY 06/18/24 11/17/24 History clonazepam 1 mg tablet 1 mg PO DAILY PRN Seizure Activity 06/18/24 11/17/24 History duloxetine 60 mg capsule,delayed 60 mg PO DAILY 06/18/24 11/17/24 History release (Cymbalta) epinephrine 0.3 mg/0.3 mL 0.3 mg IM Q10M PRN allergic 06/18/24 11/17/24 History injection, auto-injector reaction erenumab-aooe 140 mg/mL 140 mg subcut DIRECTED 06/18/24 11/17/24 History subcutaneous auto-injector (Aimovig Autoinjector) famotidine 20 mg tablet 20 mg PO DAILY 06/18/24 11/17/24 History ferrous sulfate 325 mg (65 mg 325 mg PO DAILY 06/18/24 11/17/24 History iron) tablet fludrocortisone 0.1 mg tablet 0.1 mg PO DAILY 06/18/24 11/17/24 History fluticasone propionate 50 2 spray intranasal DAILY 06/18/24 11/17/24 History mcg/actuation nasal spray,suspension (Flonase Allergy Relief) folic acid 1 mg tablet 1 mg PO DAILY 06/18/24 11/17/24 History glycopyrrolate 1 mg tablet 1 mg PO BID 06/18/24 11/17/24 History immune globulin,gamma(IgG)klhw 1 1 g subcut WK 06/18/24 11/17/24 History gram/5 mL (20%) subcut solution lamotrigine 150 mg tablet 150 mg PO BID 06/18/24 11/17/24 History lidocaine-prilocaine 2.5 %-2.5 % 1 applic topical WK 06/18/24 11/17/24 History topical cream qvvisa-egwtwyqx-ezxqhga 1 cap PO BID 06/18/24 11/17/24 History 36,000-114,000-180,000 unit capsule,delay rel (Creon) metoprolol succinate 25 mg capsule 25 mg PO DAILY 06/18/24 11/17/24 History sprinkle, ext. release 24 hr nitroglycerin 2 % transdermal 1 inch transdermal BID 06/18/24 11/17/24 History ointment (Nitro-Bid) norethindrone acetate 5 mg tablet 5 mg PO DAILY 06/18/24 11/17/24 History trazodone 50 mg tablet 50 mg PO DAILY 06/18/24 11/17/24 History tretinoin 0.025 % topical cream 1 applic topical Q OTHER DAY 06/18/24 11/17/24 History ([employer]) vitamin B complex 1 tab PO DAILY 06/18/24 11/17/24 History Patient History Medical History Anxiety Hx SBO Surgical History History of appendectomy History of [place] fundoplication No significant past surgical history Social History Smoking Status: Never smoker Hx Alcohol Use: No Hx Substance Use: No Preferred Language: Turkish Communication Ability: Effective 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: No Beliefs That Will Affect Care: None Current Living Situation: Family Feels Safe at Home: Yes Assistive Devices: Glasses and Wheelchair Assistive Devices Comment: wheelchair for long distances Review of Systems Review of Systems: All systems reviewed & are unremarkable except as noted in HPI & below Physical Exam Constitutional: WD/WN, vitals as above Eyes: PERRL, conjunctivae normal, anicteric sclerae Neck: trachea midline, no thyromegaly Respiratory: normal respiratory effort; no respiratory distress and no labored breathing Cardiovascular: Rate/Rhythm: regular rate and regular rhythm Gastrointestinal (Abdomen): Inspection/Auscultation: abdomen normal to inspection; abdomen not distended Percussion/Palpation: abdomen soft; abdomen nontender, no guarding and abdomen not rigid Skin: no rashes, warm and dry Psychiatric: A+Ox3, euthymic affect Results & Data Vital Signs (Past 12 Hours) Vital Signs Temp Pulse Pulse Resp BP Pulse Ox O2 Del Method 11/17/24 07:24 118 H 11/17/24 03:30 100 H 18 138/77 100 Room Air 11/17/24 01:44 113 H 21 102/68 99 Room Air 11/17/24 01:25 36.9 C 110 H 22 102/68 100 Room Air 11/17/24 01:25 11/17/24 01:23 115 H 11/17/24 00:00 103 H 17 140/85 100 Room Air 11/16/24 22:00 100 H 22 130/81 99 Room Air 11/16/24 21:39 113 H 11/16/24 20:00 109 H 20 122/72 100 Room Air O2 Del Method 11/17/24 07:24 11/17/24 03:30 11/17/24 01:44 11/17/24 01:25 11/17/24 01:25 Room Air 11/17/24 01:23 11/17/24 00:00 11/16/24 22:00 11/16/24 21:39 11/16/24 20:00 Laboratory Results 11/17/24 11/16/24 11/16/24 Range/Units 05:58 17:53 17:12 WBC 9.79 (4.8-10.8) K/ul RBC 3.74 L (4.20-5.40) M/uL Hgb 11.4 L D (12.0-16.0) g/dl Hct 33.1 L (37.0-47.0) % MCV 88.5 (80.0-100.0) fL MCH 30.5 (25.0-34.0) pg MCHC 34.4 (32.0-36.0) g/dL RDW Std Deviation 38.1 (36.4-46.3) fL RDW Coeff of Kathy 11.8 (11.5-14.5) % Plt Count 284 (130-400) K/uL MPV 9.3 L (9.4-12.4) fL Immature Gran % (Auto) 0.4 % Neut % (Auto) 88.4 % Lymph % (Auto) 5.6 % [place] % (Auto) 5.4 % Eos % (Auto) 0.0 % Baso % (Auto) 0.2 % Neut # (Auto) 8.65 H (1.40-6.50) K/uL Lymph # (Auto) 0.55 L (1.20-3.40) K/uL [place] # (Auto) 0.53 (0.11-0.59) K/uL Eos # (Auto) 0.00 (0.00-0.50) K/uL Baso # (Auto) 0.02 (0.00-0.20) K/uL Immature Gran # (Auto) 0.04 (0.01-0.20) K/uL Stomatocytes Sodium 137 (136-145) mmol/L Potassium 3.8 (3.5-5.1) mmol/L Chloride 108 H (98-107) mmol/L Carbon Dioxide 22 (21-32) mmol/L Anion Gap 7 (3-11) BUN 10 (6-23) mg/dl Creatinine 0.67 (0.6-1.2) mg/dl Est Cr Clr Drug Dosing 146.2 ml/min eGFR 125.09 BUN/Creatinine Ratio 14.9 (10-20) Glucose 94 (70-99(Fasting)) mg/dl Lactate 0.8 (0.4-2.0) mmol/L Calcium 8.1 L (8.6-10.3) mg/dl Magnesium 1.9 (1.7-2.4) mg/dl Total Bilirubin 0.5 (0.2-1.0) mg/dl AST 22 (13-39) U/L ALT 29 (7-52) U/L Alkaline Phosphatase 75 (34-104) U/L Total Protein 6.3 D (6.0-8.3) gm/dl Albumin 3.6 (3.4-5.0) gm/dl Globulin 2.7 (2.5-4.0) gm/dl Albumin/Globulin Ratio 1.3 (0.9-2) Procalcitonin (0-0.5) ng/ml HCG, Qual (Negative) Urine Color Yellow Urine Appearance Cloudy A (Clear) Urine pH 6.0 (4.5-7.5) Ur Specific [place] 1.033 H (1.000-1.030) Urine Protein Trace H (Negative) Urine Glucose (UA) Negative (Negative) Urine Ketones Trace H (Negative) Urine Blood 1+ H (Negative) Urine Nitrite Negative (Negative) Urine Bilirubin Negative (Negative) Urine Urobilinogen Negative (Negative) Ur Leukocyte Esterase Trace H (Negative) Urine WBC (Auto) 11-20 H (0-5) /hpf Urine RBC (Auto) >20 H (0-2) /hpf U Hyaline Cast (Auto) 0-2 (0-2) /lpf U Epithel Cells (Auto) 11-20 H (0-2) /hpf Urine Bacteria (Auto) 3+ H (None Seen) Urine Mucus Present A (None Prsent) Adenovirus (PCR) (NotDetected) B. pertussis DNA (PCR) (NotDetected) B.parapertussis DNA PCR (NotDetected) C. pneumoniae DNA (PCR) (NotDetected) Coronavirus OC43 (PCR) (NotDetected) Coronavirus HKU1 (PCR) (NotDetected) Coronavirus 229E (PCR) (NotDetected) SARS-CoV-2 (PCR) (NotDetected) Coronavirus NL63 (PCR) (NotDetected) Human Metapneumovir PCR (NotDetected) Influenza Type A (PCR) (NotDetected) Influenza Type B (PCR) (NotDetected) M. pneumoniae (PCR) (NotDetected) Parainfluenza 1 (PCR) (NotDetected) Parainfluenza 2 (PCR) (NotDetected) Parainfluenza 3 (PCR) (NotDetected) Parainfluenza 4 (PCR) (NotDetected) RSV (PCR) (NotDetected) Entero/Rhino (PCR) (NotDetected) 11/16/24 11/16/24 Range/Units 17:06 17:05 WBC 18.88 H (4.8-10.8) K/ul RBC 5.08 (4.20-5.40) M/uL Hgb 14.9 (12.0-16.0) g/dl Hct 44.5 (37.0-47.0) % MCV 87.6 (80.0-100.0) fL MCH 29.3 (25.0-34.0) pg MCHC 33.5 (32.0-36.0) g/dL RDW Std Deviation 38.0 (36.4-46.3) fL RDW Coeff of Kathy 11.8 (11.5-14.5) % Plt Count 410 H (130-400) K/uL MPV 9.3 L (9.4-12.4) fL Immature Gran % (Auto) 0.4 % Neut % (Auto) 94.0 % Lymph % (Auto) 2.7 % [place] % (Auto) 2.5 % Eos % (Auto) 0.2 % Baso % (Auto) 0.2 % Neut # (Auto) 17.76 H (1.40-6.50) K/uL Lymph # (Auto) 0.51 L (1.20-3.40) K/uL [place] # (Auto) 0.48 (0.11-0.59) K/uL Eos # (Auto) 0.03 (0.00-0.50) K/uL Baso # (Auto) 0.03 (0.00-0.20) K/uL Immature Gran # (Auto) 0.07 (0.01-0.20) K/uL Stomatocytes 1+ Sodium 136 (136-145) mmol/L Potassium 4.1 (3.5-5.1) mmol/L Chloride 104 (98-107) mmol/L Carbon Dioxide 23 (21-32) mmol/L Anion Gap 9 (3-11) BUN 15 (6-23) mg/dl Creatinine 0.83 (0.6-1.2) mg/dl Est Cr Clr Drug Dosing 118.0 ml/min eGFR 100.89 BUN/Creatinine Ratio 18.1 (10-20) Glucose 117 H (70-99(Fasting)) mg/dl Lactate (0.4-2.0) mmol/L Calcium 9.8 (8.6-10.3) mg/dl Magnesium 1.8 (1.7-2.4) mg/dl Total Bilirubin 0.7 (0.2-1.0) mg/dl AST 34 (13-39) U/L ALT 46 (7-52) U/L Alkaline Phosphatase 103 (34-104) U/L Total Protein 8.8 H (6.0-8.3) gm/dl Albumin 5.0 (3.4-5.0) gm/dl Globulin 3.8 (2.5-4.0) gm/dl Albumin/Globulin Ratio 1.3 (0.9-2) Procalcitonin 0.04 (0-0.5) ng/ml HCG, Qual Negative (Negative) Urine Color Urine Appearance (Clear) Urine pH (4.5-7.5) Ur Specific [place] (1.000-1.030) Urine Protein (Negative) Urine Glucose (UA) (Negative) Urine Ketones (Negative) Urine Blood (Negative) Urine Nitrite (Negative) Urine Bilirubin (Negative) Urine Urobilinogen (Negative) Ur Leukocyte Esterase (Negative) Urine WBC (Auto) (0-5) /hpf Urine RBC (Auto) (0-2) /hpf U Hyaline Cast (Auto) (0-2) /lpf U Epithel Cells (Auto) (0-2) /hpf Urine Bacteria (Auto) (None Seen) Urine Mucus (None Prsent) Adenovirus (PCR) Not Detected (NotDetected) B. pertussis DNA (PCR) Not Detected (NotDetected) B.parapertussis DNA PCR Not Detected (NotDetected) C. pneumoniae DNA (PCR) Not Detected (NotDetected) Coronavirus OC43 (PCR) Not Detected (NotDetected) Coronavirus HKU1 (PCR) Not Detected (NotDetected) Coronavirus 229E (PCR) Not Detected (NotDetected) SARS-CoV-2 (PCR) Not Detected (NotDetected) Coronavirus NL63 (PCR) Not Detected (NotDetected) Human Metapneumovir PCR Not Detected (NotDetected) Influenza Type A (PCR) Not Detected (NotDetected) Influenza Type B (PCR) Not Detected (NotDetected) M. pneumoniae (PCR) Not Detected (NotDetected) Parainfluenza 1 (PCR) Not Detected (NotDetected) Parainfluenza 2 (PCR) Not Detected (NotDetected) Parainfluenza 3 (PCR) Not Detected (NotDetected) Parainfluenza 4 (PCR) Not Detected (NotDetected) RSV (PCR) Not Detected (NotDetected) Entero/Rhino (PCR) Not Detected (NotDetected) Diagnostic Findings HISTORY: Nausea, vomiting, and diarrhea. TECHNIQUE: Helical CT imaging of the abdomen and pelvis was performed following uneventful administration of 92 cc of Optiray 320 IV contrast. Axial, sagittal, coronal reformats are provided. COMPARISON: None. FINDINGS: The lung bases are clear. The liver, gallbladder, spleen, adrenal glands, and pancreas are unremarkable. Hypodense lesions within the superior right kidney favoring cysts. No hydronephrosis. Distal esophagus is unremarkable. The stomach and duodenum are fluid-filled. Fluid-filled loops of small bowel. There is transition point in the left pelvis on series 2 image 58 concerning for small bowel obstruction with dilated loops of small bowel measuring up to 2.5 cm in diameter. The colon is normal in caliber. The appendix is not identified. The urinary bladder and uterus are unremarkable. No free pelvic fluid. No enlarged lymph nodes are identified. No abdominal aortic aneurysm. Retroaortic left renal vein. The soft tissues of the body wall are unremarkable. No acute osseous abnormality. IMPRESSION: 1. Fluid-filled stomach, Duodenum, and proximal small bowel loops. Mildly dilated small bowel loops measuring up to 2.5 cm in diameter with possible transition point in the left pelvis on series 2 image 58. Findings concerning for early small bowel obstruction. 2. Hypodense cortical lesions within the superior pole of the left kidney favor cortical cysts. Correlation with renal ultrasound is recommended. 3. The appendix is not identified. 4. Additional chronic and/or incidental findings as above. Findings were discussed with the ordering provider Nimisha Wynn via telephone at 7:30 PM on 11/16/2024. Electronically signed by Dillon Sheppard 11-16-2024 7:31 PM
[2024-11-17] MEDS: PANTOprazole 40 MG/10 ML SYR IV SCH (09:14)
[2024-11-17] MEDS: FAMOTIDINE 20MG IV PUSH 20 MG/5 ML SYR IV SCH (09:22)
[2024-11-17] MEDS: VANCOMYCIN HCL 1,500 MG in SODIUM CHLORIDE 0.9% 500 ML IV SCH (09:59)
[2024-11-17] MEDS: METOPROLOL SUCC 25MG EXT REL TAB PO SCH (11:04)
[2024-11-17 11:41] VITALS: RESP 18
[2024-11-17 12:21] VITALS: BP 122/84; O2SAT 100
--- NOTE | 2024-11-17 13:41 | Discharge Summary ---
Date of Service November 17, 2024 Admission HPI Per Admitting Provider Patient is a 24-year-old female with a past medical history of CVID, POTS, history of SBO relieved by NG tube several years ago, anemia, anxiety/depression. She presented to the ED due to diarrhea, vomiting, confusi on, fever, dizziness, and abdominal discomfort. Patient was found to have a UTI and CT showing concern for early SBO. She is being admitted by medicine team with surgery consult. Patient seen at bedside. She stated this morning she had an episode of liquid diarrhea but has had no bowel movements since. She also had nausea, vomiting, dizziness, confusion and felt feverish. She does endorse having a little bit of flatulence since. She felt very hot while at home but did not take her temperature, afebrile on admission. She stated she also had abdominal discomfort and became bloated throughout the day. She has had a history of small bowel obstruction several years ago that was relieved with NG tube. She has had previous abdominal surgeries including appendix removal and nisin fundoplication when she was 21 months old. She had tube feedings for approximately 12 years. She last ate this morning, only had a few pretzels. Patient stated she used to follow with [facility] Dr. Cash, who she no longer has to follow due to improvement of GI diagnoses. She also mention she previously took bowel preps when this happened. She denies any urinary symptoms, no dysuria, no difficulty urinating, no hematuria. She does have a history of a UTI in June in which she was prescribed Bactrim; cultures grew 3 margaret, no ID or sensitivities. She did have increase in urination with this, currently denies. UA appears infectious on admission. No previous positive cultures on file. Patient is immunocompromised with history of CVID requiring weekly IgG infusions on Saturdays. She did not go to her infusion today because she felt so sick. She follows with Dr. Torrez, [facility] allergy and immunology. She also has a history of POTS in which she takes metoprolol for because her heart rate typically becomes elevated. Heart rate 123 on admission, she did not take any of her morning medications today. Likely component of dehydration as well. She denies use of nicotine products, alcohol, or illicit drugs. She denies past history of COPD, asthma, DM. She did not take any of her home medications today. She is not on chronic antibiotic suppressive therapy. She wishes to be full code. Principal Diagnosis SBO vs gastroenteritis Discharge Exam The patient is awake, alert and oriented 3, well developed and well nourished, normocephalic and atraumatic, in no acute distress. Non-toxic appearing. HEENT- EOMI, mucous membranes moist. Hearing grossly intact. Heart-normal S1 and S2. Tachycardic No murmurs, rubs or gallops. Lungs-clear bilaterally, no wheezing, crackles or rhonchi, no respiratory distress, no accessory muscle use. Abdomen-normal bowel sounds and soft. Non-tender. Extremities- no clubbing, cyanosis, or edema. Rheumatologic-normal range of motion. Psychiatric-normal affect. Discharge Data Allergies Allergy/AdvReac Type Severity Reaction Status Date / Time acetaminophen [From Percocet] Allergy Mild Verified 06/18/24 13:23 adhesive tape Allergy Mild Rash Verified 06/18/24 13:23 amoxicillin [From Augmentin] Allergy Mild hearing Verified 06/18/24 13:23 loss ciprofloxacin [From Cipro] Allergy Mild leg cramps Verified 06/18/24 13:23 clavulanic acid Allergy Mild hearing Verified 06/18/24 13:23 [From Augmentin] loss gluten Allergy Mild Verified 06/18/24 13:23 Milk Containing Products Allergy Mild Rash Verified 06/18/24 13:23 (Dairy) oxycodone [From Percocet] Allergy Mild Verified 06/18/24 13:23 Consultations 11/16/24 21:05 Consult General Surgery Routine ED Decision to Admit Stat Ordered Studies 11/16/24 18:06 CT Abd and Pelvis [CT abd pelvis IV con only] Stat Hospital Course (1) SBO (small bowel obstruction): (2) Acute UTI (urinary tract infection): (3) CVID (common variable immunodeficiency): (4) Leukocytosis: (5) POTS (postural orthostatic tachycardia syndrome): Plan Patient is a 24-year-old female with a past medical history of CVID, POTS, history of SBO relieved by NG tube several years ago, anemia, anxiety/depression. She presented to the ED due to diarrhea, vomiting, confusion, fever, dizziness, and abdominal discomfort. Patient was found to have a UTI and CT showing concern for early SBO. She is being admitted by medicine team with surgery consult. #Small bowel obstruction history of multiple SBOs since childhood Previous abdominal surgeries include appendectomy, and Adelaide fundoplication 21 mo/o CTAP showed fluid-filled stomach, duodenum, and proximal small bowel loops, mildly dilated small bowel loops with possible transition point in left pelvis; findings concerning for early small bowel obstruction 1 episode of diarrhea a.m. of 11/16 stool cultures ordered if patient has bowel movement - General Surgery consulted, appreciate recommendations; Gastroenteritis vs early SBO. No surgical intervention warranted at this time - Continue IV Protonix and Pepcid - Continue IV Zofran and IV Phenergan PRN - Trial clear liquid diet and progress diet as tolerated - Continue IVF with NSS at 80 mL/hour, can stop if pt is able to tolerate PO - IV Tylenol as needed #UTI/CVID Immunocompromised with history of CVID; has weekly IgG injections on Saturdays; missed 11/16 due to illness Follows with Dr. Torrez, [facility] allergy and immunology UA appears infectious with elevated specific gravity, trace protein, trace ketones, hematuria, 11-20 WBC, 3+ bacteria; 11-20 epithelial cells so possible contaminant UTI 06/18/2024 treated with Bactrim, cultures grew 3 margaret, no ID or sensitivities Asymptomatic - Stop IV Zosyn and vancomycin due to less likely to need continued broad coverage with asymptomatic bacteruria - Follow blood and urine cultures #leukocytosis WBC 18.8 on admission, reduced to 9.79 this morning Lactate negative Afebrile - Follow blood and urine cultures - Trend CBC #POTS/tachycardia Tachycardic on admission, HR as high as 123; missed home medications today. Taking metoprolol 25 Mg at home. HR this morning ranging from 105-115. Electrolytes are stable. - Restart metoprolol po 25mg qd - IV Lopressor prn for HR >[address] finding of hypodense cortical lesions within superior pole of left kidney that favor cortical cyst; ultrasound recommended outpatient follow-up Chronic stable diagnoses: anxiety/depression/ADHD/bipolar holding home p.o. medications (duloxetine, clonazepam, atomoxetine, lamotrigine) GERD famotidine transition to IV anemia - stable, holding iron and folic acid supplement. Total Time Total Time Spent Total Time Spent (In Minutes): <30 Discharge Plan Discharge Items Patient Disposition: Home - Self-Care Reason For Visit: SBO, UTI, IMMUNOCOMPROMISED (CVID) Discharge Diagnosis: SBO Activity: Resume your previous activity Non-emergency contact: Primary Care Provider Call non-emergency contact if: your symptoms worsen Follow-up/Referrals: [facility] [Primary Care Provider] - Diet: Regular Addtl Attending Provider Instructions: You were admitted for abdominal pain, nausea, vomiting and diarrhea. Imaging showed signs of a possible early small bowel obstruction. We gave you IV medication to help with the nausea, IV fluids and held food for several hours for bowel rest. By the next day, your gastrointestinal symptoms were improved, and we started you back on a liquid/bland diet. A urine test showed a possible urinary tract infection, however you were also dehydrated and without the usual urinary infection symptoms. As a precaution, due to your immunocompromised condition, you received IV antibiotics as well as IV fluids. On the abdominal imaging, the radiologist noted the presence of lesions on your left kidney. These are possibly just an incidental finding. At this time, we are advising that you make your PCP aware of this finding and pursue more investigation in the outpatient setting. Please follow up with your PCP within 7 days of hospital discharge. Thank you for allowing us to care for you at [facility]. Pending Studies at Discharge: Yes Studies:: Blood and urine cultures Stand-Alone Forms: My [facility] Colibri Heart Valve, Smoking Cessation Medications and DC Order Prescriptions: Continued duloxetine [Cymbalta] 60 mg capsule,delayed release(DR/EC) 60 mg PO DAILY atomoxetine 40 mg capsule 40 mg PO DAILY glycopyrrolate 1 mg tablet 1 mg PO BID norethindrone acetate 5 mg tablet 5 mg PO DAILY epinephrine 0.3 mg/0.3 mL auto-injector 0.3 mg IM Q10M PRN (Reason: allergic reaction ) Rx Instructions: for 2 doses fludrocortisone 0.1 mg tablet 0.1 mg PO DAILY metoprolol succinate 25 mg capsule,sprinkle,ER 24hr 25 mg PO DAILY famotidine 20 mg tablet 20 mg PO DAILY trazodone 50 mg tablet 50 mg PO DAILY lamotrigine 150 mg tablet 150 mg PO BID Aimovig Autoinjector 140 mg/mL auto-injector 140 mg subcut DIRECTED immune globulin,gamma(IgG)klhw 1 gram/5 mL (20 %) solution 1 g subcut WK ferrous sulfate 325 mg (65 mg iron) tablet 325 mg PO DAILY Creon 36,000-114,000- 180,000 unit capsule,delayed release(DR/EC) 1 cap PO BID Rx Instructions: administer with meals and/or snacks clonazepam 1 mg tablet 1 mg PO DAILY PRN (Reason: Seizure Activity) tretinoin [Avita] 0.025 % cream 1 applic topical Q OTHER DAY fluticasone propionate [Flonase Allergy Relief] 50 mcg/actuation spray,suspension 2 spray intranasal DAILY Rx Instructions: administer into each nostril lidocaine-prilocaine 2.5-2.5 % cream 1 applic topical WK Rx Instructions: with infusions folic acid 1 mg tablet 1 mg PO DAILY vitamin B complex Tablet 1 tab PO DAILY Nitro-Bid 2 % ointment 1 inch transdermal BID Rx Instructions: administer 2 doses/day (approx. 6 hrs apart); remove for 10-12 hrs per 24 hours Discharge Orders: Discharge Order (Routine); Ordered 11/17/24 Ordered By: Yessi Bentley Admission Data Admit Date/Time: 11/16/24 21:39 Attending Provider: Jemal Mayo Admit Provider: Adelso June Primary Care Provider: [facility] Other Providers: Adelso June; Luis Harmon. Other Interventions: Discharge Summary Assessment (RN) Last Done: 11/17/24 15:18 Supervising Physician Co-Signing Physician Notes I personally examined the patient and verified all lizarraga points of history and exam, discussed case, and agree with decision making with Dr Bentley feeling better eating better feels up to going home (later tolerated regular food) vitals noted nad heent nc at mmm abd soft mild distention nontender no guarding rebound rigidity SBO vs less likely but possible viral GE - either way improving. advanced diet to regular, tolerated well. safe for home. otherwise as above Resident Activity Tracking Resident Involvement: Resident Care Provided Care Provided: Adult Hospital Medicine
[2024-11-17 15:20] VITALS: PULSE 91
--- NOTE | 2024-11-17 16:11 | Billing Data ---
Date of Service November 17, 2024 Coding Level of Care Code 15585 IN/OBS DISCH 30 MIN/LESS
== END 2024-11-17 15:53 | disposition home or self-care (01) | DRG 389 ==
LOC: SUATTDRO → ED 16:45 → EDINP 21:39 → SUATTDRO 21:39 → 1E 11-17 11:40